=== PATIENT | male | born 1930 | race Caucasian/White ===

== ENCOUNTER → 2017-01-06 | Outpatient (CLI) | payer MEDICARE ==
[2016-01-28 15:00] VITALS: BP 149/65
[~2017-01-06] MED LIST: ACET325T16 PO; ALBU2.5V14 NEB; AMLO10TA2 PO; Amoxicillin/Potassium Clav PO; BUME1TAB PO; CARV3.12 PO; CARV3.122 PO; FLUT1DIS3 IH; FURO-68 PO; FURO20TA3 PO; FURO40TA4 PO; GLIP5TAB10 PO; IPRA3AMP IH; LOSA100T6 PO; LOSA25TA4 PO; LOSA50TA2 PO; METF500T4 PO; METH4TAB6 PO; METO2.5T PO; PANT40TA5 PO; POTA10TA12 PO; PRED-220 PO; PROAIR HFA8.5 GM IH; SIMV10TA3 PO; WARF1TAB7 PO; WARF1TAB74 PO; WARF2.5T71 PO; WARF3TAB7 PO; WARF5TAB7 PO
--- NOTE | 2017-01-06 09:49 | CARD ---
APPROVED REPORT EXAM: Two-dimensional and M-mode echocardiogram with Doppler and color Doppler. Other Information Quality : Fair INDICATION LV Function:Diastolic Diastolic Heart Failure Surgery/Intervention ICD/Pacemaker: 2D DIMENSIONS RVDd3.0 (2.9-3.5cm)Left Atrium(2D)3.6 (1.6-4.0cm) IVSd1.2 (0.7-1.1cm)Aortic Root(2D)2.9 (2.0-3.7cm) LVDd5.3 (3.9-5.9cm)LVOT Diameter2.4 (1.8-2.4cm) PWd1.2 (0.7-1.1cm)LVDs4.1 (2.5-4.0cm) FS (%) 20.0 %SV61.0 ml LVEF(%)40.0 (>50%) Aortic Valve AoV Peak Dedrick.129.3cm/sAoV VTI25.9cm AO Peak GR.6.7mmHgLVOT Peak Dedrick.86.6cm/s AO Mean GR.4mmHgAVA (VMAX)2.98cm2 RAYMUNDO (VTI)3.10cm2 Mitral Valve MV E Sxjqtkuv14.6cm/sMV DECEL [id number] MV A Zihkdimg884.5cm/sE/A Ratio0.5 LEFT VENTRICLE The left ventricle is normal size. There is mild concentric left ventricular hypertrophy. Mild to mod erate left ventricular systolic dysfunction. The Ejection Fraction is 40%. Apical motion consistent w ith pacemaker activation. Transmitral Doppler flow pattern is Grade I-abnormal relaxation pattern. RIGHT VENTRICLE The right ventricle is normal size. The right ventricular systolic function is normal. There is a pac emaker lead in the right ventricle. ATRIA The left atrium size is normal. The right atrium size is normal. A pacemaker is seen in the right atr ium consistent with history. The interatrial septum is intact with no evidence for an atrial septal d efect or patent foramen ovale as noted on 2-D or Doppler imaging. AORTIC VALVE The aortic valve is calcified but opens well. Doppler and Color Flow revealed no significant aortic r egurgitation. There is no significant aortic valvular stenosis. MITRAL VALVE The mitral valve is normal in structure and function. There is no evidence of mitral valve prolapse. There is no mitral valve stenosis. Doppler and Color-flow revealed trace mitral regurgitation. TRICUSPID VALVE The tricuspid valve is normal in structure and function. Doppler and Color Flow revealed no tricuspid valve regurgitation noted. There is no tricuspid valve stenosis. PULMONIC VALVE The pulmonary valve is normal in structure and function. Doppler and Color Flow revealed no pulmonic valvular regurgitation. There is no pulmonic valvular stenosis. GREAT VESSELS The aortic root is normal in size. The ascending aorta is normal in size. The IVC is normal in size a nd collapses >50% with inspiration. PERICARDIAL EFFUSION There is no evidence of significant pericardial effusion. Critical Notification Critical Value: No <Conclusion> Mild to moderate left ventricular systolic dysfunction. Apical motion consistent with pacemaker activation. The Ejection Fraction is 40%. Transmitral Doppler flow pattern is Grade I-abnormal relaxation pattern. There is a pacemaker lead in the right atrium and right ventricle. Doppler and Color-flow revealed trace mitral regurgitation. There is no evidence of significant pericardial effusion.
== END | disposition home or self-care (01) ==
LOC: ECHO 07:49
PROVIDERS: ATTEND Internal Medicine Cardiovascular Disease
DX: I51.7 Cardiomegaly (principal); I50.30 Unspecified diastolic (congestive) heart failure; Z95.0 Presence of cardiac pacemaker
CPT/HCPCS: 93306

== ENCOUNTER → 2017-01-16 | Outpatient (CLI) | payer MEDICARE ==
[2016-01-28 15:00] VITALS: BP 149/65
[~2017-01-16] MED LIST changes: +REGADENOSON 0.4 MG/5 ML DISP.SYRIN. IV ONE
--- NOTE | 2017-01-17 11:15 | RAD ---
APPROVED REPORT Test Type: Pharmacological Stress Nurse/Tech: anuel jaramillo Test Indications: fatigue, dyspnea with exertion Cardiac History: PACEMAKER, HTN, SEE EHR Medications: SEE EHR Medical History: COPD, EMPHYSEMA, DIABETES, REMOTE SMOKING HISTORY, SEE EHR Resting ECG: V PACED IRREGULAR Resting Heart Rate: 69 bpm Resting Blood Pressure: 147/65mmHg Pretest Chest Pain: No chest pain Nurse/Tech Notes DO DISTRESS NOTED, NO CHEST PAIN. PT IS ON 3L NC. Consent: The procedure was explained to the patient in lay terms. Informed consent was witnessed. Jose eout was entered into [facility]. History and Stress Test performed by RT Duane (Shay) (N) Pharm. Details Pharmacologic stress testing was performed using 0.4mg per 5ml of regadenoson given intravenously ove r 7-10 seconds. Stress Symptoms NONE STATED. POST EXERCISE Reason for Termination: Infusion complete Max HR: 89 bpm Max Blood Pressure: 147/65mmHg Chest Pain: No. Arrhythmia: No. ST Change: No. INTERPRETATION Stress EKG Conclusion: Non-diagnostic EKG due to pacing. Imaging Protocol IMAGE PROTOCOL: Rest Tc-99m/stress Tc-99m 1 day Rest: Stress: Viability: Radiopharm.Tc99m NmmlzlzwwZh95j Sestamibi Dose12.1mCi 32mCi Duration 15min. 10min. Img Date 01/16/2017 01/16/2017 Inj-Img Qshe90qez. 60min. Rest Admin Site:IV - Right AntecubitalAdministrator:TINA Guardado Stress Admin Site: IV - Right AntecubitalAdministrator: RT Duane (Shay)(N) STRESS DATA End Diast. Vol.214.0mlAv. Heart Rate90.0bpm End Syst. Vol.124.0mlCO Index BSA0.0L/min Myocardial Wdfo846.0gEject. Dgcgpddl80.0% Stress Rates Pk. Fill Rate2.49EDV/secLVtime Pk. Fill 116.49msec Pk. Empty Rate2.75ESV/secLVtime Pk. Jyuqm620.67msec 03/29 Pk. Fill1.27EDV/sec Stress Scores Regional WT2.00Summed WT30.00 Regional WM0.00Summed WM20.00 LV Perfusion There is a fixed defect of severe intensity and moderate to large in size involving the mid to distal himanshu-septum, apex and mid to distal inferior wall. Wall Motion Moderate global hypokinesis with an EF of 42%. LV Perf. Quant 17 Seg. SSS13.00 17 Seg. SRS13.00 17 Seg. SDS1.00 Stress Defect Extent (% LAD)33.80Rest Defect Extent (% LAD)41.90Rev. Defect Extent (% LAD)0.00 Stress Defect Extent (% LCX) 5.00Rest Defect Extent (% LCX)13.80Rev. Defect Extent (% LCX)0.00 Stress Defect Extent (% RCA)51.10Rest Defect Extent (% RCA)28.90Rev. Defect Extent (% RCA)4.40 Stress Defect Extent (% DUARTE)29.10Rest Defect Extent (% DUARTE)29.60Rev. Defect Extent (% DUARTE)0.90 Other Information Quality:Average Risk Assessment: Moderate Risk Conclusion 1. Non-diagnostic EKG due to pacing. 2. Fixed defect without any evidence of active ischemia or reversibility 3. Moderate LV dysfunction. EF 42% 4. Moderate risk study.
== END | disposition home or self-care (01) ==
LOC: NM 07:43
PROVIDERS: ATTEND Internal Medicine Cardiovascular Disease
DX: E11.9 Type 2 diabetes mellitus without complications (principal); J44.9 Chronic obstructive pulmonary disease, unspecified; I10 Essential (primary) hypertension; I42.9 Cardiomyopathy, unspecified; I49.5 Sick sinus syndrome; R53.83 Other fatigue; R06.00 Dyspnea, unspecified
CPT/HCPCS: 78452; 93017; 96374; 96375; 96376; A9500; J2785

== ENCOUNTER → 2017-04-12 | Outpatient (CLI) | payer MEDICARE | END | disposition home or self-care (01) | LOC: RAD 08:32 | DX: J18.9 Pneumonia, unspecified organism (principal); I51.7 Cardiomegaly; R06.02 Shortness of breath | CPT/HCPCS: 71046 ==

== ENCOUNTER → 2017-05-05 | Outpatient (CLI) | payer MEDICARE | END | disposition home or self-care (01) | LOC: RAD 08:30 | DX: J18.9 Pneumonia, unspecified organism (principal) | CPT/HCPCS: 71046 ==

== ENCOUNTER 2017-05-15 07:51 | Emergency (ER) | payer MEDICARE ==
[2017-05-15 09:14] LABS: POC GLUCOSE 306 mg/dL (70-99)
[2017-05-15] MEDS: DIPHTH,PERTUSS(ACELL),TET TOX 0.5 ML DISP.SYRIN. VAX IM ×2 (09:31)
== END 2017-05-15 10:12 | disposition home or self-care (01) ==
LOC: ER 07:51
DX: S81.812A Laceration without foreign body, left lower leg, initial encounter (principal); E11.9 Type 2 diabetes mellitus without complications; E78.00 Pure hypercholesterolemia, unspecified; I10 Essential (primary) hypertension; I48.91 Unspecified atrial fibrillation; J44.9 Chronic obstructive pulmonary disease, unspecified; Z95.0 Presence of cardiac pacemaker; Z85.46 Personal history of malignant neoplasm of prostate; Z79.01 Long term (current) use of anticoagulants; Z23 Encounter for immunization; W01.0XXA Fall on same level from slipping, tripping and stumbling without subsequent striking against object, initial encounter; Y93.89 Activity, other specified; Y92.89 Other specified places as the place of occurrence of the external cause; Y99.8 Other external cause status
CPT/HCPCS: 73590; 82962; 90471; 90715; 99284-25

== ENCOUNTER → 2017-05-16 | Outpatient (CLI) | payer MEDICARE | END | disposition home or self-care (01) | LOC: PMGWOUND 09:16 | DX: E11.622 Type 2 diabetes mellitus with other skin ulcer (principal); L97.222 Non-pressure chronic ulcer of left calf with fat layer exposed; S80.212A Abrasion, left knee, initial encounter; E11.42 Type 2 diabetes mellitus with diabetic polyneuropathy; E11.65 Type 2 diabetes mellitus with hyperglycemia; E11.51 Type 2 diabetes mellitus with diabetic peripheral angiopathy without gangrene; E11.22 Type 2 diabetes mellitus with diabetic chronic kidney disease; I13.0 Hypertensive heart and chronic kidney disease with heart failure and stage 1 through stage 4 chronic kidney disease, or unspecified chronic kidney disease; N18.3 Chronic kidney disease, stage 3 (moderate); I50.43 Acute on chronic combined systolic (congestive) and diastolic (congestive) heart failure; I25.2 Old myocardial infarction; I25.10 Atherosclerotic heart disease of native coronary artery without angina pectoris; I48.2 Chronic atrial fibrillation; E78.5 Hyperlipidemia, unspecified; M19.90 Unspecified osteoarthritis, unspecified site; G47.33 Obstructive sleep apnea (adult) (pediatric); J44.9 Chronic obstructive pulmonary disease, unspecified; J96.21 Acute and chronic respiratory failure with hypoxia; J44.0 Chronic obstructive pulmonary disease with (acute) lower respiratory infection; J44.1 Chronic obstructive pulmonary disease with (acute) exacerbation; Z85.830 Personal history of malignant neoplasm of bone; Z85.46 Personal history of malignant neoplasm of prostate; Z85.828 Personal history of other malignant neoplasm of skin; Z89.202 Acquired absence of left upper limb, unspecified level; Z87.891 Personal history of nicotine dependence; Z95.810 Presence of automatic (implantable) cardiac defibrillator; V79.60XA Unspecified bus occupant injured in collision with unspecified motor vehicles in traffic accident, initial encounter; Y93.9 Activity, unspecified; Y99.8 Other external cause status; Y92.9 Unspecified place or not applicable | CPT/HCPCS: 99214 ==

== ENCOUNTER → 2017-05-23 | Outpatient (CLI) | payer MEDICARE | END | disposition home or self-care (01) | LOC: PMGWOUND 09:30 | DX: E11.622 Type 2 diabetes mellitus with other skin ulcer (principal); L97.222 Non-pressure chronic ulcer of left calf with fat layer exposed; S80.212D Abrasion, left knee, subsequent encounter; E11.42 Type 2 diabetes mellitus with diabetic polyneuropathy; E11.65 Type 2 diabetes mellitus with hyperglycemia; E11.51 Type 2 diabetes mellitus with diabetic peripheral angiopathy without gangrene; E11.22 Type 2 diabetes mellitus with diabetic chronic kidney disease; I13.0 Hypertensive heart and chronic kidney disease with heart failure and stage 1 through stage 4 chronic kidney disease, or unspecified chronic kidney disease; N18.3 Chronic kidney disease, stage 3 (moderate); I50.43 Acute on chronic combined systolic (congestive) and diastolic (congestive) heart failure; I25.2 Old myocardial infarction; I25.10 Atherosclerotic heart disease of native coronary artery without angina pectoris; I48.2 Chronic atrial fibrillation; E78.5 Hyperlipidemia, unspecified; M19.90 Unspecified osteoarthritis, unspecified site; G47.33 Obstructive sleep apnea (adult) (pediatric); J44.9 Chronic obstructive pulmonary disease, unspecified; J96.21 Acute and chronic respiratory failure with hypoxia; J44.0 Chronic obstructive pulmonary disease with (acute) lower respiratory infection; J44.1 Chronic obstructive pulmonary disease with (acute) exacerbation; Z85.830 Personal history of malignant neoplasm of bone; Z85.46 Personal history of malignant neoplasm of prostate; Z85.828 Personal history of other malignant neoplasm of skin; Z89.202 Acquired absence of left upper limb, unspecified level; Z87.891 Personal history of nicotine dependence; Z95.810 Presence of automatic (implantable) cardiac defibrillator; V79 Bus occupant injured in other and unspecified transport accidents; Z79.01 Long term (current) use of anticoagulants | CPT/HCPCS: 97597; 97598 ==

== ENCOUNTER 2017-05-26 12:18 | Inpatient (IN) | payer MEDICARE ==
[2017-05-26] MEDS: IPRATRPIUM/ALBUTEROL 0.5/2.5MG 3 ML NEBU. NEB (13:29)
[2017-05-26 13:51] LABS: ADD MAN DIFF? NO
[2017-05-26 13:55] LABS: BASO % 1 % (0-3); EOS # 0.1 x10^3/uL (0.0-0.7); EOS % 1 % (0-3); HEMATOCRIT 26.3 % (39.0-53.0); HEMOGLOBIN 8.4 g/dL (13.0-17.5); LYMPH # 0.8 x10^3/uL (1.0-4.8); LYMPH % 11 % (24-48); MEAN CORPUSCULAR HEMOGLOBIN 26 pg (25-35); MEAN CORPUSCULAR HGB CONC 32 g/dL (31-37); MEAN CORPUSCULAR VOLUME 81 fL (79-100); MONO # 0.6 x10^3/uL (0.0-1.1); MONO % 9 % (0-9); NEUT # 5.5 x10^3uL (1.8-7.7); NEUT % 79 % (31-73); PLATELET COUNT 218 x10^3/uL (140-400); RED BLOOD COUNT 3.23 x10^6/uL (4.30-5.70); RED CELL DISTRIBUTION WIDTH 16.4 % (11.5-14.5)
[2017-05-26 14:11] LABS: PARTIAL THROMBOPLASTIN TIME 85 SEC (24-38); PROTHROMBIN TIME PATIENT 43.7 SEC (11.7-14.0)
[2017-05-26 14:17] LABS: ANION GAP 7 (6-14); BLOOD UREA NITROGEN 70 mg/dL (8-26); BUN/CREATININE RATIO 44 (6-20); CALCIUM 7.9 mg/dL (8.5-10.1); CARBON DIOXIDE 34 mmol/L (21-32); CHLORIDE 101 mmol/L (98-107); CREATININE 1.6 mg/dL (0.7-1.3); GFR 41.4; GLUCOSE 345 mg/dL (70-99); POTASSIUM 4.6 mmol/L (3.5-5.1); SODIUM 142 mmol/L (136-145)
[2017-05-26 14:17] LABS: NT-PRO BNP 2969 pg/mL (0-449)
[2017-05-26 14:19] LABS: ALBUMIN 2.5 g/dL (3.4-5.0); ALBUMIN/GLOBULIN RATIO 0.7 (1.0-1.7); ALK PHOS 108 U/L (46-116); ALT (SGPT) 22 U/L (16-63); AST (SGOT) 15 U/L (15-37); LIPASE 194 U/L (73-393); MAGNESIUM 2.2 mg/dL (1.8-2.4); TOTAL BILIRUBIN 0.2 mg/dL (0.2-1.0); TOTAL PROTEIN 6.2 g/dL (6.4-8.2)
[2017-05-26 14:24] LABS: TROPONINI 0.832 ng/mL (0.000-0.055)
[2017-05-26 14:35] LABS: INFLUENZA A PATIENT NEGATIVE (NEGATIVE); INFLUENZA B PATIENT NEGATIVE (NEGATIVE); OBC FLU VALID
[2017-05-26 14:44] LABS: CREATINE KINASE 52 U/L (39-308)
[2017-05-26] MEDS ORDERED: ONDANSETRON PF 4 MG/2 ML VIAL. IV (15:15)
[2017-05-26] MEDS ORDERED: fentaNYL PF VIAL 100 MCG/2 ML VIAL IV (15:15)
[2017-05-26] MEDS: IV NORMAL SALINE 1000ML BAG 1,000 ML IV ×2 (15:40→18:00)
[2017-05-26] MEDS: ASPIRIN ENTERIC COATED 325 MG TABLET.DR. PO (15:40)
[2017-05-26 18:25] LABS: TROPONINI 0.782 ng/mL (0.000-0.055)
[2017-05-26] MEDS ORDERED: diphenhydrAMINE ORAL ELIXIR 12.5 MG/5 ML ML PO (19:15)
[2017-05-26 21:18] LABS: POC GLUCOSE 239 mg/dL (70-99)
[2017-05-26] MEDS ORDERED: ACETAMINOPHEN 325 MG TABLET. PO (21:30)
[2017-05-26] MEDS ORDERED: NON FORMULARY ITEM (Albuterol Sulfate (Proair Hfa Inhaler) 2 PUFF) IH (21:30)
[2017-05-26] MEDS ORDERED: ALBUTEROL SULFATE 2.5 MG/3 ML NEBU. NEB (22:00)
[2017-05-26] MEDS: SIMVASTATIN 10 MG TABLET PO (22:00)
[2017-05-26 22:01] LABS: TROPONINI 0.634 ng/mL (0.000-0.055)
[2017-05-26 23:00] LABS: IMMEDIATE SPIN CROSSMATCH 1 1
[2017-05-26] MEDS: ACETAMINOPHEN 325 MG TABLET. PO (23:09)
[2017-05-26] MEDS: diphenhydrAMINE HCL 25 MG CAPSULE PO (23:09)
[2017-05-26] MEDS: IPRATRPIUM/ALBUTEROL 0.5/2.5MG 3 ML NEBU. IH (23:13)
[2017-05-27] MEDS: FUROSEMIDE 40 MG/4 ML VIAL. IVP (02:34)
[2017-05-27] MEDS: IPRATRPIUM/ALBUTEROL 0.5/2.5MG 3 ML NEBU. IH ×7 (04:07→23:27)
[2017-05-27 04:56] LABS: ADD MAN DIFF? NO
[2017-05-27 05:06] LABS: BASO % 1 % (0-3); EOS # 0.1 x10^3/uL (0.0-0.7); EOS % 1 % (0-3); HEMATOCRIT 28.6 % (39.0-53.0); HEMOGLOBIN 9.3 g/dL (13.0-17.5); LYMPH # 1.2 x10^3/uL (1.0-4.8); LYMPH % 18 % (24-48); MEAN CORPUSCULAR HEMOGLOBIN 27 pg (25-35); MEAN CORPUSCULAR HGB CONC 33 g/dL (31-37); MEAN CORPUSCULAR VOLUME 82 fL (79-100); MONO # 0.6 x10^3/uL (0.0-1.1); MONO % 10 % (0-9); NEUT # 4.5 x10^3uL (1.8-7.7); NEUT % 70 % (31-73); PLATELET COUNT 213 x10^3/uL (140-400); RED BLOOD COUNT 3.49 x10^6/uL (4.30-5.70); RED CELL DISTRIBUTION WIDTH 16.1 % (11.5-14.5); WHITE BLOOD COUNT 6.4 x10^3/uL (4.0-11.0)
[2017-05-27 05:59] LABS: ALBUMIN 2.5 g/dL (3.4-5.0); ALBUMIN/GLOBULIN RATIO 0.6 (1.0-1.7); ALK PHOS 99 U/L (46-116); ALT (SGPT) 23 U/L (16-63); ANION GAP 9 (6-14); AST (SGOT) 15 U/L (15-37); BLOOD UREA NITROGEN 58 mg/dL (8-26); BUN/CREATININE RATIO 45 (6-20); CALCIUM 8.2 mg/dL (8.5-10.1); CARBON DIOXIDE 34 mmol/L (21-32); CHLORIDE 103 mmol/L (98-107); CREATININE 1.3 mg/dL (0.7-1.3); GFR 52.6; GLUCOSE 200 mg/dL (70-99); MAGNESIUM 2.3 mg/dL (1.8-2.4); POTASSIUM 4.3 mmol/L (3.5-5.1); SODIUM 146 mmol/L (136-145); TOTAL BILIRUBIN 0.2 mg/dL (0.2-1.0); TOTAL PROTEIN 6.9 g/dL (6.4-8.2)
[2017-05-27 08:05] LABS: POC GLUCOSE 227 mg/dL (70-99)
[2017-05-27] MEDS ORDERED: NON FORMULARY ITEM (Sitagliptin Phosphate (Januvia) 1 TAB) PO (09:00)
[2017-05-27] MEDS: FLUTICASONE 50MCG/NASAL SPRAY 16GM BOTTLE. NS (09:00)
[2017-05-27] MEDS: LOSARTAN POTASSIUM 50 MG TABLET. PO (09:00)
[2017-05-27] MEDS: FUROSEMIDE 40 MG TABLET. PO (09:00)
[2017-05-27] MEDS: glipiZIDE 5 MG TABLET PO ×2 (10:02→16:42)
[2017-05-27] MEDS: amLODIPine BESYLATE 10 MG TABLET PO (10:02)
[2017-05-27] MEDS: MULTIVITAMIN I-VITE TABLET. PO ×2 (10:02→21:31)
[2017-05-27] MEDS: LINAGLIPTIN 5 MG TABLET PO (10:03)
[2017-05-27] MEDS: CARVEDILOL 3.125 MG TABLET. PO ×2 (10:03→16:45)
[2017-05-27] MEDS: INSULIN ASPART 300 UNITS/3 ML INSULN.PEN SQ ×2 (10:05→13:29)
[2017-05-27 10:13] LABS: PROTHROMBIN TIME PATIENT 43.3 SEC (11.7-14.0)
[2017-05-27 12:15] LABS: POC GLUCOSE 256 mg/dL (70-99)
[2017-05-27] MEDS: PANTOPRAZOLE 40 MG TABLET.DR. PO (16:42)
[2017-05-27 18:01] LABS: POC GLUCOSE 228 mg/dL (70-99)
[2017-05-27 20:28] LABS: POC GLUCOSE 313 mg/dL (70-99)
[2017-05-27] MEDS: SIMVASTATIN 10 MG TABLET PO (21:32)
[2017-05-28] MEDS: IPRATRPIUM/ALBUTEROL 0.5/2.5MG 3 ML NEBU. IH ×6 (04:02→20:23)
[2017-05-28 05:07] LABS: ADD MAN DIFF? NO
[2017-05-28 05:31] LABS: BASO % 1 % (0-3); EOS # 0.1 x10^3/uL (0.0-0.7); EOS % 1 % (0-3); HEMATOCRIT 28.5 % (39.0-53.0); HEMOGLOBIN 9.3 g/dL (13.0-17.5); LYMPH # 0.9 x10^3/uL (1.0-4.8); LYMPH % 14 % (24-48); MEAN CORPUSCULAR HEMOGLOBIN 27 pg (25-35); MEAN CORPUSCULAR HGB CONC 33 g/dL (31-37); MEAN CORPUSCULAR VOLUME 82 fL (79-100); MONO # 0.7 x10^3/uL (0.0-1.1); MONO % 11 % (0-9); NEUT # 4.9 x10^3uL (1.8-7.7); NEUT % 73 % (31-73); PLATELET COUNT 199 x10^3/uL (140-400); RED BLOOD COUNT 3.48 x10^6/uL (4.30-5.70); RED CELL DISTRIBUTION WIDTH 15.9 % (11.5-14.5); WHITE BLOOD COUNT 6.6 x10^3/uL (4.0-11.0)
[2017-05-28 05:37] LABS: INR 4.2 (0.8-1.1); PROTHROMBIN TIME PATIENT 38.1 SEC (11.7-14.0)
[2017-05-28 06:12] LABS: ANION GAP 2 (6-14); BLOOD UREA NITROGEN 42 mg/dL (8-26); CALCIUM 8.2 mg/dL (8.5-10.1); CARBON DIOXIDE 38 mmol/L (21-32); CHLORIDE 103 mmol/L (98-107); CREATININE 1.2 mg/dL (0.7-1.3); GFR 57.7; GLUCOSE 194 mg/dL (70-99); MAGNESIUM 1.9 mg/dL (1.8-2.4); SODIUM 143 mmol/L (136-145)
[2017-05-28] MEDS: FUROSEMIDE 40 MG TABLET. PO (08:37)
[2017-05-28] MEDS: glipiZIDE 5 MG TABLET PO ×2 (08:37→17:04)
[2017-05-28] MEDS: FLUTICASONE 50MCG/NASAL SPRAY 16GM BOTTLE. NS (08:38)
[2017-05-28] MEDS: MULTIVITAMIN I-VITE TABLET. PO ×2 (08:38→22:17)
[2017-05-28] MEDS: amLODIPine BESYLATE 10 MG TABLET PO (08:39)
[2017-05-28] MEDS: LOSARTAN POTASSIUM 50 MG TABLET. PO (08:41)
[2017-05-28] MEDS: CARVEDILOL 3.125 MG TABLET. PO ×2 (08:42→17:05)
[2017-05-28] MEDS: LINAGLIPTIN 5 MG TABLET PO (08:42)
[2017-05-28] MEDS: PANTOPRAZOLE 40 MG TABLET.DR. PO (08:44)
[2017-05-28] MEDS: INSULIN ASPART 300 UNITS/3 ML INSULN.PEN SQ ×3 (08:44→17:08)
[2017-05-28 08:47] LABS: POC GLUCOSE 218 mg/dL (70-99)
[2017-05-28 11:54] LABS: POC GLUCOSE 265 mg/dL (70-99)
[2017-05-28 16:44] LABS: POC GLUCOSE 239 mg/dL (70-99)
[2017-05-28 20:58] LABS: POC GLUCOSE 230 mg/dL (70-99)
[2017-05-28 22:04] LABS: BASE EXCESS ABG 9 mmol/L (-3-3); HCO3 ABG 37 mmol/L (21-28); PH ABG 7.35 (7.35-7.45); PO2 ABG 53 mmHg (65-108); SAT O2 ABG 86 % (92-99)
[2017-05-28 22:06] LABS: PCO2 ABG 68 mmHg (35-46)
[2017-05-28] MEDS: SIMVASTATIN 10 MG TABLET PO (22:17)
[2017-05-28] MEDS: FUROSEMIDE 40 MG/4 ML VIAL. IVP (22:19)
[2017-05-28] MEDS: PHYTONADIONE 10 MG/ML ORAL SOLUTION. PO (22:19)
[2017-05-29] MEDS: IPRATRPIUM/ALBUTEROL 0.5/2.5MG 3 ML NEBU. IH ×6 (04:00→23:27)
[2017-05-29 07:41] LABS: POC GLUCOSE 243 mg/dL (70-99)
[2017-05-29 08:03] LABS: ADD MAN DIFF? NO
[2017-05-29 08:12] LABS: BASO % 1 % (0-3); EOS # 0.1 x10^3/uL (0.0-0.7); EOS % 2 % (0-3); HEMATOCRIT 28.5 % (39.0-53.0); HEMOGLOBIN 9.2 g/dL (13.0-17.5); LYMPH % 15 % (24-48); MEAN CORPUSCULAR HEMOGLOBIN 27 pg (25-35); MEAN CORPUSCULAR HGB CONC 32 g/dL (31-37); MEAN CORPUSCULAR VOLUME 82 fL (79-100); MONO # 0.6 x10^3/uL (0.0-1.1); MONO % 10 % (0-9); NEUT # 4.5 x10^3uL (1.8-7.7); NEUT % 72 % (31-73); PLATELET COUNT 189 x10^3/uL (140-400); RED BLOOD COUNT 3.46 x10^6/uL (4.30-5.70); RED CELL DISTRIBUTION WIDTH 16.2 % (11.5-14.5); WHITE BLOOD COUNT 6.2 x10^3/uL (4.0-11.0)
[2017-05-29 08:26] LABS: INR 2.1 (0.8-1.1); PROTHROMBIN TIME PATIENT 22.4 SEC (11.7-14.0)
[2017-05-29 08:48] LABS: ANION GAP 0 (6-14); BLOOD UREA NITROGEN 46 mg/dL (8-26); CALCIUM 8.4 mg/dL (8.5-10.1); CARBON DIOXIDE 40 mmol/L (21-32); CHLORIDE 102 mmol/L (98-107); CREATININE 1.3 mg/dL (0.7-1.3); GFR 52.6; GLUCOSE 229 mg/dL (70-99); POTASSIUM 4.3 mmol/L (3.5-5.1); SODIUM 142 mmol/L (136-145)
[2017-05-29] MEDS: LINAGLIPTIN 5 MG TABLET PO (10:37)
[2017-05-29] MEDS: amLODIPine BESYLATE 10 MG TABLET PO (10:38)
[2017-05-29] MEDS: FUROSEMIDE 40 MG TABLET. PO (10:38)
[2017-05-29] MEDS: glipiZIDE 5 MG TABLET PO ×2 (10:39→16:05)
[2017-05-29] MEDS: MULTIVITAMIN I-VITE TABLET. PO ×2 (10:40→21:12)
[2017-05-29] MEDS: PANTOPRAZOLE 40 MG TABLET.DR. PO (10:41)
[2017-05-29] MEDS: CARVEDILOL 3.125 MG TABLET. PO ×2 (10:42→17:45)
[2017-05-29] MEDS: INSULIN ASPART 300 UNITS/3 ML INSULN.PEN SQ ×3 (10:44→17:49)
[2017-05-29] MEDS: FLUTICASONE 50MCG/NASAL SPRAY 16GM BOTTLE. NS (10:45)
[2017-05-29] MEDS: LOSARTAN POTASSIUM 50 MG TABLET. PO (11:01)
[2017-05-29 16:41] LABS: POC GLUCOSE 168 mg/dL (70-99)
[2017-05-29 20:55] LABS: POC GLUCOSE 252 mg/dL (70-99)
[2017-05-29 20:55] LABS: POC GLUCOSE 321 mg/dL (70-99)
[2017-05-29] MEDS: SIMVASTATIN 10 MG TABLET PO (21:12)
[2017-05-30] MEDS: IPRATRPIUM/ALBUTEROL 0.5/2.5MG 3 ML NEBU. IH ×6 (04:00→23:15)
[2017-05-30] MEDS: PANTOPRAZOLE 40 MG TABLET.DR. PO ×2 (06:09→10:13)
[2017-05-30] MEDS: INSULIN ASPART 300 UNITS/3 ML INSULN.PEN SQ ×3 (07:30→18:35)
[2017-05-30 07:47] LABS: ADD MAN DIFF? NO
[2017-05-30 07:49] LABS: BASO % 0 % (0-3); EOS # 0.1 x10^3/uL (0.0-0.7); EOS % 1 % (0-3); HEMATOCRIT 27.8 % (39.0-53.0); HEMOGLOBIN 8.9 g/dL (13.0-17.5); LYMPH # 0.7 x10^3/uL (1.0-4.8); LYMPH % 11 % (24-48); MEAN CORPUSCULAR HEMOGLOBIN 27 pg (25-35); MEAN CORPUSCULAR HGB CONC 32 g/dL (31-37); MEAN CORPUSCULAR VOLUME 83 fL (79-100); MONO # 0.6 x10^3/uL (0.0-1.1); MONO % 9 % (0-9); NEUT # 5.5 x10^3uL (1.8-7.7); NEUT % 79 % (31-73); PLATELET COUNT 167 x10^3/uL (140-400); RED BLOOD COUNT 3.37 x10^6/uL (4.30-5.70)
[2017-05-30 08:13] LABS: ANION GAP 4 (6-14); BLOOD UREA NITROGEN 36 mg/dL (8-26); CARBON DIOXIDE 38 mmol/L (21-32); CHLORIDE 102 mmol/L (98-107); CREATININE 1.1 mg/dL (0.7-1.3); GFR 63.8; GLUCOSE 260 mg/dL (70-99); POTASSIUM 4.1 mmol/L (3.5-5.1); SODIUM 144 mmol/L (136-145)
[2017-05-30 08:17] LABS: INR 1.3 (0.8-1.1); PROTHROMBIN TIME PATIENT 15.5 SEC (11.7-14.0)
[2017-05-30 08:48] LABS: POC GLUCOSE 248 mg/dL (70-99)
[2017-05-30] MEDS: LINAGLIPTIN 5 MG TABLET PO (09:00)
[2017-05-30] MEDS: INSULIN DETEMIR 300 UNITS/3 ML INSULN.PEN. SQ (09:00)
[2017-05-30] MEDS: FUROSEMIDE 40 MG TABLET. PO (10:12)
[2017-05-30] MEDS: ASCORBIC ACID 500 MG TABLET PO (10:12)
[2017-05-30] MEDS: MULTIVITAMIN with MINERAL TABLET. PO (10:13)
[2017-05-30] MEDS: MULTIVITAMIN I-VITE TABLET. PO ×2 (10:13→21:01)
[2017-05-30] MEDS: CARVEDILOL 3.125 MG TABLET. PO ×2 (10:13→18:29)
[2017-05-30] MEDS: amLODIPine BESYLATE 10 MG TABLET PO (10:14)
[2017-05-30] MEDS: FLUTICASONE 50MCG/NASAL SPRAY 16GM BOTTLE. NS (10:15)
[2017-05-30] MEDS: LOSARTAN POTASSIUM 50 MG TABLET. PO (10:15)
[2017-05-30 12:27] LABS: POC GLUCOSE 232 mg/dL (70-99)
[2017-05-30] MEDS ORDERED: LIDOCAINE 2% 20 ML VIAL. (13:53)
[2017-05-30] MEDS ORDERED: IODIXANOL 320 MG/ML 100 ML VIAL. (13:53)
[2017-05-30] MEDS ORDERED: fentaNYL PF VIAL 100 MCG/2 ML VIAL (14:00)
[2017-05-30] MEDS ORDERED: MIDAZOLAM HCL/PF 2 MG/2 ML VIAL. (14:01)
[2017-05-30] MEDS: LIDOCAINE 2% 20 ML VIAL. IJ (14:30)
[2017-05-30] MEDS: fentaNYL PF VIAL 100 MCG/2 ML VIAL IV (14:30)
[2017-05-30] MEDS: IODIXANOL 320 MG/ML 100 ML VIAL. IART (14:30)
[2017-05-30] MEDS: MIDAZOLAM HCL/PF 2 MG/2 ML VIAL. IV (14:30)
[2017-05-30 17:11] LABS: POC GLUCOSE 203 mg/dL (70-99)
[2017-05-30] MEDS: glipiZIDE 5 MG TABLET PO (18:29)
[2017-05-30] MEDS ORDERED: INSULIN DETEMIR 300 UNITS/3 ML INSULN.PEN. SQ (21:00)
[2017-05-30] MEDS: SIMVASTATIN 10 MG TABLET PO (21:01)
[2017-05-30 21:09] LABS: POC GLUCOSE 265 mg/dL (70-99)
[2017-05-31] MEDS: IPRATRPIUM/ALBUTEROL 0.5/2.5MG 3 ML NEBU. IH ×5 (02:22→19:31)
[2017-05-31 04:42] LABS: ADD MAN DIFF? NO
[2017-05-31 05:06] LABS: ANION GAP 4 (6-14); BLOOD UREA NITROGEN 40 mg/dL (8-26); CARBON DIOXIDE 40 mmol/L (21-32); CHLORIDE 103 mmol/L (98-107); CREATININE 1.6 mg/dL (0.7-1.3); GFR 41.4; GLUCOSE 216 mg/dL (70-99); POTASSIUM 4.1 mmol/L (3.5-5.1); SODIUM 147 mmol/L (136-145)
[2017-05-31 05:08] LABS: INR 1.3 (0.8-1.1); PROTHROMBIN TIME PATIENT 15.7 SEC (11.7-14.0)
[2017-05-31 05:11] LABS: BASO % 1 % (0-3); EOS # 0.1 x10^3/uL (0.0-0.7); EOS % 2 % (0-3); HEMATOCRIT 25.6 % (39.0-53.0); LYMPH % 17 % (24-48); MEAN CORPUSCULAR HEMOGLOBIN 26 pg (25-35); MEAN CORPUSCULAR HGB CONC 31 g/dL (31-37); MEAN CORPUSCULAR VOLUME 83 fL (79-100); MONO # 0.6 x10^3/uL (0.0-1.1); MONO % 10 % (0-9); NEUT # 4.1 x10^3uL (1.8-7.7); NEUT % 72 % (31-73); PLATELET COUNT 152 x10^3/uL (140-400); RED CELL DISTRIBUTION WIDTH 16.2 % (11.5-14.5); WHITE BLOOD COUNT 5.8 x10^3/uL (4.0-11.0)
[2017-05-31] MEDS: INSULIN ASPART 300 UNITS/3 ML INSULN.PEN SQ ×3 (07:30→17:23)
[2017-05-31 07:49] LABS: POC GLUCOSE 185 mg/dL (70-99)
[2017-05-31] MEDS: glipiZIDE 5 MG TABLET PO ×2 (08:29→17:12)
[2017-05-31] MEDS: CARVEDILOL 3.125 MG TABLET. PO ×2 (08:29→17:11)
[2017-05-31] MEDS: FUROSEMIDE 40 MG TABLET. PO (08:29)
[2017-05-31] MEDS: LINAGLIPTIN 5 MG TABLET PO (08:30)
[2017-05-31] MEDS: ASCORBIC ACID 500 MG TABLET PO (08:30)
[2017-05-31] MEDS: MULTIVITAMIN with MINERAL TABLET. PO (08:30)
[2017-05-31] MEDS: amLODIPine BESYLATE 10 MG TABLET PO (08:30)
[2017-05-31] MEDS: MULTIVITAMIN I-VITE TABLET. PO ×2 (08:30→20:56)
[2017-05-31] MEDS: PANTOPRAZOLE 40 MG TABLET.DR. PO (08:30)
[2017-05-31] MEDS: FLUTICASONE 50MCG/NASAL SPRAY 16GM BOTTLE. NS (08:31)
[2017-05-31] MEDS: LOSARTAN POTASSIUM 50 MG TABLET. PO (08:35)
[2017-05-31] MEDS: INSULIN DETEMIR 300 UNITS/3 ML INSULN.PEN. SQ (08:41)
[2017-05-31] MEDS: IV NORMAL SALINE 1000ML BAG 1,000 ML IV (09:48)
[2017-05-31 11:17] LABS: POC GLUCOSE 295 mg/dL (70-99)
[2017-05-31] MEDS ORDERED: IPRATRPIUM/ALBUTEROL 0.5/2.5MG 3 ML NEBU. (14:35)
[2017-05-31 17:01] LABS: POC GLUCOSE 192 mg/dL (70-99)
[2017-05-31] MEDS: WARFARIN 2 MG TABLET. PO (17:12)
[2017-05-31] MEDS: SIMVASTATIN 10 MG TABLET PO (20:56)
[2017-05-31 20:57] LABS: POC GLUCOSE 269 mg/dL (70-99)
[2017-06-01] MEDS: IPRATRPIUM/ALBUTEROL 0.5/2.5MG 3 ML NEBU. IH ×7 (04:17→23:20)
[2017-06-01 05:55] LABS: ADD MAN DIFF? NO
[2017-06-01 06:06] LABS: BASO % 1 % (0-3); EOS # 0.1 x10^3/uL (0.0-0.7); EOS % 2 % (0-3); HEMOGLOBIN 8.5 g/dL (13.0-17.5); LYMPH % 16 % (24-48); MEAN CORPUSCULAR HEMOGLOBIN 26 pg (25-35); MEAN CORPUSCULAR HGB CONC 32 g/dL (31-37); MEAN CORPUSCULAR VOLUME 83 fL (79-100); MONO # 0.6 x10^3/uL (0.0-1.1); MONO % 10 % (0-9); NEUT # 4.6 x10^3uL (1.8-7.7); NEUT % 72 % (31-73); PLATELET COUNT 156 x10^3/uL (140-400); RED BLOOD COUNT 3.24 x10^6/uL (4.30-5.70); RED CELL DISTRIBUTION WIDTH 16.5 % (11.5-14.5); WHITE BLOOD COUNT 6.4 x10^3/uL (4.0-11.0)
[2017-06-01 06:16] LABS: INR 1.2 (0.8-1.1); PROTHROMBIN TIME PATIENT 14.8 SEC (11.7-14.0)
[2017-06-01 06:25] LABS: ANION GAP 2 (6-14); BLOOD UREA NITROGEN 53 mg/dL (8-26); CALCIUM 8.2 mg/dL (8.5-10.1); CARBON DIOXIDE 39 mmol/L (21-32); CHLORIDE 103 mmol/L (98-107); CREATININE 1.3 mg/dL (0.7-1.3); GFR 52.6; GLUCOSE 206 mg/dL (70-99); POTASSIUM 4.2 mmol/L (3.5-5.1); SODIUM 144 mmol/L (136-145)
[2017-06-01 08:14] LABS: POC GLUCOSE 221 mg/dL (70-99)
[2017-06-01] MEDS: MULTIVITAMIN I-VITE TABLET. PO ×2 (08:47→22:25)
[2017-06-01] MEDS: LINAGLIPTIN 5 MG TABLET PO (08:47)
[2017-06-01] MEDS: glipiZIDE 5 MG TABLET PO ×2 (08:47→17:31)
[2017-06-01] MEDS: ASCORBIC ACID 500 MG TABLET PO (08:47)
[2017-06-01] MEDS: amLODIPine BESYLATE 10 MG TABLET PO (08:49)
[2017-06-01] MEDS: CARVEDILOL 3.125 MG TABLET. PO ×2 (08:49→17:32)
[2017-06-01] MEDS: MULTIVITAMIN with MINERAL TABLET. PO (08:50)
[2017-06-01] MEDS: FUROSEMIDE 40 MG TABLET. PO (09:00)
[2017-06-01] MEDS: LOSARTAN POTASSIUM 50 MG TABLET. PO ×2 (09:00→12:24)
[2017-06-01] MEDS: INSULIN ASPART 300 UNITS/3 ML INSULN.PEN SQ ×3 (09:02→17:37)
[2017-06-01] MEDS: FLUTICASONE 50MCG/NASAL SPRAY 16GM BOTTLE. NS (09:03)
[2017-06-01] MEDS: INSULIN DETEMIR 300 UNITS/3 ML INSULN.PEN. SQ (09:03)
[2017-06-01 11:25] LABS: POC GLUCOSE 311 mg/dL (70-99)
[2017-06-01] MEDS: FUROSEMIDE 40 MG/4 ML VIAL. IVP (15:42)
[2017-06-01] MEDS: WARFARIN 3 MG TABLET. PO (15:43)
[2017-06-01 16:42] LABS: POC GLUCOSE 314 mg/dL (70-99)
[2017-06-01 20:56] LABS: POC GLUCOSE 250 mg/dL (70-99)
[2017-06-01] MEDS: SIMVASTATIN 10 MG TABLET PO (22:25)
[2017-06-02] MEDS: IPRATRPIUM/ALBUTEROL 0.5/2.5MG 3 ML NEBU. IH ×3 (03:41→11:44)
[2017-06-02 04:55] LABS: ADD MAN DIFF? NO
[2017-06-02 05:02] LABS: BASO % 1 % (0-3); EOS # 0.1 x10^3/uL (0.0-0.7); EOS % 2 % (0-3); HEMATOCRIT 26.8 % (39.0-53.0); HEMOGLOBIN 8.3 g/dL (13.0-17.5); LYMPH % 17 % (24-48); MEAN CORPUSCULAR HEMOGLOBIN 26 pg (25-35); MEAN CORPUSCULAR HGB CONC 31 g/dL (31-37); MEAN CORPUSCULAR VOLUME 83 fL (79-100); MONO # 0.5 x10^3/uL (0.0-1.1); MONO % 9 % (0-9); NEUT # 4.2 x10^3uL (1.8-7.7); NEUT % 72 % (31-73); PLATELET COUNT 157 x10^3/uL (140-400); RED BLOOD COUNT 3.22 x10^6/uL (4.30-5.70); RED CELL DISTRIBUTION WIDTH 16.1 % (11.5-14.5); WHITE BLOOD COUNT 5.8 x10^3/uL (4.0-11.0)
[2017-06-02 05:08] LABS: INR 1.3 (0.8-1.1); PROTHROMBIN TIME PATIENT 15.7 SEC (11.7-14.0)
[2017-06-02 05:56] LABS: ANION GAP 2 (6-14); BLOOD UREA NITROGEN 54 mg/dL (8-26); CALCIUM 8.5 mg/dL (8.5-10.1); CARBON DIOXIDE 38 mmol/L (21-32); CHLORIDE 104 mmol/L (98-107); CREATININE 1.2 mg/dL (0.7-1.3); GFR 57.7; GLUCOSE 168 mg/dL (70-99); POTASSIUM 4.1 mmol/L (3.5-5.1); SODIUM 144 mmol/L (136-145)
[2017-06-02 08:44] LABS: POC GLUCOSE 165 mg/dL (70-99)
[2017-06-02] MEDS: MULTIVITAMIN I-VITE TABLET. PO (09:22)
[2017-06-02] MEDS: amLODIPine BESYLATE 10 MG TABLET PO (09:22)
[2017-06-02] MEDS: glipiZIDE 5 MG TABLET PO (09:22)
[2017-06-02] MEDS: ASCORBIC ACID 500 MG TABLET PO (09:22)
[2017-06-02] MEDS: LINAGLIPTIN 5 MG TABLET PO (09:22)
[2017-06-02] MEDS: CARVEDILOL 3.125 MG TABLET. PO (09:23)
[2017-06-02] MEDS: PANTOPRAZOLE 40 MG TABLET.DR. PO (09:23)
[2017-06-02] MEDS: FLUTICASONE 50MCG/NASAL SPRAY 16GM BOTTLE. NS (09:24)
[2017-06-02] MEDS: LOSARTAN POTASSIUM 50 MG TABLET. PO (09:24)
[2017-06-02] MEDS: INSULIN ASPART 300 UNITS/3 ML INSULN.PEN SQ ×2 (09:26→12:38)
[2017-06-02] MEDS: INSULIN DETEMIR 300 UNITS/3 ML INSULN.PEN. SQ (09:29)
[2017-06-02] MEDS: FUROSEMIDE 40 MG TABLET. PO (11:15)
[2017-06-02 11:49] LABS: MAGNESIUM 2.1 mg/dL (1.8-2.4)
[2017-06-02 12:26] LABS: POC GLUCOSE 293 mg/dL (70-99)
[2017-06-02] MEDS: FUROSEMIDE 20 MG/2 ML VIAL. IVP (12:33)
[2017-06-02] MEDS ORDERED: WARFARIN 3 MG TABLET. PO (16:00)
[2017-06-02] MEDS ORDERED: CARVEDILOL 6.25 MG TABLET. PO (17:00)
== END 2017-06-02 13:15 | DRG 286 ==
LOC: ER 12:18 → ED HOLD 14:30 → 2 NORTH 18:35
PROC: 30233N1 Transfusion of Nonautologous Red Blood Cells into Peripheral Vein, Percutaneous Approach (ICD-10-PCS; 2017-05-26)
PROC: 5A09357 Assistance with Respiratory Ventilation, Less than 24 Consecutive Hours, Continuous Positive Airway Pressure (ICD-10-PCS; 2017-05-29)
PROC: 4A023N7 Measurement of Cardiac Sampling and Pressure, Left Heart, Percutaneous Approach (ICD-10-PCS; 2017-05-30)
PROC: 5A09357 Assistance with Respiratory Ventilation, Less than 24 Consecutive Hours, Continuous Positive Airway Pressure (ICD-10-PCS; 2017-05-30)
PROC: B2111ZZ Fluoroscopy of Multiple Coronary Arteries using Low Osmolar Contrast (ICD-10-PCS; 2017-05-30)
PROC: 5A09357 Assistance with Respiratory Ventilation, Less than 24 Consecutive Hours, Continuous Positive Airway Pressure (ICD-10-PCS; 2017-05-31)
PROC: 5A09357 Assistance with Respiratory Ventilation, Less than 24 Consecutive Hours, Continuous Positive Airway Pressure (ICD-10-PCS; 2017-06-01)
PROC: 5A09357 Assistance with Respiratory Ventilation, Less than 24 Consecutive Hours, Continuous Positive Airway Pressure (ICD-10-PCS; principal; 2017-06-02)
DX: I13.0 Hypertensive heart and chronic kidney disease with heart failure and stage 1 through stage 4 chronic kidney disease, or unspecified chronic kidney disease (principal); J96.21 Acute and chronic respiratory failure with hypoxia; N17.9 Acute kidney failure, unspecified; E46 Unspecified protein-calorie malnutrition; D68.9 Coagulation defect, unspecified; E11.22 Type 2 diabetes mellitus with diabetic chronic kidney disease; E11.42 Type 2 diabetes mellitus with diabetic polyneuropathy; E11.51 Type 2 diabetes mellitus with diabetic peripheral angiopathy without gangrene; I48.0 Paroxysmal atrial fibrillation; I50.43 Acute on chronic combined systolic (congestive) and diastolic (congestive) heart failure; J96.22 Acute and chronic respiratory failure with hypercapnia; J44.1 Chronic obstructive pulmonary disease with (acute) exacerbation; L97.929 Non-pressure chronic ulcer of unspecified part of left lower leg with unspecified severity; I42.9 Cardiomyopathy, unspecified; C61 Malignant neoplasm of prostate; D63.8 Anemia in other chronic diseases classified elsewhere; B34.9 Viral infection, unspecified; E11.622 Type 2 diabetes mellitus with other skin ulcer; E66.9 Obesity, unspecified; E78.00 Pure hypercholesterolemia, unspecified; E78.5 Hyperlipidemia, unspecified; E86.0 Dehydration; G47.33 Obstructive sleep apnea (adult) (pediatric); H35.30 Unspecified macular degeneration; I08.1 Rheumatic disorders of both mitral and tricuspid valves; Z68.31 Body mass index [BMI] 31.0-31.9, adult; I48.2 Chronic atrial fibrillation; I87.2 Venous insufficiency (chronic) (peripheral); M19.90 Unspecified osteoarthritis, unspecified site; N18.2 Chronic kidney disease, stage 2 (mild); T45.515A Adverse effect of anticoagulants, initial encounter; Z79.01 Long term (current) use of anticoagulants; Z85.46 Personal history of malignant neoplasm of prostate; Z87.891 Personal history of nicotine dependence; Z91.81 History of falling; Z95.0 Presence of cardiac pacemaker; Z99.81 Dependence on supplemental oxygen; Z79.84 Long term (current) use of oral hypoglycemic drugs
CPT/HCPCS: 36415; 71045; 73502; 80048; 80053; 82550; 82805; 82962; 83690; 83735; 83880; 84484; 85025; 85610; 85730; 86850; 86900; 86901; 86920; 87804; 87804-59; 93005; 93306; 93458; 93971; 94640; 94660; 94760; 94799; 97162-GP; 97165-GO; 97530-GO; 99285; 99285-25; C1769; C1771; C1892; G0269; J1644; J1815; J1940; J7030; J7620; P9016; Q0163

== ENCOUNTER → 2017-07-05 | Outpatient (CLI) | payer MEDICARE | END | disposition home or self-care (01) | LOC: PMGWOUND 08:23 | DX: E11.622 Type 2 diabetes mellitus with other skin ulcer (principal); L97.222 Non-pressure chronic ulcer of left calf with fat layer exposed; S80.821A Blister (nonthermal), right lower leg, initial encounter; E11.42 Type 2 diabetes mellitus with diabetic polyneuropathy; E11.65 Type 2 diabetes mellitus with hyperglycemia; E11.51 Type 2 diabetes mellitus with diabetic peripheral angiopathy without gangrene; E11.22 Type 2 diabetes mellitus with diabetic chronic kidney disease; I13.0 Hypertensive heart and chronic kidney disease with heart failure and stage 1 through stage 4 chronic kidney disease, or unspecified chronic kidney disease; N18.3 Chronic kidney disease, stage 3 (moderate); I50.43 Acute on chronic combined systolic (congestive) and diastolic (congestive) heart failure; I25.2 Old myocardial infarction; I25.10 Atherosclerotic heart disease of native coronary artery without angina pectoris; I48.2 Chronic atrial fibrillation; E78.5 Hyperlipidemia, unspecified; M19.90 Unspecified osteoarthritis, unspecified site; G47.33 Obstructive sleep apnea (adult) (pediatric); J44.9 Chronic obstructive pulmonary disease, unspecified; J96.21 Acute and chronic respiratory failure with hypoxia; J44.0 Chronic obstructive pulmonary disease with (acute) lower respiratory infection; J44.1 Chronic obstructive pulmonary disease with (acute) exacerbation; Z85.830 Personal history of malignant neoplasm of bone; Z85.46 Personal history of malignant neoplasm of prostate; Z85.828 Personal history of other malignant neoplasm of skin; Z89.202 Acquired absence of left upper limb, unspecified level; Z87.891 Personal history of nicotine dependence; Z95.810 Presence of automatic (implantable) cardiac defibrillator; Z79.01 Long term (current) use of anticoagulants; V79.60XA Unspecified bus occupant injured in collision with unspecified motor vehicles in traffic accident, initial encounter; Y93.9 Activity, unspecified; Y99.8 Other external cause status; Y92.9 Unspecified place or not applicable | CPT/HCPCS: 97597; 97598 ==

== ENCOUNTER → 2017-07-12 | Outpatient (CLI) | payer MEDICARE | END | disposition home or self-care (01) | LOC: PMGWOUND 08:33 | DX: E11.622 Type 2 diabetes mellitus with other skin ulcer (principal); L97.222 Non-pressure chronic ulcer of left calf with fat layer exposed; L89.153 Pressure ulcer of sacral region, stage 3; L98.491 Non-pressure chronic ulcer of skin of other sites limited to breakdown of skin; E11.42 Type 2 diabetes mellitus with diabetic polyneuropathy; E11.65 Type 2 diabetes mellitus with hyperglycemia; E11.51 Type 2 diabetes mellitus with diabetic peripheral angiopathy without gangrene; E11.22 Type 2 diabetes mellitus with diabetic chronic kidney disease; I13.0 Hypertensive heart and chronic kidney disease with heart failure and stage 1 through stage 4 chronic kidney disease, or unspecified chronic kidney disease; N18.3 Chronic kidney disease, stage 3 (moderate); I50.43 Acute on chronic combined systolic (congestive) and diastolic (congestive) heart failure; I25.2 Old myocardial infarction; I25.10 Atherosclerotic heart disease of native coronary artery without angina pectoris; I48.2 Chronic atrial fibrillation; E78.5 Hyperlipidemia, unspecified; M19.90 Unspecified osteoarthritis, unspecified site; G47.33 Obstructive sleep apnea (adult) (pediatric); J44.9 Chronic obstructive pulmonary disease, unspecified; J96.21 Acute and chronic respiratory failure with hypoxia; J44.0 Chronic obstructive pulmonary disease with (acute) lower respiratory infection; J44.1 Chronic obstructive pulmonary disease with (acute) exacerbation; Z85.830 Personal history of malignant neoplasm of bone; Z85.46 Personal history of malignant neoplasm of prostate; Z85.828 Personal history of other malignant neoplasm of skin; Z89.202 Acquired absence of left upper limb, unspecified level; Z87.891 Personal history of nicotine dependence; Z95.810 Presence of automatic (implantable) cardiac defibrillator; Z79.01 Long term (current) use of anticoagulants; Z79.4 Long term (current) use of insulin | CPT/HCPCS: 11042; 29581 ==

== ENCOUNTER → 2017-07-14 | Outpatient (CLI) | payer MEDICARE | END | disposition home or self-care (01) | LOC: PMGWOUND 11:56 | DX: E11.622 Type 2 diabetes mellitus with other skin ulcer (principal); L97.222 Non-pressure chronic ulcer of left calf with fat layer exposed; L89.153 Pressure ulcer of sacral region, stage 3; L98.491 Non-pressure chronic ulcer of skin of other sites limited to breakdown of skin; E11.42 Type 2 diabetes mellitus with diabetic polyneuropathy; E11.65 Type 2 diabetes mellitus with hyperglycemia; E11.51 Type 2 diabetes mellitus with diabetic peripheral angiopathy without gangrene; E11.22 Type 2 diabetes mellitus with diabetic chronic kidney disease; I13.0 Hypertensive heart and chronic kidney disease with heart failure and stage 1 through stage 4 chronic kidney disease, or unspecified chronic kidney disease; N18.3 Chronic kidney disease, stage 3 (moderate); I50.43 Acute on chronic combined systolic (congestive) and diastolic (congestive) heart failure; I25.2 Old myocardial infarction; I25.10 Atherosclerotic heart disease of native coronary artery without angina pectoris; I48.2 Chronic atrial fibrillation; E78.5 Hyperlipidemia, unspecified; M19.90 Unspecified osteoarthritis, unspecified site; G47.33 Obstructive sleep apnea (adult) (pediatric); J44.9 Chronic obstructive pulmonary disease, unspecified; J96.21 Acute and chronic respiratory failure with hypoxia; J44.0 Chronic obstructive pulmonary disease with (acute) lower respiratory infection; J44.1 Chronic obstructive pulmonary disease with (acute) exacerbation; Z85.830 Personal history of malignant neoplasm of bone; Z85.46 Personal history of malignant neoplasm of prostate; Z85.828 Personal history of other malignant neoplasm of skin; Z89.202 Acquired absence of left upper limb, unspecified level; Z87.891 Personal history of nicotine dependence; Z95.810 Presence of automatic (implantable) cardiac defibrillator; Z79.01 Long term (current) use of anticoagulants; Z79.4 Long term (current) use of insulin | CPT/HCPCS: 29581 ==

== ENCOUNTER → 2017-07-20 | Outpatient (CLI) | payer MEDICARE | END | disposition home or self-care (01) | LOC: PMGWOUND 08:33 | DX: E11.622 Type 2 diabetes mellitus with other skin ulcer (principal); L89.153 Pressure ulcer of sacral region, stage 3; L98.491 Non-pressure chronic ulcer of skin of other sites limited to breakdown of skin; L89.893 Pressure ulcer of other site, stage 3; L97.222 Non-pressure chronic ulcer of left calf with fat layer exposed; E11.42 Type 2 diabetes mellitus with diabetic polyneuropathy; E11.65 Type 2 diabetes mellitus with hyperglycemia; E11.51 Type 2 diabetes mellitus with diabetic peripheral angiopathy without gangrene; E11.22 Type 2 diabetes mellitus with diabetic chronic kidney disease; I13.0 Hypertensive heart and chronic kidney disease with heart failure and stage 1 through stage 4 chronic kidney disease, or unspecified chronic kidney disease; N18.3 Chronic kidney disease, stage 3 (moderate); I50.43 Acute on chronic combined systolic (congestive) and diastolic (congestive) heart failure; I25.2 Old myocardial infarction; I25.10 Atherosclerotic heart disease of native coronary artery without angina pectoris; I48.2 Chronic atrial fibrillation; E78.5 Hyperlipidemia, unspecified; M19.90 Unspecified osteoarthritis, unspecified site; G47.33 Obstructive sleep apnea (adult) (pediatric); J44.9 Chronic obstructive pulmonary disease, unspecified; J96.21 Acute and chronic respiratory failure with hypoxia; J44.0 Chronic obstructive pulmonary disease with (acute) lower respiratory infection; J44.1 Chronic obstructive pulmonary disease with (acute) exacerbation; Z85.830 Personal history of malignant neoplasm of bone; Z85.46 Personal history of malignant neoplasm of prostate; Z85.828 Personal history of other malignant neoplasm of skin; Z89.202 Acquired absence of left upper limb, unspecified level; Z87.891 Personal history of nicotine dependence; Z95.810 Presence of automatic (implantable) cardiac defibrillator; Z79.01 Long term (current) use of anticoagulants; Z79.4 Long term (current) use of insulin | CPT/HCPCS: 29581; 97597 ==

== ENCOUNTER → 2017-07-27 | Outpatient (CLI) | payer MEDICARE | END | disposition home or self-care (01) | LOC: PMGWOUND 08:19 | DX: I87.312 Chronic venous hypertension (idiopathic) with ulcer of left lower extremity (principal); E11.622 Type 2 diabetes mellitus with other skin ulcer; L97.222 Non-pressure chronic ulcer of left calf with fat layer exposed; L89.153 Pressure ulcer of sacral region, stage 3; I25.10 Atherosclerotic heart disease of native coronary artery without angina pectoris; I48.2 Chronic atrial fibrillation; J44.0 Chronic obstructive pulmonary disease with (acute) lower respiratory infection; J44.1 Chronic obstructive pulmonary disease with (acute) exacerbation; E78.5 Hyperlipidemia, unspecified; G47.33 Obstructive sleep apnea (adult) (pediatric); I25.2 Old myocardial infarction; E11.22 Type 2 diabetes mellitus with diabetic chronic kidney disease; E11.42 Type 2 diabetes mellitus with diabetic polyneuropathy; E11.51 Type 2 diabetes mellitus with diabetic peripheral angiopathy without gangrene; M19.90 Unspecified osteoarthritis, unspecified site; I48.0 Paroxysmal atrial fibrillation; E66.9 Obesity, unspecified; E78.00 Pure hypercholesterolemia, unspecified; I13.0 Hypertensive heart and chronic kidney disease with heart failure and stage 1 through stage 4 chronic kidney disease, or unspecified chronic kidney disease; N18.3 Chronic kidney disease, stage 3 (moderate); I50.43 Acute on chronic combined systolic (congestive) and diastolic (congestive) heart failure; Z87.891 Personal history of nicotine dependence; Z85.46 Personal history of malignant neoplasm of prostate; Z85.830 Personal history of malignant neoplasm of bone; Z95.0 Presence of cardiac pacemaker; Z79.4 Long term (current) use of insulin; Z79.01 Long term (current) use of anticoagulants | CPT/HCPCS: 29581; 97597 ==

== ENCOUNTER → 2017-08-03 | Outpatient (CLI) | payer MEDICARE | END | disposition home or self-care (01) | LOC: PMGWOUND 08:21 | DX: E11.622 Type 2 diabetes mellitus with other skin ulcer (principal); L89.153 Pressure ulcer of sacral region, stage 3; L98.491 Non-pressure chronic ulcer of skin of other sites limited to breakdown of skin; I87.312 Chronic venous hypertension (idiopathic) with ulcer of left lower extremity; L89.893 Pressure ulcer of other site, stage 3; L97.222 Non-pressure chronic ulcer of left calf with fat layer exposed; E11.42 Type 2 diabetes mellitus with diabetic polyneuropathy; E11.65 Type 2 diabetes mellitus with hyperglycemia; E11.51 Type 2 diabetes mellitus with diabetic peripheral angiopathy without gangrene; E11.22 Type 2 diabetes mellitus with diabetic chronic kidney disease; I13.0 Hypertensive heart and chronic kidney disease with heart failure and stage 1 through stage 4 chronic kidney disease, or unspecified chronic kidney disease; N18.3 Chronic kidney disease, stage 3 (moderate); I50.43 Acute on chronic combined systolic (congestive) and diastolic (congestive) heart failure; I25.2 Old myocardial infarction; I25.10 Atherosclerotic heart disease of native coronary artery without angina pectoris; I48.2 Chronic atrial fibrillation; E78.5 Hyperlipidemia, unspecified; M19.90 Unspecified osteoarthritis, unspecified site; G47.33 Obstructive sleep apnea (adult) (pediatric); J44.9 Chronic obstructive pulmonary disease, unspecified; J96.21 Acute and chronic respiratory failure with hypoxia; J44.0 Chronic obstructive pulmonary disease with (acute) lower respiratory infection; J44.1 Chronic obstructive pulmonary disease with (acute) exacerbation; Z85.830 Personal history of malignant neoplasm of bone; Z85.46 Personal history of malignant neoplasm of prostate; Z85.828 Personal history of other malignant neoplasm of skin; Z89.202 Acquired absence of left upper limb, unspecified level; Z87.891 Personal history of nicotine dependence; Z95.810 Presence of automatic (implantable) cardiac defibrillator; Z79.01 Long term (current) use of anticoagulants; Z79.4 Long term (current) use of insulin | CPT/HCPCS: 97597 ==

== ENCOUNTER → 2017-08-10 | Outpatient (CLI) | payer MEDICARE | END | disposition home or self-care (01) | LOC: PMGWOUND 09:20 | DX: E11.622 Type 2 diabetes mellitus with other skin ulcer (principal); I87.312 Chronic venous hypertension (idiopathic) with ulcer of left lower extremity; L97.222 Non-pressure chronic ulcer of left calf with fat layer exposed; E11.42 Type 2 diabetes mellitus with diabetic polyneuropathy; E11.65 Type 2 diabetes mellitus with hyperglycemia; E11.51 Type 2 diabetes mellitus with diabetic peripheral angiopathy without gangrene; E11.22 Type 2 diabetes mellitus with diabetic chronic kidney disease; I13.0 Hypertensive heart and chronic kidney disease with heart failure and stage 1 through stage 4 chronic kidney disease, or unspecified chronic kidney disease; N18.3 Chronic kidney disease, stage 3 (moderate); I50.43 Acute on chronic combined systolic (congestive) and diastolic (congestive) heart failure; I25.2 Old myocardial infarction; I25.10 Atherosclerotic heart disease of native coronary artery without angina pectoris; I48.2 Chronic atrial fibrillation; E78.5 Hyperlipidemia, unspecified; M19.90 Unspecified osteoarthritis, unspecified site; G47.33 Obstructive sleep apnea (adult) (pediatric); J44.9 Chronic obstructive pulmonary disease, unspecified; J96.21 Acute and chronic respiratory failure with hypoxia; J44.0 Chronic obstructive pulmonary disease with (acute) lower respiratory infection; J44.1 Chronic obstructive pulmonary disease with (acute) exacerbation; Z85.830 Personal history of malignant neoplasm of bone; Z85.46 Personal history of malignant neoplasm of prostate; Z85.828 Personal history of other malignant neoplasm of skin; Z89.202 Acquired absence of left upper limb, unspecified level; Z87.891 Personal history of nicotine dependence; Z95.810 Presence of automatic (implantable) cardiac defibrillator; Z79.01 Long term (current) use of anticoagulants; Z79.4 Long term (current) use of insulin | CPT/HCPCS: 29581 ==

== ENCOUNTER → 2017-08-17 | Outpatient (CLI) | payer MEDICARE | END | disposition home or self-care (01) | LOC: PMGWOUND 08:43 | DX: I87.312 Chronic venous hypertension (idiopathic) with ulcer of left lower extremity (principal); E11.622 Type 2 diabetes mellitus with other skin ulcer; L97.222 Non-pressure chronic ulcer of left calf with fat layer exposed; I25.10 Atherosclerotic heart disease of native coronary artery without angina pectoris; J44.0 Chronic obstructive pulmonary disease with (acute) lower respiratory infection; J44.1 Chronic obstructive pulmonary disease with (acute) exacerbation; E78.5 Hyperlipidemia, unspecified; G47.33 Obstructive sleep apnea (adult) (pediatric); I25.2 Old myocardial infarction; E11.42 Type 2 diabetes mellitus with diabetic polyneuropathy; E11.51 Type 2 diabetes mellitus with diabetic peripheral angiopathy without gangrene; M19.90 Unspecified osteoarthritis, unspecified site; E11.22 Type 2 diabetes mellitus with diabetic chronic kidney disease; I12.9 Hypertensive chronic kidney disease with stage 1 through stage 4 chronic kidney disease, or unspecified chronic kidney disease; N18.3 Chronic kidney disease, stage 3 (moderate); E66.9 Obesity, unspecified; I48.2 Chronic atrial fibrillation; I48.0 Paroxysmal atrial fibrillation; E78.00 Pure hypercholesterolemia, unspecified; Z95.0 Presence of cardiac pacemaker; Z85.46 Personal history of malignant neoplasm of prostate; Z85.830 Personal history of malignant neoplasm of bone; Z87.891 Personal history of nicotine dependence; Z79.4 Long term (current) use of insulin; Z79.01 Long term (current) use of anticoagulants | CPT/HCPCS: 97597 ==

== ENCOUNTER → 2017-08-24 | Outpatient (CLI) | payer MEDICARE | END | disposition home or self-care (01) | LOC: PMGWOUND 08:10 | DX: I87.312 Chronic venous hypertension (idiopathic) with ulcer of left lower extremity (principal); E11.622 Type 2 diabetes mellitus with other skin ulcer; L97.222 Non-pressure chronic ulcer of left calf with fat layer exposed; L89.153 Pressure ulcer of sacral region, stage 3; L89.893 Pressure ulcer of other site, stage 3; E11.22 Type 2 diabetes mellitus with diabetic chronic kidney disease; I13.0 Hypertensive heart and chronic kidney disease with heart failure and stage 1 through stage 4 chronic kidney disease, or unspecified chronic kidney disease; N18.3 Chronic kidney disease, stage 3 (moderate); I50.43 Acute on chronic combined systolic (congestive) and diastolic (congestive) heart failure; E11.42 Type 2 diabetes mellitus with diabetic polyneuropathy; E11.51 Type 2 diabetes mellitus with diabetic peripheral angiopathy without gangrene; E11.65 Type 2 diabetes mellitus with hyperglycemia; I25.10 Atherosclerotic heart disease of native coronary artery without angina pectoris; M19.90 Unspecified osteoarthritis, unspecified site; I25.2 Old myocardial infarction; E78.5 Hyperlipidemia, unspecified; I48.91 Unspecified atrial fibrillation; G47.33 Obstructive sleep apnea (adult) (pediatric); E78.00 Pure hypercholesterolemia, unspecified; J44.1 Chronic obstructive pulmonary disease with (acute) exacerbation; E66.9 Obesity, unspecified; I48.0 Paroxysmal atrial fibrillation; Z95.0 Presence of cardiac pacemaker; Z85.828 Personal history of other malignant neoplasm of skin; Z85.830 Personal history of malignant neoplasm of bone; Z87.891 Personal history of nicotine dependence; Z89.202 Acquired absence of left upper limb, unspecified level; Z79.4 Long term (current) use of insulin; Z79.01 Long term (current) use of anticoagulants; Z68.29 Body mass index [BMI] 29.0-29.9, adult | CPT/HCPCS: 29581 ==

== ENCOUNTER → 2017-08-28 | Outpatient (CLI) | payer MEDICARE | END | disposition home or self-care (01) | LOC: PMGWOUND 08:50 | DX: I87.312 Chronic venous hypertension (idiopathic) with ulcer of left lower extremity (principal); E11.622 Type 2 diabetes mellitus with other skin ulcer; L97.222 Non-pressure chronic ulcer of left calf with fat layer exposed; L89.153 Pressure ulcer of sacral region, stage 3; L89.893 Pressure ulcer of other site, stage 3; E11.22 Type 2 diabetes mellitus with diabetic chronic kidney disease; I13.0 Hypertensive heart and chronic kidney disease with heart failure and stage 1 through stage 4 chronic kidney disease, or unspecified chronic kidney disease; N18.3 Chronic kidney disease, stage 3 (moderate); I50.43 Acute on chronic combined systolic (congestive) and diastolic (congestive) heart failure; E11.42 Type 2 diabetes mellitus with diabetic polyneuropathy; E11.51 Type 2 diabetes mellitus with diabetic peripheral angiopathy without gangrene; E11.65 Type 2 diabetes mellitus with hyperglycemia; I25.10 Atherosclerotic heart disease of native coronary artery without angina pectoris; M19.90 Unspecified osteoarthritis, unspecified site; I25.2 Old myocardial infarction; E78.5 Hyperlipidemia, unspecified; I48.91 Unspecified atrial fibrillation; G47.33 Obstructive sleep apnea (adult) (pediatric); E78.00 Pure hypercholesterolemia, unspecified; J44.1 Chronic obstructive pulmonary disease with (acute) exacerbation; E66.9 Obesity, unspecified; I48.0 Paroxysmal atrial fibrillation; Z95.0 Presence of cardiac pacemaker; Z85.828 Personal history of other malignant neoplasm of skin; Z85.830 Personal history of malignant neoplasm of bone; Z87.891 Personal history of nicotine dependence; Z89.202 Acquired absence of left upper limb, unspecified level; Z79.4 Long term (current) use of insulin; Z79.01 Long term (current) use of anticoagulants; Z68.29 Body mass index [BMI] 29.0-29.9, adult | CPT/HCPCS: 29581 ==

== ENCOUNTER → 2017-09-04 | Outpatient (CLI) | payer MEDICARE | END | disposition home or self-care (01) | LOC: PMGWOUND 08:50 | DX: I87.312 Chronic venous hypertension (idiopathic) with ulcer of left lower extremity (principal); E11.622 Type 2 diabetes mellitus with other skin ulcer; L97.222 Non-pressure chronic ulcer of left calf with fat layer exposed; I25.10 Atherosclerotic heart disease of native coronary artery without angina pectoris; J44.1 Chronic obstructive pulmonary disease with (acute) exacerbation; E78.5 Hyperlipidemia, unspecified; E66.9 Obesity, unspecified; G47.33 Obstructive sleep apnea (adult) (pediatric); I25.2 Old myocardial infarction; I48.0 Paroxysmal atrial fibrillation; E78.00 Pure hypercholesterolemia, unspecified; E11.42 Type 2 diabetes mellitus with diabetic polyneuropathy; E11.51 Type 2 diabetes mellitus with diabetic peripheral angiopathy without gangrene; M19.90 Unspecified osteoarthritis, unspecified site; I48.2 Chronic atrial fibrillation; J44.0 Chronic obstructive pulmonary disease with (acute) lower respiratory infection; E11.22 Type 2 diabetes mellitus with diabetic chronic kidney disease; I13.0 Hypertensive heart and chronic kidney disease with heart failure and stage 1 through stage 4 chronic kidney disease, or unspecified chronic kidney disease; N18.3 Chronic kidney disease, stage 3 (moderate); I50.43 Acute on chronic combined systolic (congestive) and diastolic (congestive) heart failure; Z87.891 Personal history of nicotine dependence; Z85.830 Personal history of malignant neoplasm of bone; Z85.828 Personal history of other malignant neoplasm of skin; Z85.46 Personal history of malignant neoplasm of prostate; Z95.0 Presence of cardiac pacemaker; Z79.4 Long term (current) use of insulin; Z79.01 Long term (current) use of anticoagulants | CPT/HCPCS: 29581 ==

== ENCOUNTER → 2017-09-11 | Outpatient (CLI) | payer MEDICARE | END | disposition home or self-care (01) | LOC: PMGWOUND 09:03 | DX: I87.312 Chronic venous hypertension (idiopathic) with ulcer of left lower extremity (principal); E11.622 Type 2 diabetes mellitus with other skin ulcer; L97.222 Non-pressure chronic ulcer of left calf with fat layer exposed; I25.10 Atherosclerotic heart disease of native coronary artery without angina pectoris; J44.1 Chronic obstructive pulmonary disease with (acute) exacerbation; E78.5 Hyperlipidemia, unspecified; E66.9 Obesity, unspecified; G47.33 Obstructive sleep apnea (adult) (pediatric); I25.2 Old myocardial infarction; I48.0 Paroxysmal atrial fibrillation; E78.00 Pure hypercholesterolemia, unspecified; E11.51 Type 2 diabetes mellitus with diabetic peripheral angiopathy without gangrene; M19.90 Unspecified osteoarthritis, unspecified site; I48.2 Chronic atrial fibrillation; J44.0 Chronic obstructive pulmonary disease with (acute) lower respiratory infection; E11.22 Type 2 diabetes mellitus with diabetic chronic kidney disease; I13.0 Hypertensive heart and chronic kidney disease with heart failure and stage 1 through stage 4 chronic kidney disease, or unspecified chronic kidney disease; N18.3 Chronic kidney disease, stage 3 (moderate); I50.43 Acute on chronic combined systolic (congestive) and diastolic (congestive) heart failure; Z87.891 Personal history of nicotine dependence; Z85.830 Personal history of malignant neoplasm of bone; Z85.828 Personal history of other malignant neoplasm of skin; Z85.46 Personal history of malignant neoplasm of prostate; Z95.0 Presence of cardiac pacemaker; Z79.4 Long term (current) use of insulin; Z79.01 Long term (current) use of anticoagulants; Z68.29 Body mass index [BMI] 29.0-29.9, adult | CPT/HCPCS: 29581 ==

== ENCOUNTER → 2017-09-18 | Outpatient (CLI) | payer MEDICARE | END | disposition home or self-care (01) | LOC: PMGWOUND 08:52 | DX: I87.312 Chronic venous hypertension (idiopathic) with ulcer of left lower extremity (principal); E11.622 Type 2 diabetes mellitus with other skin ulcer; L97.222 Non-pressure chronic ulcer of left calf with fat layer exposed; L89.153 Pressure ulcer of sacral region, stage 3; L98.491 Non-pressure chronic ulcer of skin of other sites limited to breakdown of skin; I25.10 Atherosclerotic heart disease of native coronary artery without angina pectoris; J44.1 Chronic obstructive pulmonary disease with (acute) exacerbation; E78.5 Hyperlipidemia, unspecified; E66.9 Obesity, unspecified; G47.33 Obstructive sleep apnea (adult) (pediatric); I25.2 Old myocardial infarction; I48.0 Paroxysmal atrial fibrillation; E78.00 Pure hypercholesterolemia, unspecified; E11.51 Type 2 diabetes mellitus with diabetic peripheral angiopathy without gangrene; M19.90 Unspecified osteoarthritis, unspecified site; I48.2 Chronic atrial fibrillation; J44.0 Chronic obstructive pulmonary disease with (acute) lower respiratory infection; E11.22 Type 2 diabetes mellitus with diabetic chronic kidney disease; I13.0 Hypertensive heart and chronic kidney disease with heart failure and stage 1 through stage 4 chronic kidney disease, or unspecified chronic kidney disease; N18.3 Chronic kidney disease, stage 3 (moderate); I50.43 Acute on chronic combined systolic (congestive) and diastolic (congestive) heart failure; Z87.891 Personal history of nicotine dependence; Z85.830 Personal history of malignant neoplasm of bone; Z85.828 Personal history of other malignant neoplasm of skin; Z85.46 Personal history of malignant neoplasm of prostate; Z95.0 Presence of cardiac pacemaker; Z79.4 Long term (current) use of insulin; Z79.01 Long term (current) use of anticoagulants; Z68.29 Body mass index [BMI] 29.0-29.9, adult | CPT/HCPCS: 99214 ==

== ENCOUNTER → 2017-09-25 | Outpatient (CLI) | payer MEDICARE | END | disposition home or self-care (01) | LOC: PMGWOUND 08:52 | DX: I87.312 Chronic venous hypertension (idiopathic) with ulcer of left lower extremity (principal); E11.622 Type 2 diabetes mellitus with other skin ulcer; L97.222 Non-pressure chronic ulcer of left calf with fat layer exposed; L89.153 Pressure ulcer of sacral region, stage 3; L98.491 Non-pressure chronic ulcer of skin of other sites limited to breakdown of skin; I25.10 Atherosclerotic heart disease of native coronary artery without angina pectoris; J44.1 Chronic obstructive pulmonary disease with (acute) exacerbation; E78.5 Hyperlipidemia, unspecified; E66.9 Obesity, unspecified; G47.33 Obstructive sleep apnea (adult) (pediatric); I25.2 Old myocardial infarction; I48.0 Paroxysmal atrial fibrillation; E78.00 Pure hypercholesterolemia, unspecified; E11.51 Type 2 diabetes mellitus with diabetic peripheral angiopathy without gangrene; M19.90 Unspecified osteoarthritis, unspecified site; I48.2 Chronic atrial fibrillation; J44.0 Chronic obstructive pulmonary disease with (acute) lower respiratory infection; E11.22 Type 2 diabetes mellitus with diabetic chronic kidney disease; I13.0 Hypertensive heart and chronic kidney disease with heart failure and stage 1 through stage 4 chronic kidney disease, or unspecified chronic kidney disease; N18.3 Chronic kidney disease, stage 3 (moderate); I50.43 Acute on chronic combined systolic (congestive) and diastolic (congestive) heart failure; Z87.891 Personal history of nicotine dependence; Z85.830 Personal history of malignant neoplasm of bone; Z85.828 Personal history of other malignant neoplasm of skin; Z85.46 Personal history of malignant neoplasm of prostate; Z95.0 Presence of cardiac pacemaker; Z79.4 Long term (current) use of insulin; Z79.01 Long term (current) use of anticoagulants; Z68.29 Body mass index [BMI] 29.0-29.9, adult | CPT/HCPCS: 99214 ==

== ENCOUNTER → 2017-10-02 | Outpatient (CLI) | payer MEDICARE | END | disposition home or self-care (01) | LOC: PMGWOUND 08:51 | DX: I87.312 Chronic venous hypertension (idiopathic) with ulcer of left lower extremity (principal); E11.622 Type 2 diabetes mellitus with other skin ulcer; L97.222 Non-pressure chronic ulcer of left calf with fat layer exposed; I25.10 Atherosclerotic heart disease of native coronary artery without angina pectoris; J44.1 Chronic obstructive pulmonary disease with (acute) exacerbation; E78.5 Hyperlipidemia, unspecified; E66.9 Obesity, unspecified; I25.2 Old myocardial infarction; I48.0 Paroxysmal atrial fibrillation; E78.00 Pure hypercholesterolemia, unspecified; E11.51 Type 2 diabetes mellitus with diabetic peripheral angiopathy without gangrene; M19.90 Unspecified osteoarthritis, unspecified site; I48.2 Chronic atrial fibrillation; J44.0 Chronic obstructive pulmonary disease with (acute) lower respiratory infection; E11.22 Type 2 diabetes mellitus with diabetic chronic kidney disease; I13.0 Hypertensive heart and chronic kidney disease with heart failure and stage 1 through stage 4 chronic kidney disease, or unspecified chronic kidney disease; N18.3 Chronic kidney disease, stage 3 (moderate); I50.43 Acute on chronic combined systolic (congestive) and diastolic (congestive) heart failure; Z87.891 Personal history of nicotine dependence; Z85.830 Personal history of malignant neoplasm of bone; Z85.828 Personal history of other malignant neoplasm of skin; Z85.46 Personal history of malignant neoplasm of prostate; Z95.0 Presence of cardiac pacemaker; Z79.4 Long term (current) use of insulin; Z79.01 Long term (current) use of anticoagulants; Z68.29 Body mass index [BMI] 29.0-29.9, adult | CPT/HCPCS: 99214 ==

== ENCOUNTER → 2017-10-09 | Outpatient (CLI) | payer MEDICARE | END | disposition home or self-care (01) | LOC: PMGWOUND 08:49 | DX: I87.312 Chronic venous hypertension (idiopathic) with ulcer of left lower extremity (principal); E11.622 Type 2 diabetes mellitus with other skin ulcer; L97.222 Non-pressure chronic ulcer of left calf with fat layer exposed; I25.10 Atherosclerotic heart disease of native coronary artery without angina pectoris; I48.2 Chronic atrial fibrillation; J44.0 Chronic obstructive pulmonary disease with (acute) lower respiratory infection; J44.1 Chronic obstructive pulmonary disease with (acute) exacerbation; E78.5 Hyperlipidemia, unspecified; E66.9 Obesity, unspecified; I25.2 Old myocardial infarction; I48.0 Paroxysmal atrial fibrillation; E11.51 Type 2 diabetes mellitus with diabetic peripheral angiopathy without gangrene; M19.90 Unspecified osteoarthritis, unspecified site; G47.33 Obstructive sleep apnea (adult) (pediatric); E11.42 Type 2 diabetes mellitus with diabetic polyneuropathy; E78.00 Pure hypercholesterolemia, unspecified; E11.22 Type 2 diabetes mellitus with diabetic chronic kidney disease; I13.0 Hypertensive heart and chronic kidney disease with heart failure and stage 1 through stage 4 chronic kidney disease, or unspecified chronic kidney disease; N18.3 Chronic kidney disease, stage 3 (moderate); I50.43 Acute on chronic combined systolic (congestive) and diastolic (congestive) heart failure; Z85.830 Personal history of malignant neoplasm of bone; Z85.46 Personal history of malignant neoplasm of prostate; Z85.828 Personal history of other malignant neoplasm of skin; Z79.4 Long term (current) use of insulin; Z79.01 Long term (current) use of anticoagulants; Z95.0 Presence of cardiac pacemaker | CPT/HCPCS: 99213 ==

== ENCOUNTER → 2019-11-07 | Outpatient (CLI) | payer MEDICARE ==
[2019-06-10 15:00] VITALS: BP 108/57
[~2019-11-07] MED LIST changes: +ACET-2061 PO; -ACET325T16 PO; +ALBU2.5V8 IH; -AMLO10TA2 PO; +AMLO10TA8 PO; +ASCO500T4 PO; +BUDE0.5A NEB; -BUME1TAB PO; +BUME1TAB3 PO; +CARV3.1210 PO; -CARV3.122 PO; +CEPH-264 PO; +DAPA5TAB PO; +FERR325T14 PO; +FLUT9.9S NS; +FURO10VI IVP; +GUAI12003 PO; +INSU100I17 SQ; +INSU100I27 SQ; -IPRA3AMP IH; +IPRA3AMP29 IH; +LEVO500T59 PO; +LOSA-73 PO; +LOSA100T14 PO; -LOSA100T6 PO; -LOSA25TA4 PO; +LOSA25TA54 PO; -LOSA50TA2 PO; +METF500T16 PO; -METF500T4 PO; +METO5TAB4 PO; +MINO100T2 PO; +MONT10TA49 PO; +MULT1CAP15 PO; -PANT40TA5 PO; +PANT40TA77 PO; -POTA10TA12 PO; +POTASSIUM CHLO10 ME1 PO; -PROAIR HFA8.5 GM IH; +Pantoprazole PO; -REGADENOSON 0.4 MG/5 ML DISP.SYRIN. IV ONE; +SIMV10TA15 PO; -SIMV10TA3 PO; +SITA100T PO; +SITA50TA PO; +VIT1CAPS12 PO; +WARF-31 PO; +WARF1TAB2 PO; +WARF1TAB69 PO; -WARF1TAB7 PO; -WARF1TAB74 PO; +WARF3TAB50 PO; -WARF3TAB7 PO; -WARF5TAB7 PO
[2019-11-07 14:45] LABS: CREATININE 1.7 mg/dL (0.7-1.3); GFR 38.3; POTASSIUM 4.7 mmol/L (3.5-5.1)
== END | disposition home or self-care (01) ==
LOC: LAB 14:15
PROVIDERS: ATTEND Internal Medicine Cardiovascular Disease
DX: I50.9 Heart failure, unspecified (principal)
CPT/HCPCS: 36415; 80048; 83880

== ENCOUNTER 2019-11-22 23:32 | Inpatient (IN) | payer MEDICARE ==
[~2019-11-22] VITALS: Ht 167.6 cm; Wt 87.2 kg
[2019-11-23 00:14] LABS: BASO % 1 % (0-3); EOS # 0.1 x10^3/uL (0.0-0.7); EOS % 1 % (0-3); HEMATOCRIT 27.7 % (39.0-53.0); HEMOGLOBIN 8.7 g/dL (13.0-17.5); LYMPH # 1.5 x10^3/uL (1.0-4.8); LYMPH % 17 % (24-48); MEAN CORPUSCULAR HEMOGLOBIN 27 pg (25-35); MEAN CORPUSCULAR HGB CONC 32 g/dL (31-37); MEAN CORPUSCULAR VOLUME 85 fL (79-100); MONO # 0.6 x10^3/uL (0.0-1.1); MONO % 6 % (0-9); NEUT # 6.7 x10^3/uL (1.8-7.7); NEUT % 75 % (31-73); PLATELET COUNT 143 x10^3/uL (140-400); RED BLOOD COUNT 3.27 x10^6/uL (4.30-5.70); WHITE BLOOD COUNT 8.8 x10^3/uL (4.0-11.0)
[2019-11-23 00:28] LABS: CREATININE 1.6 mg/dL (0.7-1.3); GFR 41.1; POTASSIUM 4.8 mmol/L (3.5-5.1)
--- NOTE | 2019-11-23 00:46 | PHYS DOC ---
Past Medical History Past Medical History: A-Fib, COPD, Diabetes-Type II, High Cholesterol, Hypertension Additional Past Medical Histor: PROSTATE CA, MACULAR DEGENERATION, EMPHYSEMA Past Surgical History: Pacemaker, Other Additional Past Surgical Histo: L AMP ARM/SHOULDER/CLAVICLE, PROSTATE CA Smoking Status: Former Smoker Alcohol Use: Sober Drug Use: None General Adult EDM: Chief Complaint: SHORTNESS OF BREATH HPI: HPI: The history was obtained from the patient. Patient is a 89-year male with PMH multiple coronaries including oxygen dependent COPD who presents with a chief complaint of progressive shortness of breath over the past week. He states the shortness of breath seems to be worse with exertion. He states this is worse than normal. He does use approximately 2 to 4 L of nasal cannula at baseline. He states he does take a daily steroid. Denies any recent antibiotics for his lungs. He states he has been on some antibiotics for his lower extremity wounds. He notes that he has wounds on his lower extremity due to a fall. He states he is a poor healer due to diabetes. Denies any chest pain. States tonight his BiPAP breathing machine at home malfunction and stopped working. He called a nursing hotline who encouraged him to call the ambulance. He states he is unsure why his BiPAP device malfunction. Denies any fevers. Denies any known exposure to coronavirus. States he does follow Dr. Taylor for his pulmonary care. No other complaints. Review of Systems: Review of Systems: Constitutional: Denies fever or chills. [] Eyes: Denies change in visual acuity. [] HENT: Denies nasal congestion or sore throat. [] Respiratory: Positive for shortness of breath Cardiovascular: Denies chest pain or edema. [] GI: Denies abdominal pain, nausea, vomiting, bloody stools or diarrhea. [] : Denies dysuria. [] Musculoskeletal: Denies back pain or joint pain. [] Integument: Denies rash. [] Neurologic: Denies headache, focal weakness or sensory changes. [] Endocrine: Denies polyuria or polydipsia. [] Lymphatic: Denies swollen glands. [] Psychiatric: Denies depression or anxiety. [] Heart Score: Risk Factors: Risk Factors: DM, Current or recent (<one month) smoker, HTN, HLP, family history of CAD, obesity. Risk Scores: Score 0 - 3: 2.5% MACE over next 6 weeks - Discharge Home Score 4 - 6: 20.3% MACE over next 6 weeks - Admit for Clinical Observation Score 7 - 10: 72.7% MACE over next 6 weeks - Early Invasive Strategies Allergies: Allergies: Allergies Coded Allergies Type Severity Reaction Last Updated Verified No Known Drug Allergies 02/16/15 No Physical Exam: PE: Constitutional: Well developed, well nourished, no acute distress, non-toxic appearance. [] HENT: Normocephalic, atraumatic, bilateral external ears normal, oropharynx moist, no oral exudates, nose normal. [] Eyes: PERRLA, EOMI, conjunctiva normal, no discharge. [] Neck: Normal range of motion, no tenderness, supple, no stridor. [] Cardiovascular:Heart rate regular rhythm, no murmur [] Lungs & Thorax: Poor aeration overall. Not tachypneic. Speaking in full sentences. 99% on 2 L nasal cannula. Abdomen: soft, no tenderness, no masses, no pulsatile masses. [] Skin: Warm, dry, no erythema, no rash. [] Back: No tenderness, no CVA tenderness. [] Extremities: 3 x 3 cm chronic well-healing wound noted to the left anterior cabrera. No surrounding erythema or induration.. Chronic 2 x 2 centimeter well- healed wound to the right anterior cabrera. Chronic 3 x 3 cm well-healed wound inferior to the right kneecap. No surrounding erythema or induration noted. Neurologic: Alert and oriented X 3, normal motor function, normal sensory function, no focal deficits noted. [] Psychologic: Affect normal, judgement normal, mood normal. [] Current Patient Data: Labs: Laboratory Tests Test 11/22/19 23:45 White Blood Count 8.8 x10^3/uL (4.0-11.0) Red Blood Count 3.27 x10^6/uL (4.30-5.70) L Hemoglobin 8.7 g/dL (13.0-17.5) L Hematocrit 27.7 % (39.0-53.0) L Mean Corpuscular Volume 85 fL (79-100) Mean Corpuscular Hemoglobin 27 pg (25-35) Mean Corpuscular Hemoglobin Concent 32 g/dL (31-37) Red Cell Distribution Width 16.0 % (11.5-14.5) H Platelet Count 143 x10^3/uL (140-400) Neutrophils (%) (Auto) 75 % (31-73) H Lymphocytes (%) (Auto) 17 % (24-48) L Monocytes (%) (Auto) 6 % (0-9) Eosinophils (%) (Auto) 1 % (0-3) Basophils (%) (Auto) 1 % (0-3) Neutrophils # (Auto) 6.7 x10^3/uL (1.8-7.7) Lymphocytes # (Auto) 1.5 x10^3/uL (1.0-4.8) Monocytes # (Auto) 0.6 x10^3/uL (0.0-1.1) Eosinophils # (Auto) 0.1 x10^3/uL (0.0-0.7) Basophils # (Auto) 0.0 x10^3/uL (0.0-0.2) Sodium Level 143 mmol/L (136-145) Potassium Level 4.8 mmol/L (3.5-5.1) Chloride Level 105 mmol/L (98-107) Carbon Dioxide Level 38 mmol/L (21-32) H Anion Gap 0 (6-14) L Blood Urea Nitrogen 85 mg/dL (8-26) H Creatinine 1.6 mg/dL (0.7-1.3) H Estimated GFR (Cockcroft-Gault) 41.1 Glucose Level 196 mg/dL (70-99) H Calcium Level 8.0 mg/dL (8.5-10.1) L Laboratory Tests 11/22/19 23:45 Laboratory Tests 11/22/19 23:45 EKG: EKG: EKG consistent with normal sinus rhythm. Ventricular rate of 76 bpm. Left axis noted. Slightly widened QRS complex. Nonspecific interventricular conduction delay appreciated. ST depression in lead V6. No ST segment elevation noted. Overall similar to EKG from June 06, 2019. Radiology/Procedures: Radiology/Procedures: [] Course & Med Decision Making: Course & Med Decision Making Pertinent Labs and Imaging studies reviewed. (See chart for details) Patient is an 89-year-old male who presents with chief complaint of shortness of breath. He states that his nightly BiPAP machine broke tonight. Vital signs noted above. Physical exam noted above. Patient's shortness of breath is likely not acute in nature secondary to his home machine malfunction. Although he does report some increase in exertional dyspnea over the past week. Patient is 98% on 2 L nasal cannula. He does have a slight elevation of his proBNP. Diuresis will be deferred as he shows no signs of hypoxia. Patient will be hospitalized. Signout has been given to Dr. Lyon. COVID-19 CRITERIA: The patient was evaluated during the global COVID-19 miller demic, and that diagnosis was suspected/considered upon their initial presentation. Their evaluation, treatment and testing was consistent with current guidelines for patients who present with complaints or symptoms that may be related to COVID-19. Dragon Disclaimer: Dragon Disclaimer: This electronic medical record was generated, in whole or in part, using a voice recognition dictation system. Departure Departure Impression: Primary Impression: Chronic respiratory failure with hypoxia Additional Impression: COPD (chronic obstructive pulmonary disease) Qualified Codes: J44.9 - Chronic obstructive pulmonary disease, unspecified Disposition: ADMITTED INPATIENT Condition: STABLE Referrals: REYNA LYON MD (PCP) Justicifation of Admission Dx: Justifications for Admission: Justification of Admission Dx: Yes Comments: chronic hypoxic respiratory failure GABRIEL PRO DO Nov 23, 2019 00:46
[2019-11-23] MEDS ORDERED: ACETAMINOPHEN 325 MG TABLET. PO PRN (01:45)
[2019-11-23] MEDS ORDERED: ONDANSETRON PF 4 MG/2 ML VIAL. IV PRN (01:45)
[2019-11-23 03:00] VITALS: BP 157/68
[2019-11-23 03:05] LABS: ISTAT BE VENOUS 11 mmol/L (0-3); ISTAT HCO3 VEN 39 mmol/L (24-28); ISTAT PCO2 VEN 90 mmHg (41-51); ISTAT PH VEN 7.24 (7.32-7.42); ISTAT PO2 VEN 125 mmHg (20-40); ISTAT SAT O2 VEN 98 %; ISTAT TCO2 VEN 41 mmol/L (21-32)
--- NOTE | 2019-11-23 04:30 | NUR ---
Spoke to Dr. Lyon and Dr. Florence regarding pt's VBG levels and informed of pt with desaturations in 80's when pt is sleeping. Received ok orders for bipap and RT has been informed. Will continue to monitor at this time.
--- NOTE | 2019-11-23 04:50 | NUR ---
Received orders for bipap. Called [employer] to assess room to make sure room was set up for negative pressure. After Charge Nurse set up box for airflow in room. Room was tested by marine electronics technician. No complications noted at this time. Room ok for bipap.
--- NOTE | 2019-11-23 05:25 | RAD ---
Study: CR CHEST AP ONLY Indication: Shortness of breath. Comparison: 06/06/2019 Findings: Right chest wall dual-lead pacer. The cardiomediastinal silhouette is again seen to be enlarged. The left lower lung is obscured by the heart and the left costophrenic angle is not included in the [id number]. What is seen of the left lower lung is similar to the prior and there is presumed persistence of a small pleural effusion. Probable small pleural effusion on the right with overlying volume loss. Haziness the right lower lung is more conspicuous from the prior. No lobar infiltrate seen throughout the aerated right or left lungs. Background increased lung markings. The left upper extremity to include the shoulder girdle is absent. Impression: 1. Increased hazy attenuation at the right lower lung from 06/06/2019. Considerations include progressive volume loss versus an infectious infiltrate. 2. Probable small bilateral pleural effusions but a component of pleural scarring is likely present as well. 3. Unchanged cardiomediastinal silhouette enlargement. Electronically signed by: PEGGY ORTIZ MD (11/23/2019 5:22 AM) [id number]
[2019-11-23] MEDS ORDERED: DEXTROSE 50% 25 GM / 50ML DISP.SYRIN. IV PRN (06:00)
[2019-11-23] MEDS ORDERED: ALBUTEROL SULFATE 2.5 MG/3 ML NEBU. NEB PRN (06:15)
[2019-11-23] MEDS ORDERED: BUME1TAB3 PO (06:16)
[2019-11-23] MEDS ORDERED: WARF2TAB96 PO (06:16)
[2019-11-23] MEDS ORDERED: SITA100T PO (06:16)
[2019-11-23] MEDS: IPRATRPIUM/ALBUTEROL 0.5/2.5MG 3 ML NEBU. IH SCH ×5 (07:00→22:00)
[2019-11-23 07:28] VITALS: BP 144/58
[2019-11-23] MEDS: glipiZIDE 5 MG TABLET PO SCH ×2 (08:51→16:20)
[2019-11-23] MEDS: FERROUS SULFATE 325 MG TABLET. PO SCH (08:52)
[2019-11-23] MEDS: BUMETANIDE 1 MG TABLET. PO SCH (08:52)
[2019-11-23] MEDS: LINAGLIPTIN 5 MG TABLET PO SCH (08:52)
[2019-11-23] MEDS: MULTIVITAMIN with MINERAL TABLET. PO SCH (08:52)
[2019-11-23] MEDS: MULTIVITAMIN I-VITE TABLET. PO SCH (08:53)
[2019-11-23] MEDS: metOLazone 2.5 MG TABLET PO SCH (08:53)
[2019-11-23] MEDS: amLODIPine BESYLATE 5 MG TABLET PO SCH (08:53)
[2019-11-23] MEDS: CARVEDILOL 3.125 MG TABLET. PO SCH ×2 (08:54→16:22)
[2019-11-23] MEDS ORDERED: WARFARIN 2 MG TABLET. PO SCH (09:00)
[2019-11-23 09:49] LABS: BASO % 1 % (0-3); EOS % 0 % (0-3); HEMOGLOBIN 8.6 g/dL (13.0-17.5); LYMPH # 1.1 x10^3/uL (1.0-4.8); LYMPH % 14 % (24-48); MEAN CORPUSCULAR HEMOGLOBIN 26 pg (25-35); MEAN CORPUSCULAR HGB CONC 31 g/dL (31-37); MEAN CORPUSCULAR VOLUME 85 fL (79-100); MONO # 0.4 x10^3/uL (0.0-1.1); MONO % 6 % (0-9); NEUT # 6.1 x10^3/uL (1.8-7.7); NEUT % 79 % (31-73); PLATELET COUNT 134 x10^3/uL (140-400); RED BLOOD COUNT 3.28 x10^6/uL (4.30-5.70); RED CELL DISTRIBUTION WIDTH 16.3 % (11.5-14.5); WHITE BLOOD COUNT 7.7 x10^3/uL (4.0-11.0)
[2019-11-23 09:51] LABS: ALBUMIN 3.2 g/dL (3.4-5.0); ALBUMIN/GLOBULIN RATIO 0.8 (1.0-1.7); CALCIUM 7.8 mg/dL (8.5-10.1); CREATININE 1.5 mg/dL (0.7-1.3); GFR 44.3; POTASSIUM 4.7 mmol/L (3.5-5.1); TOTAL BILIRUBIN 0.3 mg/dL (0.2-1.0); TOTAL PROTEIN 7.2 g/dL (6.4-8.2)
[2019-11-23 10:32] LABS: PROTHROMBIN TIME PATIENT 18.2 SEC (11.7-14.0)
[2019-11-23 11:55] VITALS: BP 137/64
--- NOTE | 2019-11-23 12:51 | PDOC ---
Provider Note Provider Note H&P dictated #[id number] Justifications for Admission Other Justification REYNA SHAW MD Nov 23, 2019 12:51
--- NOTE | 2019-11-23 13:11 | RAD ---
PORTABLE CHEST 1V INDICATION: RF respiratory failure. COMPARISON STUDY: 11/23/2019. FINDINGS: Life Support Devices: Right pectoral pacemaker. Lungs: Normal lung volume. Stable right basilar opacities. Normal pulmonary vasculature. Pleura: Stable small bilateral pleural effusions. Heart and Mediastinum: Cardiomegaly. Atherosclerosis of the thoracic aorta. IMPRESSION: 1. Stable right basilar opacities. 2. Stable small bilateral pleural effusions. Electronically signed by: Phuc Rodriguez MD (11/23/2019 1:08 PM) [id number]
--- NOTE | 2019-11-23 13:24 | HP ---
ADMIT DATE: 11/23/2019 HISTORY OF PRESENT ILLNESS: This is an 89-year-old male who has been seen several times recently in my office and who is known to have multiple medical problems, who has chronic respiratory failure, on oxygen by nasal cannula and also using Trilogy at home, became more short of breath in the last 3 weeks. His dyspnea continued to get worse. He was noted to be in acute on chronic both systolic and diastolic congestive heart failure and has a history of ejection fraction of 30%. I increased his Bumex to 1 mg twice daily and then subsequently also changed to metolazone from 5 mg every other day to daily. The patient also saw the diesel service technician. His swelling did improve some, but his dyspnea did not get much better. His oxygen requirements significantly up. He did not want to be hospitalized, but yesterday, he became much more short of breath and came to the Emergency Room and because of the worsening dyspnea, congestive heart failure, hypoxia and weakness, he was brought to the Emergency Room and has been admitted for further evaluation and management. He also stated that his BiPAP machine started malfunctioning also and as noted earlier he has Trilogy at home. Systems review at present time, the patient does admit to some cough, congestion, dyspnea. He denies any abdominal pain, nausea, vomiting, or diarrhea. His appetite is good. He feels tired. He has body aches. Denies any chills or fever. Last night, his ABG showed pH of 7.24, pCO2 of 90 and a pO2 of 125 on room air and the patient was placed on BiPAP and today also he has continued to require BiPAP. His WBC count was 8.8, hemoglobin 8.7. Sodium 143, potassium 4.8, BUN 85, creatinine 1.6. Today, his sodium is 146. Magnesium is 3. Albumin is 3.2. His BNP was 4306. Troponin was less than 0.017. Chest x-ray showed increased hazy attenuation in the right lower lung from 05/08/2019. Also, has small bilateral pleural effusions. Because of his multiple medical problems, the patient was admitted for further evaluation and management. PAST MEDICAL HISTORY: The patient was last admitted here in 05/2019 for acute renal failure with chronic kidney disease stage 3, acute on chronic diastolic and systolic congestive heart failure. He also recently developed multiple blisters and wounds of both lower extremities. That are slowly improving. He has seen the healthcare science specialist and as the swelling is improving, his wounds are also slowly improving. He has diabetes mellitus type 2 with neuropathy, hypertension, acute on chronic systolic and diastolic congestive heart failure with ejection fraction of 30%, hypertension, diabetes mellitus type 2 not controlled, atrial fibrillation, history of cancer of the prostate, treated with radiation therapy, hyperlipidemia, severe COPD, sleep apnea with Trilogy machine at home, peripheral neuropathy, osteoarthritis, chronic pain, permanent pacemaker. PAST SURGICAL HISTORY: Includes dual chamber pacemaker. 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 His pacemaker was placed in 11/2015. He also has had prostate cancer and radiation treatment. FAMILY HISTORY: Reviewed. Mother , reason not known. SOCIAL HISTORY: Past history of smoking. No history of alcoholism or drug abuse. ALLERGIES: None known any. MEDICATIONS: Reviewed and reconciled. PHYSICAL EXAMINATION: VITAL SIGNS: Temperature 98.1, pulse 79 per minute, respirations 20 per minute, blood pressure 144/58 mmHg on oxygen by nasal cannula 3 liters on admission, but then changed to BiPAP/CPAP. GENERAL: The patient is alert, oriented, weak, in moderate respiratory distress, on BiPAP. SKIN: Warm and dry. There is no cyanosis. The patient has wounds on the lower extremities with blisters. They are also improving. EYES: Pupils reacting to light. Conjunctivae pale. Sclerae muddy. HENT: Unremarkable. NECK: Supple. JVP normal. No thyromegaly. Trachea midline. LUNGS: Decreased breath sounds bilaterally with occasional coarse breath sounds and rales. CARDIOVASCULAR: S1, S2 irregular. ABDOMEN: Soft, obese, nontender, no guarding, no rigidity. Bowel sounds present. EXTREMITIES: The patient has 1-2+ edema of the lower extremities. Has some venous insufficiency, has some wounds as noted earlier. Has a permanent pacemaker. 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 CENTRAL NERVOUS SYSTEM: Alert and oriented. Chronically ill and short of breath. LABORATORY FINDINGS: As noted earlier. IMPRESSION: 1. 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 2. Acute on chronic systolic and diastolic congestive heart failure. 3. Diabetes mellitus type 2 with neuropathy. 4. Chronic kidney disease stage 3. 5. Hypertension. 6. Obstructive sleep apnea, on Trilogy at home. 7. Severe chronic obstructive pulmonary disease. 8. Electrolyte imbalance. 9. Atrial fibrillation. 10. Physical deconditioning. 11. Osteoarthritis. 12. Obesity. 13. Peripheral neuropathy. 14. History of permanent pacemaker. 15. History of cancer of the prostate, treated with radiation therapy. 16. Hyperlipidemia. 17. Noncompliance with diet. 18. 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 PLAN: 1. Start BiPAP. Continue oxygen by nasal cannula as needed. Resume home medications. Consult Dr. Florence for pulmonary evaluation and management. COVID-19 test has also been performed and is pending. Clinically, the patient appears to have more congestive heart failure rather than pneumonia. 2. Acute on chronic systolic and diastolic congestive heart failure with ejection fraction of 30% on previous echocardiogram. Consult Dr. Leiva for Cardiology evaluation and management. The patient had recently seen Dr. Cain who is his regular diesel service technician. He had recommended hospitalization, but the patient did not want to be admitted. The patient may need IV dobutamine as diuretics including Bumex and Zaroxolyn, may not be mobilizing fluid enough. He does have chronic venous insufficiency, so some of the swelling may be because of that. 3. Diabetes mellitus type 2 with neuropathy. 4. Obstructive sleep apnea. 5. Severe chronic obstructive pulmonary disease. 6. Physical deconditioning. 7. Atrial fibrillation. 8. Continue to monitor the protime. Continue Coumadin. 9. Diabetes mellitus type 2 with hyperglycemia. Continue to monitor blood sugar. For details, please refer to the orders. Prognosis of this patient is very poor. REYNA SHAW MD DR: BRITNI/shad JOB#: [id number] / [id number]
[2019-11-23 13:40] LABS: BASE EXCESS ABG 11 mmol/L (-3-3); HCO3 ABG 43 mmol/L (21-28); PO2 ABG 59 mmHg (65-108); SAT O2 ABG 87 % (92-99)
[2019-11-23 13:43] LABS: FIO2 ABG 40; PCO2 ABG 129 mmHg (35-46)
--- NOTE | 2019-11-23 14:34 | PDOC2 ---
CONSULT Date of Consult Date of Consult DATE: 11/23/19 TIME: 14:28 Reason for Consult Reason for Consult: Heart failure Referring Physician Referring Physician: Dr. Lyon Identification/Chief Complaint Chief Complaint Shortness of breath Source Source: Chart review, Patient History of Present Illness Reason for Visit: The patient is an 89-year-old male with a history of systolic heart failure as well as severe COPD for which he is on home oxygen. He was brought to the emergency room last night for progressive increasing shortness of breath over a week. Additionally his CPAP machine apparently malfunctioned. Initial EKG showed no acute ischemic changes. Patient was treated with diuretics and has been feeling mildly improved overnight. He is followed by the pulmonary service as well as Dr. Cain. He is he is being tested for COVID-19. Past Medical History Cardiovascular: AFIB, CAD, CHF, Hyperlipidemia, Valve insufficiency Pulmonary: COPD, Other CENTRAL NERVOUS SYSTEM: Periperal neuropathy Heme/Onc: Cancer Musculoskeletal: Osteoarthritis Renal/: Chronic renal insuff, Prostate Ca. Endocrine: Diabetes Past Surgical History Past Surgical History: Pacemaker, Other (Left upper extremity amputation, procedure for prostate cancer) Family History Family History: Heart Disease Social History No ALCOHOL: none Drugs: None Lives: with Family Current Problem List Problem List Problems Medical Problems: (1) Chronic respiratory failure with hypoxia Status: Acute (2) COPD (chronic obstructive pulmonary disease) Status: Acute Current Medications Current Medications Current Medications Ondansetron HCl (Zofran) 4 mg PRN Q8HRS PRN IV NAUSEA/VOMITING 1ST CHOICE; Start 11/23/19 at 01:45; Stop 11/24/19 at 01:44 Acetaminophen (Tylenol) 650 mg PRN Q4HRS PRN PO FEVER > 100.3'F; Start 11/23/19 at 01:45; Stop 11/24/19 at 01:44 Lorazepam (Ativan Inj) 0.5 mg 1X PRN PRN IV ANXIETY / AGITATION Last administered on 11/23/19at 05:21; Start 11/23/19 at 05:00 Lorazepam (Ativan Inj) 0.5 mg PRN BID PRN IV ANXIETY / AGITATION; Start 11/23/19 at 05:45 Dextrose (Dextrose 50%-Water Syringe) 12.5 gm PRN Q15MIN PRN IV SEE COMMENTS; Start 11/23/19 at 06:00 Albuterol Sulfate (Ventolin Neb Soln) 2.5 mg PRN Q4HRS PRN NEB wheezing; Start 11/23/19 at 06:15 Amlodipine Besylate (Norvasc) 5 mg DAILY PO Last administered on 11/23/19 08:53; Start 11/23/19 at 09:00 Bumetanide (Bumex) 1 mg DAILY PO Last administered on 11/23/19 08:52; Start 11/23/19 at 09:00 Carvedilol (Coreg) 3.125 mg BIDWMEALS PO Last administered on 11/23/19 08:54; Start 11/23/19 at 08:00 Ferrous Sulfate (Feosol) 325 mg DAILY PO Last administered on 11/23/19 08:52; Start 11/23/19 at 09:00 Glipizide (Glucotrol) 5 mg BIDAC PO Last administered on 11/23/19at 08:51; Start 11/23/19 at 07:30 Albuterol/ Ipratropium (Duoneb) 3 ml Q4HRS W/A IH ; Start 11/23/19 at 07:00 Montelukast Sodium (Singulair) 10 mg HS PO ; Start 11/23/19 at 21:00 Simvastatin (Zocor) 10 mg QHS PO ; Start 11/23/19 at 21:00 Warfarin Sodium (Coumadin) 2 mg DAILY PO ; Start 11/23/19 at 09:00; Stop 11/23/19 at 11:48; Status DC Metolazone (Zaroxolyn) 5 mg DAILY PO Last administered on 11/23/19at 08:53; Start 11/23/19 at 09:00 Multivitamins (Thera M Plus) 1 tab DAILY PO Last administered on 11/23/19 08:52; Start 11/23/19 at 09:00 Linagliptin (Tradjenta) 5 mg DAILY PO Last administered on 11/23/19 08:52; Start 11/23/19 at 09:00 Multivitamins/ Minerals (I-Maxim) 1 tab DAILY PO Last administered on 11/23/19 08:53; Start 11/23/19 at 09:00 Warfarin Sodium (Coumadin Per Physician) 1 each PRN DAILY PRN MC SEE COMMENTS; Start 11/23/19 at 07:15 Warfarin Sodium (Coumadin) 2 mg DAILY16 PO ; Start 11/23/19 at 16:00 Insulin Human Lispro (HumaLOG) 0-8 UNITS BIDBFRMEAL SQ ; Start 11/23/19 at 16:30; Status UNV Insulin Human Lispro (HumaLOG) 0-8 UNITS BIDBFRMEAL SQ ; Start 11/23/19 at 16:30 Active Scripts Active Reported Januvia (Sitagliptin Phosphate) 100 Mg Tablet 1 Tab PO DAILY Bumetanide 1 Mg Tablet 1 Tab PO DAILY Warfarin Sodium 2 Mg Tablet 2 Mg PO DAILY Proair Hfa Inhaler (Albuterol Sulfate) 8.5 Gm Hfa.aer.ad 2 Puff IH PRN Q4-6HRS PRN 21 Days Multivitamins (Multivitamin) 1 Each Capsule 1 Cap PO DAILY 30 Days Ferrous Sulfate 325 Mg Tablet 1 Tab PO DAILY Singulair Tablet (Montelukast Sodium) 10 Mg Tablet 10 Mg PO HS Metolazone 5 Mg Tablet 5 Mg PO DAILY Glipizide 5 Mg Tablet 1 Tab PO BIDAC Preservision Areds Softgel (Vit A/Vit C/Vit E/Zinc/Copper) 1 Each Capsule 1 Each PO BID Coreg (Carvedilol) 3.125 Mg Tablet 1 Tab PO BID Duoneb 0.5-3(2.5) Mg/3 Ml (Albuterol/Ipratropium) 3 Ml Ampul.neb 3 Ml IH Q4HRS Amlodipine Besylate 10 Mg Tablet 5 Mg PO DAILY Simvastatin 10 Mg Tablet 1 Tab PO QHS Allergies Allergies: Coded Allergies: No Known Drug Allergies (Unverified , 02/16/15) ROS General: YES: Fatigue Respiratory: YES: Shortness of breath, SOB with excertion Physical Exam Physical Exam Deferred. Vitals VITALS Vital Signs Date Time Temp Pulse Resp B/P (MAP) Pulse Ox O2 Delivery O2 Flow Rate FiO2 11/23/19 11:55 97.2 79 20 137/64 (88) 97 97.2 11/23/19 11:13 BiPAP/CPAP 11/23/19 08:00 3.0 Labs Labs Laboratory Tests Test 11/22/19 23:45 11/23/19 02:47 11/23/19 08:05 11/23/19 09:05 White Blood Count 8.8 x10^3/uL (4.0-11.0) 7.7 x10^3/uL (4.0-11.0) Red Blood Count 3.27 x10^6/uL (4.30-5.70) 3.28 x10^6/uL (4.30-5.70) Hemoglobin 8.7 g/dL (13.0-17.5) 8.6 g/dL (13.0-17.5) Hematocrit 27.7 % (39.0-53.0) 28.0 % (39.0-53.0) Mean Corpuscular Volume 85 fL (79-100) 85 fL (79-100) Mean Corpuscular Hemoglobin 27 pg (25-35) 26 pg (25-35) Mean Corpuscular Hemoglobin Concent 32 g/dL (31-37) 31 g/dL (31-37) Red Cell Distribution Width 16.0 % (11.5-14.5) 16.3 % (11.5-14.5) Platelet Count 143 x10^3/uL (140-400) 134 x10^3/uL (140-400) Neutrophils (%) (Auto) 75 % (31-73) 79 % (31-73) Lymphocytes (%) (Auto) 17 % (24-48) 14 % (24-48) Monocytes (%) (Auto) 6 % (0-9) 6 % (0-9) Eosinophils (%) (Auto) 1 % (0-3) 0 % (0-3) Basophils (%) (Auto) 1 % (0-3) 1 % (0-3) Neutrophils # (Auto) 6.7 x10^3/uL (1.8-7.7) 6.1 x10^3/uL (1.8-7.7) Lymphocytes # (Auto) 1.5 x10^3/uL (1.0-4.8) 1.1 x10^3/uL (1.0-4.8) Monocytes # (Auto) 0.6 x10^3/uL (0.0-1.1) 0.4 x10^3/uL (0.0-1.1) Eosinophils # (Auto) 0.1 x10^3/uL (0.0-0.7) 0.0 x10^3/uL (0.0-0.7) Basophils # (Auto) 0.0 x10^3/uL (0.0-0.2) 0.0 x10^3/uL (0.0-0.2) Sodium Level 143 mmol/L (136-145) 146 mmol/L (136-145) Potassium Level 4.8 mmol/L (3.5-5.1) 4.7 mmol/L (3.5-5.1) Chloride Level 105 mmol/L (98-107) 105 mmol/L (98-107) Carbon Dioxide Level 38 mmol/L (21-32) 41 mmol/L (21-32) Anion Gap 0 (6-14) 0 (6-14) Blood Urea Nitrogen 85 mg/dL (8-26) 86 mg/dL (8-26) Creatinine 1.6 mg/dL (0.7-1.3) 1.5 mg/dL (0.7-1.3) Estimated GFR (Cockcroft-Gault) 41.1 44.3 Glucose Level 196 mg/dL (70-99) 196 mg/dL (70-99) Calcium Level 8.0 mg/dL (8.5-10.1) 7.8 mg/dL (8.5-10.1) Troponin I Quantitative < 0.017 ng/mL (0.000-0.055) NJ-Ixk-F-Type Natriuretic Peptide 4306 pg/mL (0-449) Bedside Venous pH 7.24 (7.32-7.42) Bedside Venous pCO2 90 mmHg (41-51) Bedside Venous pO2 125 mmHg (20-40) Venous Blood HCO3 39 mmol/L (24-28) POC Venous O2 Saturation (Alina) 98 % Bedside FiO2 21.0 Glucose (Fingerstick) 193 mg/dL (70-99) Prothrombin Time 18.2 SEC (11.7-14.0) Prothromb Time International Ratio 1.5 (0.8-1.1) BUN/Creatinine Ratio 57 (6-20) Magnesium Level 3.0 mg/dL (1.8-2.4) Total Bilirubin 0.3 mg/dL (0.2-1.0) Aspartate Amino Transf (AST/SGOT) 24 U/L (15-37) Alanine Aminotransferase (ALT/SGPT) 49 U/L (16-63) Alkaline Phosphatase 104 U/L (46-116) Total Protein 7.2 g/dL (6.4-8.2) Albumin 3.2 g/dL (3.4-5.0) Albumin/Globulin Ratio 0.8 (1.0-1.7) Test 11/23/19 10:16 11/23/19 13:24 Glucose (Fingerstick) 180 mg/dL (70-99) O2 Saturation 87 % (92-99) Arterial Blood pH 7.14 (7.35-7.45) Arterial Blood pCO2 at Patient Temp 129 mmHg (35-46) Arterial Blood pO2 at Patient Temp 59 mmHg (65-108) Arterial Blood HCO3 43 mmol/L (21-28) Arterial Blood Base Excess 11 mmol/L (-3-3) FiO2 40 Laboratory Tests Test 11/22/19 23:45 11/23/19 02:47 11/23/19 08:05 11/23/19 09:05 White Blood Count 8.8 x10^3/uL (4.0-11.0) 7.7 x10^3/uL (4.0-11.0) Red Blood Count 3.27 x10^6/uL (4.30-5.70) 3.28 x10^6/uL (4.30-5.70) Hemoglobin 8.7 g/dL (13.0-17.5) 8.6 g/dL (13.0-17.5) Hematocrit 27.7 % (39.0-53.0) 28.0 % (39.0-53.0) Mean Corpuscular Volume 85 fL (79-100) 85 fL (79-100) Mean Corpuscular Hemoglobin 27 pg (25-35) 26 pg (25-35) Mean Corpuscular Hemoglobin Concent 32 g/dL (31-37) 31 g/dL (31-37) Red Cell Distribution Width 16.0 % (11.5-14.5) 16.3 % (11.5-14.5) Platelet Count 143 x10^3/uL (140-400) 134 x10^3/uL (140-400) Neutrophils (%) (Auto) 75 % (31-73) 79 % (31-73) Lymphocytes (%) (Auto) 17 % (24-48) 14 % (24-48) Monocytes (%) (Auto) 6 % (0-9) 6 % (0-9) Eosinophils (%) (Auto) 1 % (0-3) 0 % (0-3) Basophils (%) (Auto) 1 % (0-3) 1 % (0-3) Neutrophils # (Auto) 6.7 x10^3/uL (1.8-7.7) 6.1 x10^3/uL (1.8-7.7) Lymphocytes # (Auto) 1.5 x10^3/uL (1.0-4.8) 1.1 x10^3/uL (1.0-4.8) Monocytes # (Auto) 0.6 x10^3/uL (0.0-1.1) 0.4 x10^3/uL (0.0-1.1) Eosinophils # (Auto) 0.1 x10^3/uL (0.0-0.7) 0.0 x10^3/uL (0.0-0.7) Basophils # (Auto) 0.0 x10^3/uL (0.0-0.2) 0.0 x10^3/uL (0.0-0.2) Sodium Level 143 mmol/L (136-145) 146 mmol/L (136-145) Potassium Level 4.8 mmol/L (3.5-5.1) 4.7 mmol/L (3.5-5.1) Chloride Level 105 mmol/L (98-107) 105 mmol/L (98-107) Carbon Dioxide Level 38 mmol/L (21-32) 41 mmol/L (21-32) Anion Gap 0 (6-14) 0 (6-14) Blood Urea Nitrogen 85 mg/dL (8-26) 86 mg/dL (8-26) Creatinine 1.6 mg/dL (0.7-1.3) 1.5 mg/dL (0.7-1.3) Estimated GFR (Cockcroft-Gault) 41.1 44.3 Glucose Level 196 mg/dL (70-99) 196 mg/dL (70-99) Calcium Level 8.0 mg/dL (8.5-10.1) 7.8 mg/dL (8.5-10.1) Troponin I Quantitative < 0.017 ng/mL (0.000-0.055) PD-Ycu-G-Type Natriuretic Peptide 4306 pg/mL (0-449) Bedside Venous pH 7.24 (7.32-7.42) Bedside Venous pCO2 90 mmHg (41-51) Bedside Venous pO2 125 mmHg (20-40) Venous Blood HCO3 39 mmol/L (24-28) POC Venous O2 Saturation (Alina) 98 % Bedside FiO2 21.0 Glucose (Fingerstick) 193 mg/dL (70-99) Prothrombin Time 18.2 SEC (11.7-14.0) Prothromb Time International Ratio 1.5 (0.8-1.1) BUN/Creatinine Ratio 57 (6-20) Magnesium Level 3.0 mg/dL (1.8-2.4) Total Bilirubin 0.3 mg/dL (0.2-1.0) Aspartate Amino Transf (AST/SGOT) 24 U/L (15-37) Alanine Aminotransferase (ALT/SGPT) 49 U/L (16-63) Alkaline Phosphatase 104 U/L (46-116) Total Protein 7.2 g/dL (6.4-8.2) Albumin 3.2 g/dL (3.4-5.0) Albumin/Globulin Ratio 0.8 (1.0-1.7) Test 11/23/19 10:16 11/23/19 13:24 Glucose (Fingerstick) 180 mg/dL (70-99) O2 Saturation 87 % (92-99) Arterial Blood pH 7.14 (7.35-7.45) Arterial Blood pCO2 at Patient Temp 129 mmHg (35-46) Arterial Blood pO2 at Patient Temp 59 mmHg (65-108) Arterial Blood HCO3 43 mmol/L (21-28) Arterial Blood Base Excess 11 mmol/L (-3-3) FiO2 40 Assessment/Plan Assessment/Plan 1. Systolic heart failure. Ejection fraction of 30%. We will continue diuresis with monitoring of the patient's creatinine. We will check old records. 2. Acute exacerbation of COPD. Continue oxygen and pulmonary medications. 3. Chronic kidney disease. Continuing to monitor lab. 4. Atrial fibrillation. History. Rate controlled. 5. Hypertension. Continue to monitor. 6. Hyperlipidemia. Check lab. Continue to monitor. 7. Diabetes mellitus. As per the primary service. Thank you for allowing us to participate in the care of your patient. CAROLYNE SIEGEL MD Nov 23, 2019 14:34
[2019-11-23 15:23] VITALS: BP 139/89
--- NOTE | 2019-11-23 15:46 | PDOC ---
PULMONARY PROGRESS NOTES DATE: 11/23/19 TIME: 15:45 Vitals Vital Signs Date Time Temp Pulse Resp B/P (MAP) Pulse Ox O2 Delivery O2 Flow Rate FiO2 11/23/19 15:29 93 BiPAP/CPAP 11/23/19 15:23 97.1 68 18 139/89 (106) 97.1 11/23/19 08:00 3.0 General: Alert, Oriented X4 HEENT: Other Lungs: Crackles Cardiovascular: S1, S2 Abdomen: Soft Extremities: Other Labs Laboratory Tests Test 11/22/19 23:45 11/23/19 02:47 11/23/19 08:05 11/23/19 09:05 White Blood Count 8.8 x10^3/uL (4.0-11.0) 7.7 x10^3/uL (4.0-11.0) Red Blood Count 3.27 x10^6/uL (4.30-5.70) 3.28 x10^6/uL (4.30-5.70) Hemoglobin 8.7 g/dL (13.0-17.5) 8.6 g/dL (13.0-17.5) Hematocrit 27.7 % (39.0-53.0) 28.0 % (39.0-53.0) Mean Corpuscular Volume 85 fL (79-100) 85 fL (79-100) Mean Corpuscular Hemoglobin 27 pg (25-35) 26 pg (25-35) Mean Corpuscular Hemoglobin Concent 32 g/dL (31-37) 31 g/dL (31-37) Red Cell Distribution Width 16.0 % (11.5-14.5) 16.3 % (11.5-14.5) Platelet Count 143 x10^3/uL (140-400) 134 x10^3/uL (140-400) Neutrophils (%) (Auto) 75 % (31-73) 79 % (31-73) Lymphocytes (%) (Auto) 17 % (24-48) 14 % (24-48) Monocytes (%) (Auto) 6 % (0-9) 6 % (0-9) Eosinophils (%) (Auto) 1 % (0-3) 0 % (0-3) Basophils (%) (Auto) 1 % (0-3) 1 % (0-3) Neutrophils # (Auto) 6.7 x10^3/uL (1.8-7.7) 6.1 x10^3/uL (1.8-7.7) Lymphocytes # (Auto) 1.5 x10^3/uL (1.0-4.8) 1.1 x10^3/uL (1.0-4.8) Monocytes # (Auto) 0.6 x10^3/uL (0.0-1.1) 0.4 x10^3/uL (0.0-1.1) Eosinophils # (Auto) 0.1 x10^3/uL (0.0-0.7) 0.0 x10^3/uL (0.0-0.7) Basophils # (Auto) 0.0 x10^3/uL (0.0-0.2) 0.0 x10^3/uL (0.0-0.2) Sodium Level 143 mmol/L (136-145) 146 mmol/L (136-145) Potassium Level 4.8 mmol/L (3.5-5.1) 4.7 mmol/L (3.5-5.1) Chloride Level 105 mmol/L (98-107) 105 mmol/L (98-107) Carbon Dioxide Level 38 mmol/L (21-32) 41 mmol/L (21-32) Anion Gap 0 (6-14) 0 (6-14) Blood Urea Nitrogen 85 mg/dL (8-26) 86 mg/dL (8-26) Creatinine 1.6 mg/dL (0.7-1.3) 1.5 mg/dL (0.7-1.3) Estimated GFR (Cockcroft-Gault) 41.1 44.3 Glucose Level 196 mg/dL (70-99) 196 mg/dL (70-99) Calcium Level 8.0 mg/dL (8.5-10.1) 7.8 mg/dL (8.5-10.1) Troponin I Quantitative < 0.017 ng/mL (0.000-0.055) VA-Dzc-J-Type Natriuretic Peptide 4306 pg/mL (0-449) Bedside Venous pH 7.24 (7.32-7.42) Bedside Venous pCO2 90 mmHg (41-51) Bedside Venous pO2 125 mmHg (20-40) Venous Blood HCO3 39 mmol/L (24-28) POC Venous O2 Saturation (Alina) 98 % Bedside FiO2 21.0 Glucose (Fingerstick) 193 mg/dL (70-99) Prothrombin Time 18.2 SEC (11.7-14.0) Prothromb Time International Ratio 1.5 (0.8-1.1) BUN/Creatinine Ratio 57 (6-20) Magnesium Level 3.0 mg/dL (1.8-2.4) Total Bilirubin 0.3 mg/dL (0.2-1.0) Aspartate Amino Transf (AST/SGOT) 24 U/L (15-37) Alanine Aminotransferase (ALT/SGPT) 49 U/L (16-63) Alkaline Phosphatase 104 U/L (46-116) Total Protein 7.2 g/dL (6.4-8.2) Albumin 3.2 g/dL (3.4-5.0) Albumin/Globulin Ratio 0.8 (1.0-1.7) Test 11/23/19 10:16 11/23/19 13:24 Glucose (Fingerstick) 180 mg/dL (70-99) O2 Saturation 87 % (92-99) Arterial Blood pH 7.14 (7.35-7.45) Arterial Blood pCO2 at Patient Temp 129 mmHg (35-46) Arterial Blood pO2 at Patient Temp 59 mmHg (65-108) Arterial Blood HCO3 43 mmol/L (21-28) Arterial Blood Base Excess 11 mmol/L (-3-3) FiO2 40 Laboratory Tests Test 11/22/19 23:45 11/23/19 02:47 11/23/19 08:05 11/23/19 09:05 White Blood Count 8.8 x10^3/uL (4.0-11.0) 7.7 x10^3/uL (4.0-11.0) Red Blood Count 3.27 x10^6/uL (4.30-5.70) 3.28 x10^6/uL (4.30-5.70) Hemoglobin 8.7 g/dL (13.0-17.5) 8.6 g/dL (13.0-17.5) Hematocrit 27.7 % (39.0-53.0) 28.0 % (39.0-53.0) Mean Corpuscular Volume 85 fL (79-100) 85 fL (79-100) Mean Corpuscular Hemoglobin 27 pg (25-35) 26 pg (25-35) Mean Corpuscular Hemoglobin Concent 32 g/dL (31-37) 31 g/dL (31-37) Red Cell Distribution Width 16.0 % (11.5-14.5) 16.3 % (11.5-14.5) Platelet Count 143 x10^3/uL (140-400) 134 x10^3/uL (140-400) Neutrophils (%) (Auto) 75 % (31-73) 79 % (31-73) Lymphocytes (%) (Auto) 17 % (24-48) 14 % (24-48) Monocytes (%) (Auto) 6 % (0-9) 6 % (0-9) Eosinophils (%) (Auto) 1 % (0-3) 0 % (0-3) Basophils (%) (Auto) 1 % (0-3) 1 % (0-3) Neutrophils # (Auto) 6.7 x10^3/uL (1.8-7.7) 6.1 x10^3/uL (1.8-7.7) Lymphocytes # (Auto) 1.5 x10^3/uL (1.0-4.8) 1.1 x10^3/uL (1.0-4.8) Monocytes # (Auto) 0.6 x10^3/uL (0.0-1.1) 0.4 x10^3/uL (0.0-1.1) Eosinophils # (Auto) 0.1 x10^3/uL (0.0-0.7) 0.0 x10^3/uL (0.0-0.7) Basophils # (Auto) 0.0 x10^3/uL (0.0-0.2) 0.0 x10^3/uL (0.0-0.2) Sodium Level 143 mmol/L (136-145) 146 mmol/L (136-145) Potassium Level 4.8 mmol/L (3.5-5.1) 4.7 mmol/L (3.5-5.1) Chloride Level 105 mmol/L (98-107) 105 mmol/L (98-107) Carbon Dioxide Level 38 mmol/L (21-32) 41 mmol/L (21-32) Anion Gap 0 (6-14) 0 (6-14) Blood Urea Nitrogen 85 mg/dL (8-26) 86 mg/dL (8-26) Creatinine 1.6 mg/dL (0.7-1.3) 1.5 mg/dL (0.7-1.3) Estimated GFR (Cockcroft-Gault) 41.1 44.3 Glucose Level 196 mg/dL (70-99) 196 mg/dL (70-99) Calcium Level 8.0 mg/dL (8.5-10.1) 7.8 mg/dL (8.5-10.1) Troponin I Quantitative < 0.017 ng/mL (0.000-0.055) RZ-Wpv-P-Type Natriuretic Peptide 4306 pg/mL (0-449) Bedside Venous pH 7.24 (7.32-7.42) Bedside Venous pCO2 90 mmHg (41-51) Bedside Venous pO2 125 mmHg (20-40) Venous Blood HCO3 39 mmol/L (24-28) POC Venous O2 Saturation (Alina) 98 % Bedside FiO2 21.0 Glucose (Fingerstick) 193 mg/dL (70-99) Prothrombin Time 18.2 SEC (11.7-14.0) Prothromb Time International Ratio 1.5 (0.8-1.1) BUN/Creatinine Ratio 57 (6-20) Magnesium Level 3.0 mg/dL (1.8-2.4) Total Bilirubin 0.3 mg/dL (0.2-1.0) Aspartate Amino Transf (AST/SGOT) 24 U/L (15-37) Alanine Aminotransferase (ALT/SGPT) 49 U/L (16-63) Alkaline Phosphatase 104 U/L (46-116) Total Protein 7.2 g/dL (6.4-8.2) Albumin 3.2 g/dL (3.4-5.0) Albumin/Globulin Ratio 0.8 (1.0-1.7) Test 11/23/19 10:16 11/23/19 13:24 Glucose (Fingerstick) 180 mg/dL (70-99) O2 Saturation 87 % (92-99) Arterial Blood pH 7.14 (7.35-7.45) Arterial Blood pCO2 at Patient Temp 129 mmHg (35-46) Arterial Blood pO2 at Patient Temp 59 mmHg (65-108) Arterial Blood HCO3 43 mmol/L (21-28) Arterial Blood Base Excess 11 mmol/L (-3-3) FiO2 40 Medications Active Scripts Medications Dose Route/Sig Max Daily Dose Days Date Category Januvia (Sitagliptin Phosphate) 100 Mg Tablet 1 Tab PO DAILY 11/23/19 Reported Bumetanide 1 Mg Tablet 1 Tab PO DAILY 11/23/19 Reported Warfarin Sodium 2 Mg Tablet 2 Mg PO DAILY 11/23/19 Reported Proair Hfa Inhaler (Albuterol Sulfate) 8.5 Gm Hfa.aer.ad 2 Puff IH PRN Q4-6HRS PRN 21 06/06/19 Reported Multivitamins (Multivitamin) 1 Each Capsule 1 Cap PO DAILY 30 06/06/19 Reported Ferrous Sulfate 325 Mg Tablet 1 Tab PO DAILY 06/06/19 Reported Singulair Tablet (Montelukast Sodium) 10 Mg Tablet 10 Mg PO HS 06/06/19 Reported Metolazone 5 Mg Tablet 5 Mg PO DAILY 06/06/19 Reported Glipizide 5 Mg Tablet 1 Tab PO BIDAC 06/06/19 Reported Preservision Areds Softgel (Vit A/Vit C/Vit E/Zinc/Copper) 1 Each Capsule 1 Each PO BID 05/26/17 Reported Coreg (Carvedilol) 3.125 Mg Tablet 1 Tab PO BID 12/08/15 Reported Duoneb 0.5-3(2.5) Mg/3 Ml (Albuterol/Ipratropium) 3 Ml Ampul.neb 3 Ml IH Q4HRS 02/13/15 Reported Amlodipine Besylate 10 Mg Tablet 5 Mg PO DAILY 01/21/15 Reported Simvastatin 10 Mg Tablet 1 Tab PO QHS 01/21/15 Reported Impression . Full note dictated, patient seen earlier this morning, I spoke with RT on several occasions. We will repeat arterial blood gas, may need to transfer to the ICU JORGE BILLS MD Nov 23, 2019 15:46
[2019-11-23] MEDS: WARFARIN 2 MG TABLET. PO SCH (16:21)
[2019-11-23] MEDS: INSULIN LISPRO 300 UNITS/3 ML VIAL. SQ SCH (16:21)
[2019-11-23] MEDS ORDERED: INSULIN LISPRO 300 UNITS/3 ML VIAL. SQ SCH (16:30)
[2019-11-23 17:36] LABS: BASE EXCESS ABG 12 mmol/L (-3-3); HCO3 ABG 43 mmol/L (21-28); PO2 ABG 68 mmHg (65-108); SAT O2 ABG 92 % (92-99)
[2019-11-23 17:39] LABS: FIO2 ABG 40; PCO2 ABG 123 mmHg (35-46)
[2019-11-23 19:00] VITALS: BP 115/56
[2019-11-23] MEDS ORDERED: SIMVASTATIN 10 MG TABLET PO SCH (21:00)
--- NOTE | 2019-11-23 21:09 | CONS ---
DATE OF CONSULTATION: 11/23/2019 ATTENDING PHYSICIAN: Linda Lyon MD CONSULTING PHYSICIAN: Jorge Bills MD REASON FOR CONSULTATION: The patient is seen in pulmonary consultation at the request of Dr. Lyon for [id number] hypoxemic hypercapnic respiratory failure. Arterial blood gas upon presentation revealed a pH of 7.24, PaCO2 of 90, pO2 of 125. HISTORY OF PRESENT ILLNESS: The patient is an 89-year-old with a history of chronic respiratory failure, normally on 3.5-4 liters of oxygen supplementation; obstructive sleep apnea, using Trilogy at home. According to the patient, his Trilogy was malfunctioning. Presented with increasing shortness of breath approximately 1 week. No fever. No COVID-19 exposures. He lives at home by himself. He denies hemoptysis. He normally utilizes albuterol and nebulized treatments. No chest pain or pressure. He presented with the above. His arterial blood gas revealed the above numbers. He was placed on BiPAP. I saw him, I took him off the BiPAP. He was awake, alert, following commands. He did not complain of any chest pain or pressure. I reviewed his chest x-ray, which does not reveal any significant changes. He has a stable right basilar opacity, stable bilateral effusions and some cardiomegaly. PAST MEDICAL HISTORY: Chronic respiratory failure, normally on 3.5-4 liters of oxygen; obstructive sleep apnea, using CPAP. He is now on Trilogy at home. He had a previous history of chronic heart failure, previous hospital-acquired pneumonia, chronic AFib, hyperlipidemia, type 2 diabetes, peripheral neuropathy, prostate cancer, chronic kidney disease, peripheral vascular disease. 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 There is also history of pacemaker implantation, dual chamber pacemaker. FAMILY HISTORY: Noncontributory in this age group. SOCIAL HISTORY: He quit tobacco 20 years ago. ALLERGIES: No known drug allergies. REVIEW OF SYSTEMS: As indicated above, otherwise other systems could not be adequately reviewed. PHYSICAL EXAMINATION: GENERAL: The patient was awake, alert, following commands, in no significant respiratory distress. HEENT: Eyes, the sclerae were nonicteric. NECK: Showed jugular venous distention was not elevated. No lymphadenopathy. CHEST: Full expansion. LUNGS: Poor flow with no wheezes. CARDIOVASCULAR: Regular rate and rhythm with S1, S2, no S3. ABDOMEN: Soft, nontender, nondistended. EXTREMITIES: No clubbing, cyanosis or edema. LABORATORY DATA: Electrolytes were noted. BUN and creatinine were elevated. White count was normal. Hemoglobin and hematocrit chronically low. INR was 1.5. Chest x-ray as indicated above. IMPRESSION: 1. 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 2. Acute on chronic diastolic heart failure. 3. Type 2 diabetes with neuropathy. 4. Chronic kidney disease. 5. Hypertension. 6. Obstructive sleep apnea. 7. Severe chronic obstructive pulmonary disease. 8. Electrolyte abnormalities. 9. Peripheral neuropathy. 10. History of prostate cancer, treated with radiation. PLAN: 1. As indicated above, the patient was started on BiPAP. His repeat arterial blood gas actually has worsened. I spoke with RT. We will decrease his FiO2, increase his BiPAP to provide a tidal volume of approximately 500 and repeat arterial blood gas. 2. Recommend IV diuresis. 3. SARS-CoV-2 testing pending. 4. Steroids. 5. If no improvement, we will transfer to the Intensive Care Unit, noted the patient is a full code including intubation. 6. Diabetes management per PCP. I do appreciate the privilege in sharing in the patient's care. JORGE BILLS MD DR: SONIA/shad JOB#: [id number] / [id number]
[2019-11-23] MEDS: MONTELUKAST SODIUM 10 MG TABLET. PO SCH (21:45)
[2019-11-23 23:00] VITALS: BP 137/98
[2019-11-24 03:00] VITALS: BP 149/65
[2019-11-24 04:38] LABS: BASO % 0 % (0-3); EOS % 1 % (0-3); HEMATOCRIT 28.6 % (39.0-53.0); HEMOGLOBIN 8.7 g/dL (13.0-17.5); LYMPH # 0.9 x10^3/uL (1.0-4.8); LYMPH % 12 % (24-48); MEAN CORPUSCULAR HEMOGLOBIN 26 pg (25-35); MEAN CORPUSCULAR HGB CONC 31 g/dL (31-37); MEAN CORPUSCULAR VOLUME 86 fL (79-100); MONO # 0.6 x10^3/uL (0.0-1.1); MONO % 8 % (0-9); NEUT # 5.6 x10^3/uL (1.8-7.7); NEUT % 79 % (31-73); PLATELET COUNT 130 x10^3/uL (140-400); RED BLOOD COUNT 3.34 x10^6/uL (4.30-5.70); RED CELL DISTRIBUTION WIDTH 16.2 % (11.5-14.5); WHITE BLOOD COUNT 7.1 x10^3/uL (4.0-11.0)
[2019-11-24 04:57] LABS: CALCIUM 8.5 mg/dL (8.5-10.1); CREATININE 1.5 mg/dL (0.7-1.3); GFR 44.3
[2019-11-24] MEDS: IPRATRPIUM/ALBUTEROL 0.5/2.5MG 3 ML NEBU. IH SCH ×2 (06:00→07:30)
[2019-11-24 07:18] VITALS: BP 203/87
[2019-11-24] MEDS: MULTIVITAMIN I-VITE TABLET. PO SCH (07:42)
[2019-11-24] MEDS: BUMETANIDE 1 MG TABLET. PO SCH (07:42)
[2019-11-24] MEDS: FERROUS SULFATE 325 MG TABLET. PO SCH (07:42)
[2019-11-24] MEDS: LINAGLIPTIN 5 MG TABLET PO SCH (07:42)
[2019-11-24] MEDS: MULTIVITAMIN with MINERAL TABLET. PO SCH (07:42)
[2019-11-24] MEDS: metOLazone 2.5 MG TABLET PO SCH (07:43)
[2019-11-24] MEDS: CARVEDILOL 3.125 MG TABLET. PO SCH ×2 (07:43→17:21)
[2019-11-24] MEDS: glipiZIDE 5 MG TABLET PO SCH ×2 (07:43→17:21)
[2019-11-24] MEDS: amLODIPine BESYLATE 5 MG TABLET PO SCH (07:43)
[2019-11-24] MEDS: INSULIN LISPRO 300 UNITS/3 ML VIAL. SQ SCH ×2 (09:16→17:22)
[2019-11-24 09:24] LABS: BASE EXCESS COOX 7 mmol/L (-3-3); HCO3 COOX 39 mmol/L (21-28); METHEMOGLOBIN 0.3 % (0.0-1.9); OXYHEMOGLOBIN 93.7 %; PO2 COOX 83 mmHg (65-108); SAT O2 COOX 95 % (92-99)
--- NOTE | 2019-11-24 09:52 | PDOC ---
PROGRESS NOTES- Subjective Subjective Patient's condition worsened yesterday evening and his pH decreased to 7.16 on the blood gas. He became more lethargic and poorly responsive with IV Ativan. BiPAP was adjusted. Family decided to not do chest compressions and intubation but continue other treatment. Today he is much more responsive and appropriate. He denies any chest pains or palpitations. Objective Vitals/I&O Vital Signs Date Time Temp Pulse Resp B/P (MAP) Pulse Ox O2 Delivery O2 Flow Rate FiO2 11/24/19 07:45 Bi-pap 3.0 11/24/19 07:43 67 206/88 11/24/19 07:18 98.5 22 94 98.5 I & O 11/23/19 11/23/19 11/24/19 15:00 23:00 07:00 Intake Total 200 ml 300 ml 0 ml Output Total 500 ml 500 ml Balance 200 ml -200 ml -500 ml Physical Exam Physical Exam GENERAL: The patient is more responsive, weak, in moderate respiratory distress, on BiPAP. SKIN: Warm and dry. There is no cyanosis. The patient has wounds on the lower extremities with blisters. They are also improving. HENT: Unremarkable. NECK: Supple. LUNGS: Decreased breath sounds bilaterally with occasional coarse breath sounds and rales. CARDIOVASCULAR: S1, S2 irregular. ABDOMEN: Soft, obese, nontender, EXTREMITIES: The patient has 1-2+ edema of the lower extremities. Has some venous insufficiency, has some wounds as noted earlier. Has a permanent pacemaker. 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 CENTRAL NERVOUS SYSTEM: More responsive. Labs Laboratory Tests Test 11/23/19 10:16 11/23/19 13:24 11/23/19 16:09 11/23/19 17:26 Glucose (Fingerstick) 180 mg/dL (70-99) H 193 mg/dL (70-99) H O2 Saturation 87 % (92-99) L 92 % (92-99) Arterial Blood pH 7.14 (7.35-7.45) *L 7.16 (7.35-7.45) *L Arterial Blood pCO2 at Patient Temp 129 mmHg (35-46) *H 123 mmHg (35-46) *H Arterial Blood pO2 at Patient Temp 59 mmHg (65-108) L 68 mmHg (65-108) Arterial Blood HCO3 43 mmol/L (21-28) H 43 mmol/L (21-28) H Arterial Blood Base Excess 11 mmol/L (-3-3) H 12 mmol/L (-3-3) H FiO2 40 40 Test 11/24/19 04:00 11/24/19 06:59 White Blood Count 7.1 x10^3/uL (4.0-11.0) Red Blood Count 3.34 x10^6/uL (4.30-5.70) L Hemoglobin 8.7 g/dL (13.0-17.5) L Hematocrit 28.6 % (39.0-53.0) L Mean Corpuscular Volume 86 fL (79-100) Mean Corpuscular Hemoglobin 26 pg (25-35) Mean Corpuscular Hemoglobin Concent 31 g/dL (31-37) Red Cell Distribution Width 16.2 % (11.5-14.5) H Platelet Count 130 x10^3/uL (140-400) L Neutrophils (%) (Auto) 79 % (31-73) H Lymphocytes (%) (Auto) 12 % (24-48) L Monocytes (%) (Auto) 8 % (0-9) Eosinophils (%) (Auto) 1 % (0-3) Basophils (%) (Auto) 0 % (0-3) Neutrophils # (Auto) 5.6 x10^3/uL (1.8-7.7) Lymphocytes # (Auto) 0.9 x10^3/uL (1.0-4.8) L Monocytes # (Auto) 0.6 x10^3/uL (0.0-1.1) Eosinophils # (Auto) 0.0 x10^3/uL (0.0-0.7) Basophils # (Auto) 0.0 x10^3/uL (0.0-0.2) Sodium Level 145 mmol/L (136-145) Potassium Level 5.0 mmol/L (3.5-5.1) Chloride Level 105 mmol/L (98-107) Carbon Dioxide Level 40 mmol/L (21-32) H Anion Gap 0 (6-14) L Blood Urea Nitrogen 88 mg/dL (8-26) H Creatinine 1.5 mg/dL (0.7-1.3) H Estimated GFR (Cockcroft-Gault) 44.3 Glucose Level 124 mg/dL (70-99) H Calcium Level 8.5 mg/dL (8.5-10.1) Glucose (Fingerstick) 156 mg/dL (70-99) H Laboratory Tests 11/24/19 04:00 Laboratory Tests 11/24/19 04:00 Meds Current Medications Medications (Trade) Dose Ordered Sig/Isaiah Route PRN Reason Start Time Stop Time Status Last Admin Dose Admin Montelukast Sodium (Singulair) 10 mg HS PO 11/23/19 21:00 11/23/19 21:45 Simvastatin (Zocor) 10 mg QHS PO 11/23/19 21:00 11/23/19 21:45 Warfarin Sodium (Coumadin) 2 mg DAILY16 PO 11/23/19 16:00 11/23/19 16:21 Insulin Human Lispro (HumaLOG) 0-8 UNITS BIDBFRMEAL SQ 11/23/19 16:30 11/24/19 09:16 Assessment Assessment 1. 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 2. Acute on chronic systolic and diastolic congestive heart failure. 3. Diabetes mellitus type 2 with neuropathy. 4. Chronic kidney disease stage 3. 5. Hypertension. 6. Obstructive sleep apnea, on Trilogy at home. 7. Severe chronic obstructive pulmonary disease. 8. Electrolyte imbalance. 9. Atrial fibrillation. 10. Physical deconditioning. 11. Osteoarthritis. 12. Obesity. 13. Peripheral neuropathy. 14. History of permanent pacemaker. 15. History of cancer of the prostate, treated with radiation therapy. 16. Hyperlipidemia. 17. Noncompliance with diet. 18. 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 PLAN: 1. Acute on chronic , hypoxic and hypercapnic respiratory failure- start B iPAP. Continue oxygen by nasal cannula as needed. Resume home medications. Consult Dr. Florence for pulmonary evaluation and management. He is much more responsive today but patient told me to continue to take all the steps that are necessary as per my discretion. I will start him on IV steroids, albuterol inhaler and IV antibiotics. Will not use nebulizer until COVID test is reported. COVID-19 test has also been performed and is pending. 2. Acute on chronic systolic and diastolic congestive heart failure with ejection fraction of 30% on previous echocardiogram. Consult Dr. Leiva for Cardiology evaluation and management. The patient had recently seen Dr. Cain who is his regular sports equipment repairer. He had recommended hospitalization, but the patient did not want to be admitted. The patient may need IV dobutamine as diuretics including Bumex and Zaroxolyn, may not be mobilizing fluid enough. He does have chronic venous insufficiency, so some of the swelling may be because of that. 3. Diabetes mellitus type 2 with neuropathy. 4. Obstructive sleep apnea. 5. Severe chronic obstructive pulmonary disease. 6. Physical deconditioning. 7. Atrial fibrillation. 8. Continue to monitor the protime. Continue Coumadin. 9. Diabetes mellitus type 2 with hyperglycemia. Continue to monitor blood sugar. For details, please refer to the orders. Prognosis of this patient is very poor. Plan Plan For more details regarding further plans, please refer to the orders. Justifications for Admission Other Justification REYNA SHAW MD Nov 24, 2019 09:52
[2019-11-24 09:55] LABS: PCO2 COOX 116 mmHg (35-46)
[2019-11-24] MEDS ORDERED: hydrALAZINE 20 MG/ML VIAL. IVP PRN (10:00)
[2019-11-24] MEDS ORDERED: AZITHRMYCN 500MG IVPB FOR OMNI 250 ML IV SCH (11:00)
[2019-11-24] MEDS ORDERED: ALBUTEROL SULFATE 8GM INHALER. INH PRN (11:00)
[2019-11-24 11:22] VITALS: BP 168/70
[2019-11-24] MEDS: AZITHROMYCIN 500 MG in IV NORMAL SALINE 250ML 250 ML IV SCH (11:46)
[2019-11-24] MEDS: methylPREDNISolone SOD SUCC PF 40 MG/ML VIAL. IV SCH (11:48)
[2019-11-24] MEDS: cefTRIAXone IV Push 1 GM VIAL. IVP SCH (11:54)
--- NOTE | 2019-11-24 12:34 | PDOC ---
PULMONARY PROGRESS NOTES DATE: 11/24/19 TIME: 12:30 Subjective More awake today ABG not improved, placed back on BIPAP Vitals Vital Signs Date Time Temp Pulse Resp B/P (MAP) Pulse Ox O2 Delivery O2 Flow Rate FiO2 11/24/19 12:24 93 BiPAP/CPAP 11/24/19 11:22 97.4 66 24 168/70 (102) 97.4 11/24/19 07:45 3.0 ROS: No Nausea, No Chest Pain, No Abdominal Pain, No Increase Cough General: Alert, Oriented X4 HEENT: Other Lungs: Crackles Cardiovascular: S1, S2 Abdomen: Soft Extremities: Other Skin: Warm, Dry Labs Laboratory Tests Test 11/22/19 23:45 11/23/19 02:47 11/23/19 08:05 11/23/19 09:05 White Blood Count 8.8 x10^3/uL (4.0-11.0) 7.7 x10^3/uL (4.0-11.0) Red Blood Count 3.27 x10^6/uL (4.30-5.70) 3.28 x10^6/uL (4.30-5.70) Hemoglobin 8.7 g/dL (13.0-17.5) 8.6 g/dL (13.0-17.5) Hematocrit 27.7 % (39.0-53.0) 28.0 % (39.0-53.0) Mean Corpuscular Volume 85 fL (79-100) 85 fL (79-100) Mean Corpuscular Hemoglobin 27 pg (25-35) 26 pg (25-35) Mean Corpuscular Hemoglobin Concent 32 g/dL (31-37) 31 g/dL (31-37) Red Cell Distribution Width 16.0 % (11.5-14.5) 16.3 % (11.5-14.5) Platelet Count 143 x10^3/uL (140-400) 134 x10^3/uL (140-400) Neutrophils (%) (Auto) 75 % (31-73) 79 % (31-73) Lymphocytes (%) (Auto) 17 % (24-48) 14 % (24-48) Monocytes (%) (Auto) 6 % (0-9) 6 % (0-9) Eosinophils (%) (Auto) 1 % (0-3) 0 % (0-3) Basophils (%) (Auto) 1 % (0-3) 1 % (0-3) Neutrophils # (Auto) 6.7 x10^3/uL (1.8-7.7) 6.1 x10^3/uL (1.8-7.7) Lymphocytes # (Auto) 1.5 x10^3/uL (1.0-4.8) 1.1 x10^3/uL (1.0-4.8) Monocytes # (Auto) 0.6 x10^3/uL (0.0-1.1) 0.4 x10^3/uL (0.0-1.1) Eosinophils # (Auto) 0.1 x10^3/uL (0.0-0.7) 0.0 x10^3/uL (0.0-0.7) Basophils # (Auto) 0.0 x10^3/uL (0.0-0.2) 0.0 x10^3/uL (0.0-0.2) Sodium Level 143 mmol/L (136-145) 146 mmol/L (136-145) Potassium Level 4.8 mmol/L (3.5-5.1) 4.7 mmol/L (3.5-5.1) Chloride Level 105 mmol/L (98-107) 105 mmol/L (98-107) Carbon Dioxide Level 38 mmol/L (21-32) 41 mmol/L (21-32) Anion Gap 0 (6-14) 0 (6-14) Blood Urea Nitrogen 85 mg/dL (8-26) 86 mg/dL (8-26) Creatinine 1.6 mg/dL (0.7-1.3) 1.5 mg/dL (0.7-1.3) Estimated GFR (Cockcroft-Gault) 41.1 44.3 Glucose Level 196 mg/dL (70-99) 196 mg/dL (70-99) Calcium Level 8.0 mg/dL (8.5-10.1) 7.8 mg/dL (8.5-10.1) Troponin I Quantitative < 0.017 ng/mL (0.000-0.055) [id number]-Type Natriuretic Peptide 4306 pg/mL (0-449) Bedside Venous pH 7.24 (7.32-7.42) Bedside Venous pCO2 90 mmHg (41-51) Bedside Venous pO2 125 mmHg (20-40) Venous Blood HCO3 39 mmol/L (24-28) POC Venous O2 Saturation (Alina) 98 % Bedside FiO2 21.0 Glucose (Fingerstick) 193 mg/dL (70-99) Prothrombin Time 18.2 SEC (11.7-14.0) Prothromb Time International Ratio 1.5 (0.8-1.1) BUN/Creatinine Ratio 57 (6-20) Magnesium Level 3.0 mg/dL (1.8-2.4) Total Bilirubin 0.3 mg/dL (0.2-1.0) Aspartate Amino Transf (AST/SGOT) 24 U/L (15-37) Alanine Aminotransferase (ALT/SGPT) 49 U/L (16-63) Alkaline Phosphatase 104 U/L (46-116) Total Protein 7.2 g/dL (6.4-8.2) Albumin 3.2 g/dL (3.4-5.0) Albumin/Globulin Ratio 0.8 (1.0-1.7) Test 11/23/19 10:16 11/23/19 13:24 11/23/19 16:09 11/23/19 17:26 Glucose (Fingerstick) 180 mg/dL (70-99) 193 mg/dL (70-99) O2 Saturation 87 % (92-99) 92 % (92-99) Arterial Blood pH 7.14 (7.35-7.45) 7.16 (7.35-7.45) Arterial Blood pCO2 at Patient Temp 129 mmHg (35-46) 123 mmHg (35-46) Arterial Blood pO2 at Patient Temp 59 mmHg (65-108) 68 mmHg (65-108) Arterial Blood HCO3 43 mmol/L (21-28) 43 mmol/L (21-28) Arterial Blood Base Excess 11 mmol/L (-3-3) 12 mmol/L (-3-3) FiO2 40 40 Test 11/24/19 04:00 11/24/19 06:59 11/24/19 09:10 11/24/19 10:07 White Blood Count 7.1 x10^3/uL (4.0-11.0) Red Blood Count 3.34 x10^6/uL (4.30-5.70) Hemoglobin 8.7 g/dL (13.0-17.5) Hematocrit 28.6 % (39.0-53.0) Mean Corpuscular Volume 86 fL (79-100) Mean Corpuscular Hemoglobin 26 pg (25-35) Mean Corpuscular Hemoglobin Concent 31 g/dL (31-37) Red Cell Distribution Width 16.2 % (11.5-14.5) Platelet Count 130 x10^3/uL (140-400) Neutrophils (%) (Auto) 79 % (31-73) Lymphocytes (%) (Auto) 12 % (24-48) Monocytes (%) (Auto) 8 % (0-9) Eosinophils (%) (Auto) 1 % (0-3) Basophils (%) (Auto) 0 % (0-3) Neutrophils # (Auto) 5.6 x10^3/uL (1.8-7.7) Lymphocytes # (Auto) 0.9 x10^3/uL (1.0-4.8) Monocytes # (Auto) 0.6 x10^3/uL (0.0-1.1) Eosinophils # (Auto) 0.0 x10^3/uL (0.0-0.7) Basophils # (Auto) 0.0 x10^3/uL (0.0-0.2) Sodium Level 145 mmol/L (136-145) Potassium Level 5.0 mmol/L (3.5-5.1) Chloride Level 105 mmol/L (98-107) Carbon Dioxide Level 40 mmol/L (21-32) Anion Gap 0 (6-14) Blood Urea Nitrogen 88 mg/dL (8-26) Creatinine 1.5 mg/dL (0.7-1.3) Estimated GFR (Cockcroft-Gault) 44.3 Glucose Level 124 mg/dL (70-99) Calcium Level 8.5 mg/dL (8.5-10.1) Glucose (Fingerstick) 156 mg/dL (70-99) 195 mg/dL (70-99) O2 Saturation 95 % (92-99) Arterial Blood pH 7.14 (7.35-7.45) Arterial Blood pCO2 at Patient Temp 116 mmHg (35-46) Arterial Blood pO2 at Patient Temp 83 mmHg (65-108) Arterial Blood HCO3 39 mmol/L (21-28) Arterial Blood Base Excess 7 mmol/L (-3-3) Oxyhemoglobin 93.7 % Methemoglobin 0.3 % (0.0-1.9) Carbon Monoxide, Quantitative 0.5 % (0.0-1.9) FiO2 5 lpm il Laboratory Tests Test 11/23/19 13:24 11/23/19 16:09 11/23/19 17:26 11/24/19 04:00 O2 Saturation 87 % (92-99) 92 % (92-99) Arterial Blood pH 7.14 (7.35-7.45) 7.16 (7.35-7.45) Arterial Blood pCO2 at Patient Temp 129 mmHg (35-46) 123 mmHg (35-46) Arterial Blood pO2 at Patient Temp 59 mmHg (65-108) 68 mmHg (65-108) Arterial Blood HCO3 43 mmol/L (21-28) 43 mmol/L (21-28) Arterial Blood Base Excess 11 mmol/L (-3-3) 12 mmol/L (-3-3) FiO2 40 40 Glucose (Fingerstick) 193 mg/dL (70-99) White Blood Count 7.1 x10^3/uL (4.0-11.0) Red Blood Count 3.34 x10^6/uL (4.30-5.70) Hemoglobin 8.7 g/dL (13.0-17.5) Hematocrit 28.6 % (39.0-53.0) Mean Corpuscular Volume 86 fL (79-100) Mean Corpuscular Hemoglobin 26 pg (25-35) Mean Corpuscular Hemoglobin Concent 31 g/dL (31-37) Red Cell Distribution Width 16.2 % (11.5-14.5) Platelet Count 130 x10^3/uL (140-400) Neutrophils (%) (Auto) 79 % (31-73) Lymphocytes (%) (Auto) 12 % (24-48) Monocytes (%) (Auto) 8 % (0-9) Eosinophils (%) (Auto) 1 % (0-3) Basophils (%) (Auto) 0 % (0-3) Neutrophils # (Auto) 5.6 x10^3/uL (1.8-7.7) Lymphocytes # (Auto) 0.9 x10^3/uL (1.0-4.8) Monocytes # (Auto) 0.6 x10^3/uL (0.0-1.1) Eosinophils # (Auto) 0.0 x10^3/uL (0.0-0.7) Basophils # (Auto) 0.0 x10^3/uL (0.0-0.2) Sodium Level 145 mmol/L (136-145) Potassium Level 5.0 mmol/L (3.5-5.1) Chloride Level 105 mmol/L (98-107) Carbon Dioxide Level 40 mmol/L (21-32) Anion Gap 0 (6-14) Blood Urea Nitrogen 88 mg/dL (8-26) Creatinine 1.5 mg/dL (0.7-1.3) Estimated GFR (Cockcroft-Gault) 44.3 Glucose Level 124 mg/dL (70-99) Calcium Level 8.5 mg/dL (8.5-10.1) Test 11/24/19 06:59 11/24/19 09:10 11/24/19 10:07 Glucose (Fingerstick) 156 mg/dL (70-99) 195 mg/dL (70-99) O2 Saturation 95 % (92-99) Arterial Blood pH 7.14 (7.35-7.45) Arterial Blood pCO2 at Patient Temp 116 mmHg (35-46) Arterial Blood pO2 at Patient Temp 83 mmHg (65-108) Arterial Blood HCO3 39 mmol/L (21-28) Arterial Blood Base Excess 7 mmol/L (-3-3) Oxyhemoglobin 93.7 % Methemoglobin 0.3 % (0.0-1.9) Carbon Monoxide, Quantitative 0.5 % (0.0-1.9) FiO2 5 lpm nc Medications Active Scripts Medications Dose Route/Sig Max Daily Dose Days Date Category Januvia (Sitagliptin Phosphate) 100 Mg Tablet 1 Tab PO DAILY 11/23/19 Reported Bumetanide 1 Mg Tablet 1 Tab PO DAILY 11/23/19 Reported Warfarin Sodium 2 Mg Tablet 2 Mg PO DAILY 11/23/19 Reported Proair Hfa Inhaler (Albuterol Sulfate) 8.5 Gm Hfa.aer.ad 2 Puff IH PRN Q4-6HRS PRN 21 06/06/19 Reported Multivitamins (Multivitamin) 1 Each Capsule 1 Cap PO DAILY 30 06/06/19 Reported Ferrous Sulfate 325 Mg Tablet 1 Tab PO DAILY 06/06/19 Reported Singulair Tablet (Montelukast Sodium) 10 Mg Tablet 10 Mg PO HS 06/06/19 Reported Metolazone 5 Mg Tablet 5 Mg PO DAILY 06/06/19 Reported Glipizide 5 Mg Tablet 1 Tab PO BIDAC 06/06/19 Reported Preservision Areds Softgel (Vit A/Vit C/Vit E/Zinc/Copper) 1 Each Capsule 1 Each PO BID 05/26/17 Reported Coreg (Carvedilol) 3.125 Mg Tablet 1 Tab PO BID 12/08/15 Reported Duoneb 0.5-3(2.5) Mg/3 Ml (Albuterol/Ipratropium) 3 Ml Ampul.neb 3 Ml IH Q4HRS 02/13/15 Reported Amlodipine Besylate 10 Mg Tablet 5 Mg PO DAILY 01/21/15 Reported Simvastatin 10 Mg Tablet 1 Tab PO QHS 01/21/15 Reported Comments CXR IMPRESSION: 1. Stable right basilar opacities. 2. Stable small bilateral pleural effusions. Impression . IMPRESSION: 1. Acute on chronic hypoxemic hypercapnic respiratory failure, multifactorial.-- ongoing 2. Acute on chronic diastolic heart failure. 3. Type 2 diabetes with neuropathy. 4. Chronic kidney disease. 5. Hypertension. 6. Obstructive sleep apnea. 7. Severe chronic obstructive pulmonary disease. 8. Electrolyte abnormalities. 9. Peripheral neuropathy. 10. History of prostate cancer, treated with radiation. 11 SARS-CoV-2 negative Plan . PLAN: During my evaluation, I took the patient off of BiPAP placed him on nasal cannula he looks much better than yesterday, will continue nasal cannula oxygen and BiPAP PRN and nightly Continue BIPAP, pt. is now DNR-- continue current BIPAP 26/8 rate 26 and 40% Continue diuresis per cardiology Await covid-19 testing, negative, initiate nebulized treatment Continue steroids DVT/GI PPX D/W RN Pt. is DNR JORGE BILLS MD Nov 24, 2019 12:34
[2019-11-24] MEDS ORDERED: ALBUTEROL SULFATE 8GM INHALER. INH SCH (14:00)
--- NOTE | 2019-11-24 14:30 | PDOC ---
PROGRESS NOTES Date of Service DATE: 11/24/19 TIME: 14:28 Subjective Subjective Patient seen and evaluated Objective Objective Vital Signs Date Time Temp Pulse Resp B/P (MAP) Pulse Ox O2 Delivery O2 Flow Rate FiO2 11/24/19 12:24 93 BiPAP/CPAP 11/24/19 11:22 97.4 66 24 168/70 (102) 97.4 11/24/19 07:45 3.0 Intake and Output 11/24/19 07:00 Intake Total 500 ml Output Total 1000 ml Balance -500 ml Intake Oral 500 ml Output Urine Total 1000 ml Physical Exam Abdomen: Normal bowel sounds Heart: Regular rate General: mild distress Lungs: Other (Decreased breath sounds) Assessment Assessment Problems Medical Problems: (1) Chronic respiratory failure with hypoxia Status: Acute (2) COPD (chronic obstructive pulmonary disease) Status: Acute 1. Systolic heart failure. Ejection fraction of 30%. We will continue diuresis with monitoring of the patient's creatinine. Patient has been made a DNR status. 2. Acute exacerbation of COPD. Continue oxygen and pulmonary medications. COVID testing negative 3. Chronic kidney disease. 4. Atrial fibrillation. History. Rate controlled. 5. Hypertension. Continue to monitor. 6. Hyperlipidemia. Check lab. Continue to monitor. 7. Diabetes mellitus. As per the primary service. Comment Review of Relevant I have reviewed the following items danika (where applicable) has been applied. Labs Laboratory Tests Test 11/22/19 23:45 11/23/19 02:19 11/23/19 02:47 11/23/19 08:05 White Blood Count 8.8 x10^3/uL (4.0-11.0) Red Blood Count 3.27 x10^6/uL (4.30-5.70) Hemoglobin 8.7 g/dL (13.0-17.5) Hematocrit 27.7 % (39.0-53.0) Mean Corpuscular Volume 85 fL (79-100) Mean Corpuscular Hemoglobin 27 pg (25-35) Mean Corpuscular Hemoglobin Concent 32 g/dL (31-37) Red Cell Distribution Width 16.0 % (11.5-14.5) Platelet Count 143 x10^3/uL (140-400) Neutrophils (%) (Auto) 75 % (31-73) Lymphocytes (%) (Auto) 17 % (24-48) Monocytes (%) (Auto) 6 % (0-9) Eosinophils (%) (Auto) 1 % (0-3) Basophils (%) (Auto) 1 % (0-3) Neutrophils # (Auto) 6.7 x10^3/uL (1.8-7.7) Lymphocytes # (Auto) 1.5 x10^3/uL (1.0-4.8) Monocytes # (Auto) 0.6 x10^3/uL (0.0-1.1) Eosinophils # (Auto) 0.1 x10^3/uL (0.0-0.7) Basophils # (Auto) 0.0 x10^3/uL (0.0-0.2) Sodium Level 143 mmol/L (136-145) Potassium Level 4.8 mmol/L (3.5-5.1) Chloride Level 105 mmol/L (98-107) Carbon Dioxide Level 38 mmol/L (21-32) Anion Gap 0 (6-14) Blood Urea Nitrogen 85 mg/dL (8-26) Creatinine 1.6 mg/dL (0.7-1.3) Estimated GFR (Cockcroft-Gault) 41.1 Glucose Level 196 mg/dL (70-99) Calcium Level 8.0 mg/dL (8.5-10.1) Troponin I Quantitative < 0.017 ng/mL (0.000-0.055) KA-Keh-S-Type Natriuretic Peptide 4306 pg/mL (0-449) Coronavirus (PCR) Not detected (Not Detected) Bedside Venous pH 7.24 (7.32-7.42) Bedside Venous pCO2 90 mmHg (41-51) Bedside Venous pO2 125 mmHg (20-40) Venous Blood HCO3 39 mmol/L (24-28) POC Venous O2 Saturation (Alina) 98 % Bedside FiO2 21.0 Glucose (Fingerstick) 193 mg/dL (70-99) Test 11/23/19 09:05 11/23/19 10:16 11/23/19 13:24 11/23/19 16:09 White Blood Count 7.7 x10^3/uL (4.0-11.0) Red Blood Count 3.28 x10^6/uL (4.30-5.70) Hemoglobin 8.6 g/dL (13.0-17.5) Hematocrit 28.0 % (39.0-53.0) Mean Corpuscular Volume 85 fL (79-100) Mean Corpuscular Hemoglobin 26 pg (25-35) Mean Corpuscular Hemoglobin Concent 31 g/dL (31-37) Red Cell Distribution Width 16.3 % (11.5-14.5) Platelet Count 134 x10^3/uL (140-400) Neutrophils (%) (Auto) 79 % (31-73) Lymphocytes (%) (Auto) 14 % (24-48) Monocytes (%) (Auto) 6 % (0-9) Eosinophils (%) (Auto) 0 % (0-3) Basophils (%) (Auto) 1 % (0-3) Neutrophils # (Auto) 6.1 x10^3/uL (1.8-7.7) Lymphocytes # (Auto) 1.1 x10^3/uL (1.0-4.8) Monocytes # (Auto) 0.4 x10^3/uL (0.0-1.1) Eosinophils # (Auto) 0.0 x10^3/uL (0.0-0.7) Basophils # (Auto) 0.0 x10^3/uL (0.0-0.2) Prothrombin Time 18.2 SEC (11.7-14.0) Prothromb Time International Ratio 1.5 (0.8-1.1) Sodium Level 146 mmol/L (136-145) Potassium Level 4.7 mmol/L (3.5-5.1) Chloride Level 105 mmol/L (98-107) Carbon Dioxide Level 41 mmol/L (21-32) Anion Gap 0 (6-14) Blood Urea Nitrogen 86 mg/dL (8-26) Creatinine 1.5 mg/dL (0.7-1.3) Estimated GFR (Cockcroft-Gault) 44.3 BUN/Creatinine Ratio 57 (6-20) Glucose Level 196 mg/dL (70-99) Calcium Level 7.8 mg/dL (8.5-10.1) Magnesium Level 3.0 mg/dL (1.8-2.4) Total Bilirubin 0.3 mg/dL (0.2-1.0) Aspartate Amino Transf (AST/SGOT) 24 U/L (15-37) Alanine Aminotransferase (ALT/SGPT) 49 U/L (16-63) Alkaline Phosphatase 104 U/L (46-116) Total Protein 7.2 g/dL (6.4-8.2) Albumin 3.2 g/dL (3.4-5.0) Albumin/Globulin Ratio 0.8 (1.0-1.7) Glucose (Fingerstick) 180 mg/dL (70-99) 193 mg/dL (70-99) O2 Saturation 87 % (92-99) Arterial Blood pH 7.14 (7.35-7.45) Arterial Blood pCO2 at Patient Temp 129 mmHg (35-46) Arterial Blood pO2 at Patient Temp 59 mmHg (65-108) Arterial Blood HCO3 43 mmol/L (21-28) Arterial Blood Base Excess 11 mmol/L (-3-3) FiO2 40 Test 11/23/19 17:26 11/24/19 04:00 11/24/19 06:59 11/24/19 09:10 O2 Saturation 92 % (92-99) 95 % (92-99) Arterial Blood pH 7.16 (7.35-7.45) 7.14 (7.35-7.45) Arterial Blood pCO2 at Patient Temp 123 mmHg (35-46) 116 mmHg (35-46) Arterial Blood pO2 at Patient Temp 68 mmHg (65-108) 83 mmHg (65-108) Arterial Blood HCO3 43 mmol/L (21-28) 39 mmol/L (21-28) Arterial Blood Base Excess 12 mmol/L (-3-3) 7 mmol/L (-3-3) FiO2 40 5 lpm nc White Blood Count 7.1 x10^3/uL (4.0-11.0) Red Blood Count 3.34 x10^6/uL (4.30-5.70) Hemoglobin 8.7 g/dL (13.0-17.5) Hematocrit 28.6 % (39.0-53.0) Mean Corpuscular Volume 86 fL (79-100) Mean Corpuscular Hemoglobin 26 pg (25-35) Mean Corpuscular Hemoglobin Concent 31 g/dL (31-37) Red Cell Distribution Width 16.2 % (11.5-14.5) Platelet Count 130 x10^3/uL (140-400) Neutrophils (%) (Auto) 79 % (31-73) Lymphocytes (%) (Auto) 12 % (24-48) Monocytes (%) (Auto) 8 % (0-9) Eosinophils (%) (Auto) 1 % (0-3) Basophils (%) (Auto) 0 % (0-3) Neutrophils # (Auto) 5.6 x10^3/uL (1.8-7.7) Lymphocytes # (Auto) 0.9 x10^3/uL (1.0-4.8) Monocytes # (Auto) 0.6 x10^3/uL (0.0-1.1) Eosinophils # (Auto) 0.0 x10^3/uL (0.0-0.7) Basophils # (Auto) 0.0 x10^3/uL (0.0-0.2) Sodium Level 145 mmol/L (136-145) Potassium Level 5.0 mmol/L (3.5-5.1) Chloride Level 105 mmol/L (98-107) Carbon Dioxide Level 40 mmol/L (21-32) Anion Gap 0 (6-14) Blood Urea Nitrogen 88 mg/dL (8-26) Creatinine 1.5 mg/dL (0.7-1.3) Estimated GFR (Cockcroft-Gault) 44.3 Glucose Level 124 mg/dL (70-99) Calcium Level 8.5 mg/dL (8.5-10.1) Glucose (Fingerstick) 156 mg/dL (70-99) Oxyhemoglobin 93.7 % Methemoglobin 0.3 % (0.0-1.9) Carbon Monoxide, Quantitative 0.5 % (0.0-1.9) Test 11/24/19 10:07 Glucose (Fingerstick) 195 mg/dL (70-99) Laboratory Tests Test 11/23/19 16:09 11/23/19 17:26 11/24/19 04:00 11/24/19 06:59 Glucose (Fingerstick) 193 mg/dL (70-99) 156 mg/dL (70-99) O2 Saturation 92 % (92-99) Arterial Blood pH 7.16 (7.35-7.45) Arterial Blood pCO2 at Patient Temp 123 mmHg (35-46) Arterial Blood pO2 at Patient Temp 68 mmHg (65-108) Arterial Blood HCO3 43 mmol/L (21-28) Arterial Blood Base Excess 12 mmol/L (-3-3) FiO2 40 White Blood Count 7.1 x10^3/uL (4.0-11.0) Red Blood Count 3.34 x10^6/uL (4.30-5.70) Hemoglobin 8.7 g/dL (13.0-17.5) Hematocrit 28.6 % (39.0-53.0) Mean Corpuscular Volume 86 fL (79-100) Mean Corpuscular Hemoglobin 26 pg (25-35) Mean Corpuscular Hemoglobin Concent 31 g/dL (31-37) Red Cell Distribution Width 16.2 % (11.5-14.5) Platelet Count 130 x10^3/uL (140-400) Neutrophils (%) (Auto) 79 % (31-73) Lymphocytes (%) (Auto) 12 % (24-48) Monocytes (%) (Auto) 8 % (0-9) Eosinophils (%) (Auto) 1 % (0-3) Basophils (%) (Auto) 0 % (0-3) Neutrophils # (Auto) 5.6 x10^3/uL (1.8-7.7) Lymphocytes # (Auto) 0.9 x10^3/uL (1.0-4.8) Monocytes # (Auto) 0.6 x10^3/uL (0.0-1.1) Eosinophils # (Auto) 0.0 x10^3/uL (0.0-0.7) Basophils # (Auto) 0.0 x10^3/uL (0.0-0.2) Sodium Level 145 mmol/L (136-145) Potassium Level 5.0 mmol/L (3.5-5.1) Chloride Level 105 mmol/L (98-107) Carbon Dioxide Level 40 mmol/L (21-32) Anion Gap 0 (6-14) Blood Urea Nitrogen 88 mg/dL (8-26) Creatinine 1.5 mg/dL (0.7-1.3) Estimated GFR (Cockcroft-Gault) 44.3 Glucose Level 124 mg/dL (70-99) Calcium Level 8.5 mg/dL (8.5-10.1) Test 11/24/19 09:10 11/24/19 10:07 O2 Saturation 95 % (92-99) Arterial Blood pH 7.14 (7.35-7.45) Arterial Blood pCO2 at Patient Temp 116 mmHg (35-46) Arterial Blood pO2 at Patient Temp 83 mmHg (65-108) Arterial Blood HCO3 39 mmol/L (21-28) Arterial Blood Base Excess 7 mmol/L (-3-3) Oxyhemoglobin 93.7 % Methemoglobin 0.3 % (0.0-1.9) Carbon Monoxide, Quantitative 0.5 % (0.0-1.9) FiO2 5 lpm nc Glucose (Fingerstick) 195 mg/dL (70-99) Medications Current Medications Ondansetron HCl (Zofran) 4 mg PRN Q8HRS PRN IV NAUSEA/VOMITING 1ST CHOICE; Start 11/23/19 at 01:45; Stop 11/24/19 at 01:44; Status DC Acetaminophen (Tylenol) 650 mg PRN Q4HRS PRN PO FEVER > 100.3'F; Start 11/23/19 at 01:45; Stop 11/24/19 at 01:44; Status DC Lorazepam (Ativan Inj) 0.5 mg 1X PRN PRN IV ANXIETY / AGITATION Last administered on 11/23/19at 17:11; Start 11/23/19 at 05:00; Stop 11/24/19 at 11:23; Status DC Lorazepam (Ativan Inj) 0.5 mg PRN BID PRN IV ANXIETY / AGITATION; Start 11/23/19 at 05:45 Dextrose (Dextrose 50%-Water Syringe) 12.5 gm PRN Q15MIN PRN IV SEE COMMENTS; Start 11/23/19 at 06:00 Albuterol Sulfate (Ventolin Neb Soln) 2.5 mg PRN Q4HRS PRN NEB wheezing; Start 11/23/19 at 06:15; Stop 11/24/19 at 10:52; Status DC Amlodipine Besylate (Norvasc) 5 mg DAILY PO Last administered on 11/24/19at 0 7:43; Start 11/23/19 at 09:00 Bumetanide (Bumex) 1 mg DAILY PO Last administered on 11/24/19at 07:42; Start 11/23/19 at 09:00 Carvedilol (Coreg) 3.125 mg BIDWMEALS PO Last administered on 11/24/19 07:43; Start 11/23/19 at 08:00 Ferrous Sulfate (Feosol) 325 mg DAILY PO Last administered on 11/24/19 07:42; Start 11/23/19 at 09:00 Glipizide (Glucotrol) 5 mg BIDAC PO Last administered on 11/24/19 07:43; Start 11/23/19 at 07:30 Albuterol/ Ipratropium (Duoneb) 3 ml Q4HRS W/A IH ; Start 11/23/19 at 07:00; Stop 11/24/19 at 10:52; Status DC Montelukast Sodium (Singulair) 10 mg HS PO Last administered on 11/23/19at 21:45; Start 11/23/19 at 21:00 Simvastatin (Zocor) 10 mg QHS PO Last administered on 11/23/19at 21:45; Start 11/23/19 at 21:00; Stop 11/24/19 at 11:03; Status DC Warfarin Sodium (Coumadin) 2 mg DAILY PO ; Start 11/23/19 at 09:00; Stop 11/23/19 at 11:48; Status DC Metolazone (Zaroxolyn) 5 mg DAILY PO Last administered on 11/24/19 07:43; Start 11/23/19 at 09:00 Multivitamins (Thera M Plus) 1 tab DAILY PO Last administered on 11/24/19 07:42; Start 11/23/19 at 09:00 Linagliptin (Tradjenta) 5 mg DAILY PO Last administered on 11/24/19 07:42; Start 11/23/19 at 09:00 Multivitamins/ Minerals (I-Maxim) 1 tab DAILY PO Last administered on 11/24/19 07:42; Start 11/23/19 at 09:00 Warfarin Sodium (Coumadin Per Physician) 1 each PRN DAILY PRN MC SEE COMMENTS Last administered on 11/23/19at 15:41; Start 11/23/19 at 07:15 Warfarin Sodium (Coumadin) 2 mg DAILY16 PO Last administered on 11/23/19at 16:21; Start 11/23/19 at 16:00 Insulin Human Lispro (HumaLOG) 0-8 UNITS BIDBFRMEAL SQ ; Start 11/23/19 at 16:30; Status UNV Insulin Human Lispro (HumaLOG) 0-8 UNITS BIDBFRMEAL SQ Last administered on 11/24/19at 09:16; Start 11/23/19 at 16:30 Hydralazine HCl (Apresoline Inj) 10 mg PRN Q4HRS PRN IVP FOR SBP > 160 Last administered on 11/24/19at 10:04; Start 11/24/19 at 10:00 Albuterol Sulfate (Ventolin Hfa) 1 puff Q4HRS W/A INH ; Start 11/24/19 at 14:00 Albuterol Sulfate (Ventolin Hfa) 1 puff PRN QID PRN INH SOA Last administered on 11/24/19at 11:46; Start 11/24/19 at 11:00 Methylprednisolone Sodium Succinate (SOLU-Medrol 40MG VIAL) 60 mg DAILY IV Last administered on 11/24/19at 11:48; Start 11/24/19 at 11:00 Ceftriaxone Sodium (Rocephin) 1 gm Q24H IVP Last administered on 11/24/19at 11:54; Start 11/24/19 at 13:00 Azithromycin 250 ml @ 250 mls/hr DAILY IV ; Start 11/24/19 at 11:00; Stop 11/24/19 at 11:14; Status DC Azithromycin 500 mg/Sodium Chloride 250 ml @ 250 mls/hr Q24H IV Last administered on 11/24/19at 11:46; Start 11/24/19 at 13:00 Active Scripts Active Reported Januvia (Sitagliptin Phosphate) 100 Mg Tablet 1 Tab PO DAILY Bumetanide 1 Mg Tablet 1 Tab PO DAILY Warfarin Sodium 2 Mg Tablet 2 Mg PO DAILY Proair Hfa Inhaler (Albuterol Sulfate) 8.5 Gm Hfa.aer.ad 2 Puff IH PRN Q4-6HRS PRN 21 Days Multivitamins (Multivitamin) 1 Each Capsule 1 Cap PO DAILY 30 Days Ferrous Sulfate 325 Mg Tablet 1 Tab PO DAILY Singulair Tablet (Montelukast Sodium) 10 Mg Tablet 10 Mg PO HS Metolazone 5 Mg Tablet 5 Mg PO DAILY Glipizide 5 Mg Tablet 1 Tab PO BIDAC Preservision Areds Softgel (Vit A/Vit C/Vit E/Zinc/Copper) 1 Each Capsule 1 Each PO BID Coreg (Carvedilol) 3.125 Mg Tablet 1 Tab PO BID Duoneb 0.5-3(2.5) Mg/3 Ml (Albuterol/Ipratropium) 3 Ml Ampul.neb 3 Ml IH Q4HRS Amlodipine Besylate 10 Mg Tablet 5 Mg PO DAILY Simvastatin 10 Mg Tablet 1 Tab PO QHS Vitals/I & O Vital Sign - Last 24 Hours 11/23/19 11/23/19 11/23/19 11/23/19 15:23 15:29 16:22 17:22 Temp 97.1 97.1 Pulse 68 68 Resp 18 B/P (MAP) 139/89 (106) 139/89 Pulse Ox 98 93 94 O2 Delivery BiPAP/CPAP BiPAP/CPAP 11/23/19 11/23/19 11/23/19 11/23/19 19:00 20:00 20:45 23:00 Temp 96.9 96.7 96.9 96.7 Pulse 76 67 Resp 23 18 B/P (MAP) 115/56 (75) 137/98 (111) Pulse Ox 93 94 98 O2 Delivery BiPAP/CPAP Bi-pap BiPAP/CPAP BiPAP/CPAP O2 Flow Rate 3.0 3.0 11/24/19 11/24/19 11/24/19 11/24/19 00:45 03:00 05:30 07:18 Temp 96.5 98.5 96.5 98.5 Pulse 67 75 Resp 22 22 B/P (MAP) 149/65 (93) 203/87 (125) Pulse Ox 95 97 94 94 O2 Delivery BiPAP/CPAP BiPAP/CPAP BiPAP/CPAP BiPAP/CPAP O2 Flow Rate 3.0 3.0 11/24/19 11/24/19 11/24/19 11/24/19 07:43 07:43 07:45 09:50 Pulse 67 67 B/P (MAP) 206/88 206/88 Pulse Ox 98 O2 Delivery Bi-pap BiPAP/CPAP O2 Flow Rate 3.0 11/24/19 11/24/19 11/24/19 10:04 11:22 12:24 Temp 97.4 97.4 Pulse 67 66 Resp 24 B/P (MAP) 206/88 168/70 (102) Pulse Ox 94 93 O2 Delivery BiPAP/CPAP BiPAP/CPAP Intake and Output 11/23/19 11/23/19 11/24/19 15:00 23:00 07:00 Intake Total 200 ml 300 ml 0 ml Output Total 500 ml 500 ml Balance 200 ml -200 ml -500 ml Justifications for Admission Other Justification CAROLYNE SIEGEL MD Nov 24, 2019 14:30
[2019-11-24 15:21] VITALS: BP 165/72
[2019-11-24] MEDS: IPRATRPIUM/ALBUTEROL 0.5/2.5MG 3 ML NEBU. NEB SCH ×2 (16:06→19:27)
[2019-11-24] MEDS: WARFARIN 2 MG TABLET. PO SCH (17:21)
[2019-11-24] MEDS: MONTELUKAST SODIUM 10 MG TABLET. PO SCH (20:01)
[2019-11-24 23:00] VITALS: BP 166/52
[2019-11-25 03:09] VITALS: BP 139/59
[2019-11-25 05:10] LABS: BASO % 0 % (0-3); EOS % 0 % (0-3); HEMATOCRIT 28.5 % (39.0-53.0); LYMPH # 0.6 x10^3/uL (1.0-4.8); LYMPH % 8 % (24-48); MEAN CORPUSCULAR HEMOGLOBIN 27 pg (25-35); MEAN CORPUSCULAR HGB CONC 32 g/dL (31-37); MEAN CORPUSCULAR VOLUME 84 fL (79-100); MONO # 0.6 x10^3/uL (0.0-1.1); MONO % 8 % (0-9); NEUT # 6.9 x10^3/uL (1.8-7.7); NEUT % 84 % (31-73); PLATELET COUNT 146 x10^3/uL (140-400); RED BLOOD COUNT 3.38 x10^6/uL (4.30-5.70); WHITE BLOOD COUNT 8.1 x10^3/uL (4.0-11.0)
[2019-11-25 05:19] LABS: PROTHROMBIN TIME PATIENT 24.4 SEC (11.7-14.0)
[2019-11-25 05:39] LABS: ALBUMIN 3.1 g/dL (3.4-5.0); ALBUMIN/GLOBULIN RATIO 0.8 (1.0-1.7); CALCIUM 8.4 mg/dL (8.5-10.1); CREATININE 1.5 mg/dL (0.7-1.3); GFR 44.3; POTASSIUM 4.9 mmol/L (3.5-5.1); TOTAL BILIRUBIN 0.2 mg/dL (0.2-1.0)
[2019-11-25 07:00] VITALS: BP 148/67
[2019-11-25] MEDS: IPRATRPIUM/ALBUTEROL 0.5/2.5MG 3 ML NEBU. NEB SCH ×4 (07:10→20:19)
[2019-11-25] MEDS: INSULIN LISPRO 300 UNITS/3 ML VIAL. SQ SCH ×2 (07:30→17:48)
--- NOTE | 2019-11-25 08:55 | PDOC ---
PULMONARY PROGRESS NOTES DATE: 11/25/19 TIME: 08:55 Subjective Patient awake alert off of BiPAP currently on 4 L of oxygen saturation 100% no increasing shortness of breath Vitals Vital Signs Date Time Temp Pulse Resp B/P (MAP) Pulse Ox O2 Delivery O2 Flow Rate FiO2 11/25/19 07:11 94 4.5 11/25/19 07:00 97.8 95 18 148/67 (94) Nasal Cannula 97.8 ROS: No Nausea, No Chest Pain, No Abdominal Pain, No Increase Cough General: Alert Lungs: Clear Cardiovascular: S1, S2 Abdomen: Soft Neuro Exam: Alert Extremities: Other (Previous amputation left shoulder) Skin: Warm, Dry Labs Laboratory Tests Test 11/23/19 09:05 11/23/19 10:16 11/23/19 13:24 11/23/19 16:09 White Blood Count 7.7 x10^3/uL (4.0-11.0) Red Blood Count 3.28 x10^6/uL (4.30-5.70) Hemoglobin 8.6 g/dL (13.0-17.5) Hematocrit 28.0 % (39.0-53.0) Mean Corpuscular Volume 85 fL (79-100) Mean Corpuscular Hemoglobin 26 pg (25-35) Mean Corpuscular Hemoglobin Concent 31 g/dL (31-37) Red Cell Distribution Width 16.3 % (11.5-14.5) Platelet Count 134 x10^3/uL (140-400) Neutrophils (%) (Auto) 79 % (31-73) Lymphocytes (%) (Auto) 14 % (24-48) Monocytes (%) (Auto) 6 % (0-9) Eosinophils (%) (Auto) 0 % (0-3) Basophils (%) (Auto) 1 % (0-3) Neutrophils # (Auto) 6.1 x10^3/uL (1.8-7.7) Lymphocytes # (Auto) 1.1 x10^3/uL (1.0-4.8) Monocytes # (Auto) 0.4 x10^3/uL (0.0-1.1) Eosinophils # (Auto) 0.0 x10^3/uL (0.0-0.7) Basophils # (Auto) 0.0 x10^3/uL (0.0-0.2) Prothrombin Time 18.2 SEC (11.7-14.0) Prothromb Time International Ratio 1.5 (0.8-1.1) Sodium Level 146 mmol/L (136-145) Potassium Level 4.7 mmol/L (3.5-5.1) Chloride Level 105 mmol/L (98-107) Carbon Dioxide Level 41 mmol/L (21-32) Anion Gap 0 (6-14) Blood Urea Nitrogen 86 mg/dL (8-26) Creatinine 1.5 mg/dL (0.7-1.3) Estimated GFR (Cockcroft-Gault) 44.3 BUN/Creatinine Ratio 57 (6-20) Glucose Level 196 mg/dL (70-99) Calcium Level 7.8 mg/dL (8.5-10.1) Magnesium Level 3.0 mg/dL (1.8-2.4) Total Bilirubin 0.3 mg/dL (0.2-1.0) Aspartate Amino Transf (AST/SGOT) 24 U/L (15-37) Alanine Aminotransferase (ALT/SGPT) 49 U/L (16-63) Alkaline Phosphatase 104 U/L (46-116) Total Protein 7.2 g/dL (6.4-8.2) Albumin 3.2 g/dL (3.4-5.0) Albumin/Globulin Ratio 0.8 (1.0-1.7) Glucose (Fingerstick) 180 mg/dL (70-99) 193 mg/dL (70-99) O2 Saturation 87 % (92-99) Arterial Blood pH 7.14 (7.35-7.45) Arterial Blood pCO2 at Patient Temp 129 mmHg (35-46) Arterial Blood pO2 at Patient Temp 59 mmHg (65-108) Arterial Blood HCO3 43 mmol/L (21-28) Arterial Blood Base Excess 11 mmol/L (-3-3) FiO2 40 Test 11/23/19 17:26 11/24/19 04:00 11/24/19 06:59 11/24/19 09:10 O2 Saturation 92 % (92-99) 95 % (92-99) Arterial Blood pH 7.16 (7.35-7.45) 7.14 (7.35-7.45) Arterial Blood pCO2 at Patient Temp 123 mmHg (35-46) 116 mmHg (35-46) Arterial Blood pO2 at Patient Temp 68 mmHg (65-108) 83 mmHg (65-108) Arterial Blood HCO3 43 mmol/L (21-28) 39 mmol/L (21-28) Arterial Blood Base Excess 12 mmol/L (-3-3) 7 mmol/L (-3-3) FiO2 40 5 lpm nc White Blood Count 7.1 x10^3/uL (4.0-11.0) Red Blood Count 3.34 x10^6/uL (4.30-5.70) Hemoglobin 8.7 g/dL (13.0-17.5) Hematocrit 28.6 % (39.0-53.0) Mean Corpuscular Volume 86 fL (79-100) Mean Corpuscular Hemoglobin 26 pg (25-35) Mean Corpuscular Hemoglobin Concent 31 g/dL (31-37) Red Cell Distribution Width 16.2 % (11.5-14.5) Platelet Count 130 x10^3/uL (140-400) Neutrophils (%) (Auto) 79 % (31-73) Lymphocytes (%) (Auto) 12 % (24-48) Monocytes (%) (Auto) 8 % (0-9) Eosinophils (%) (Auto) 1 % (0-3) Basophils (%) (Auto) 0 % (0-3) Neutrophils # (Auto) 5.6 x10^3/uL (1.8-7.7) Lymphocytes # (Auto) 0.9 x10^3/uL (1.0-4.8) Monocytes # (Auto) 0.6 x10^3/uL (0.0-1.1) Eosinophils # (Auto) 0.0 x10^3/uL (0.0-0.7) Basophils # (Auto) 0.0 x10^3/uL (0.0-0.2) Sodium Level 145 mmol/L (136-145) Potassium Level 5.0 mmol/L (3.5-5.1) Chloride Level 105 mmol/L (98-107) Carbon Dioxide Level 40 mmol/L (21-32) Anion Gap 0 (6-14) Blood Urea Nitrogen 88 mg/dL (8-26) Creatinine 1.5 mg/dL (0.7-1.3) Estimated GFR (Cockcroft-Gault) 44.3 Glucose Level 124 mg/dL (70-99) Calcium Level 8.5 mg/dL (8.5-10.1) Glucose (Fingerstick) 156 mg/dL (70-99) Oxyhemoglobin 93.7 % Methemoglobin 0.3 % (0.0-1.9) Carbon Monoxide, Quantitative 0.5 % (0.0-1.9) Test 11/24/19 10:07 11/24/19 16:14 11/24/19 20:53 11/25/19 04:50 Glucose (Fingerstick) 195 mg/dL (70-99) 276 mg/dL (70-99) 255 mg/dL (70-99) White Blood Count 8.1 x10^3/uL (4.0-11.0) Red Blood Count 3.38 x10^6/uL (4.30-5.70) Hemoglobin 9.0 g/dL (13.0-17.5) Hematocrit 28.5 % (39.0-53.0) Mean Corpuscular Volume 84 fL (79-100) Mean Corpuscular Hemoglobin 27 pg (25-35) Mean Corpuscular Hemoglobin Concent 32 g/dL (31-37) Red Cell Distribution Width 16.0 % (11.5-14.5) Platelet Count 146 x10^3/uL (140-400) Neutrophils (%) (Auto) 84 % (31-73) Lymphocytes (%) (Auto) 8 % (24-48) Monocytes (%) (Auto) 8 % (0-9) Eosinophils (%) (Auto) 0 % (0-3) Basophils (%) (Auto) 0 % (0-3) Neutrophils # (Auto) 6.9 x10^3/uL (1.8-7.7) Lymphocytes # (Auto) 0.6 x10^3/uL (1.0-4.8) Monocytes # (Auto) 0.6 x10^3/uL (0.0-1.1) Eosinophils # (Auto) 0.0 x10^3/uL (0.0-0.7) Basophils # (Auto) 0.0 x10^3/uL (0.0-0.2) Prothrombin Time 24.4 SEC (11.7-14.0) Prothromb Time International Ratio 2.2 (0.8-1.1) Sodium Level 143 mmol/L (136-145) Potassium Level 4.9 mmol/L (3.5-5.1) Chloride Level 103 mmol/L (98-107) Carbon Dioxide Level 39 mmol/L (21-32) Anion Gap 1 (6-14) Blood Urea Nitrogen 91 mg/dL (8-26) Creatinine 1.5 mg/dL (0.7-1.3) Estimated GFR (Cockcroft-Gault) 44.3 BUN/Creatinine Ratio 61 (6-20) Glucose Level 140 mg/dL (70-99) Calcium Level 8.4 mg/dL (8.5-10.1) Total Bilirubin 0.2 mg/dL (0.2-1.0) Aspartate Amino Transf (AST/SGOT) 15 U/L (15-37) Alanine Aminotransferase (ALT/SGPT) 40 U/L (16-63) Alkaline Phosphatase 96 U/L (46-116) Total Protein 7.0 g/dL (6.4-8.2) Albumin 3.1 g/dL (3.4-5.0) Albumin/Globulin Ratio 0.8 (1.0-1.7) Test 11/25/19 08:32 Glucose (Fingerstick) 124 mg/dL (70-99) Laboratory Tests Test 11/24/19 09:10 11/24/19 10:07 11/24/19 16:14 11/24/19 20:53 O2 Saturation 95 % (92-99) Arterial Blood pH 7.14 (7.35-7.45) Arterial Blood pCO2 at Patient Temp 116 mmHg (35-46) Arterial Blood pO2 at Patient Temp 83 mmHg (65-108) Arterial Blood HCO3 39 mmol/L (21-28) Arterial Blood Base Excess 7 mmol/L (-3-3) Oxyhemoglobin 93.7 % Methemoglobin 0.3 % (0.0-1.9) Carbon Monoxide, Quantitative 0.5 % (0.0-1.9) FiO2 5 lpm nc Glucose (Fingerstick) 195 mg/dL (70-99) 276 mg/dL (70-99) 255 mg/dL (70-99) Test 11/25/19 04:50 11/25/19 08:32 White Blood Count 8.1 x10^3/uL (4.0-11.0) Red Blood Count 3.38 x10^6/uL (4.30-5.70) Hemoglobin 9.0 g/dL (13.0-17.5) Hematocrit 28.5 % (39.0-53.0) Mean Corpuscular Volume 84 fL (79-100) Mean Corpuscular Hemoglobin 27 pg (25-35) Mean Corpuscular Hemoglobin Concent 32 g/dL (31-37) Red Cell Distribution Width 16.0 % (11.5-14.5) Platelet Count 146 x10^3/uL (140-400) Neutrophils (%) (Auto) 84 % (31-73) Lymphocytes (%) (Auto) 8 % (24-48) Monocytes (%) (Auto) 8 % (0-9) Eosinophils (%) (Auto) 0 % (0-3) Basophils (%) (Auto) 0 % (0-3) Neutrophils # (Auto) 6.9 x10^3/uL (1.8-7.7) Lymphocytes # (Auto) 0.6 x10^3/uL (1.0-4.8) Monocytes # (Auto) 0.6 x10^3/uL (0.0-1.1) Eosinophils # (Auto) 0.0 x10^3/uL (0.0-0.7) Basophils # (Auto) 0.0 x10^3/uL (0.0-0.2) Prothrombin Time 24.4 SEC (11.7-14.0) Prothromb Time International Ratio 2.2 (0.8-1.1) Sodium Level 143 mmol/L (136-145) Potassium Level 4.9 mmol/L (3.5-5.1) Chloride Level 103 mmol/L (98-107) Carbon Dioxide Level 39 mmol/L (21-32) Anion Gap 1 (6-14) Blood Urea Nitrogen 91 mg/dL (8-26) Creatinine 1.5 mg/dL (0.7-1.3) Estimated GFR (Cockcroft-Gault) 44.3 BUN/Creatinine Ratio 61 (6-20) Glucose Level 140 mg/dL (70-99) Calcium Level 8.4 mg/dL (8.5-10.1) Total Bilirubin 0.2 mg/dL (0.2-1.0) Aspartate Amino Transf (AST/SGOT) 15 U/L (15-37) Alanine Aminotransferase (ALT/SGPT) 40 U/L (16-63) Alkaline Phosphatase 96 U/L (46-116) Total Protein 7.0 g/dL (6.4-8.2) Albumin 3.1 g/dL (3.4-5.0) Albumin/Globulin Ratio 0.8 (1.0-1.7) Glucose (Fingerstick) 124 mg/dL (70-99) Medications Active Scripts Medications Dose Route/Sig Max Daily Dose Days Date Category Januvia (Sitagliptin Phosphate) 100 Mg Tablet 1 Tab PO DAILY 11/23/19 Reported Bumetanide 1 Mg Tablet 1 Tab PO DAILY 11/23/19 Reported Warfarin Sodium 2 Mg Tablet 2 Mg PO DAILY 11/23/19 Reported Proair Hfa Inhaler (Albuterol Sulfate) 8.5 Gm Hfa.aer.ad 2 Puff IH PRN Q4-6HRS PRN 21 06/06/19 Reported Multivitamins (Multivitamin) 1 Each Capsule 1 Cap PO DAILY 30 06/06/19 Reported Ferrous Sulfate 325 Mg Tablet 1 Tab PO DAILY 06/06/19 Reported Singulair Tablet (Montelukast Sodium) 10 Mg Tablet 10 Mg PO HS 06/06/19 Reported Metolazone 5 Mg Tablet 5 Mg PO DAILY 06/06/19 Reported Glipizide 5 Mg Tablet 1 Tab PO BIDAC 06/06/19 Reported Preservision Areds Softgel (Vit A/Vit C/Vit E/Zinc/Copper) 1 Each Capsule 1 Each PO BID 05/26/17 Reported Coreg (Carvedilol) 3.125 Mg Tablet 1 Tab PO BID 12/08/15 Reported Duoneb 0.5-3(2.5) Mg/3 Ml (Albuterol/Ipratropium) 3 Ml Ampul.neb 3 Ml IH Q4HRS 02/13/15 Reported Amlodipine Besylate 10 Mg Tablet 5 Mg PO DAILY 01/21/15 Reported Simvastatin 10 Mg Tablet 1 Tab PO QHS 01/21/15 Reported Comments CXR IMPRESSION: 1. Stable right basilar opacities. 2. Stable small bilateral pleural effusions. Impression . IMPRESSION: 1. 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 2. Acute on chronic diastolic heart failure. 3. Type 2 diabetes with neuropathy. 4. Chronic kidney disease. 5. Hypertension. 6. Obstructive sleep apnea. 7. Severe chronic obstructive pulmonary disease. 8. Electrolyte abnormalities. 9. Peripheral neuropathy. 10. History of prostate cancer, treated with radiation. 11 SARS-CoV-2 negative Plan . I checked my office notes he is not been in my office since 2017, apparently his trilogy machine is nonfunctional I will have hospital social worker here get in touch with his homecare company I do not think he requires 4 L of oxygen titrate O2 down to saturations close to 90%, I spoke with the nurse Continue BiPAP to see Continue diuresis per cardiology Await covid-19 testing, negative, initiate nebulized treatment Continue steroids DVT/GI PPX D/W RN Pt. is DNR, JORGE BILLS MD Nov 25, 2019 08:55
--- NOTE | 2019-11-25 09:52 | PDOC ---
IM PROGRESS NOTES- Subjective Subjective Patient does not have any chest pains or dizziness. Remains weak and continues to have some dyspnea Objective Vitals/I&O Vital Signs Date Time Temp Pulse Resp B/P (MAP) Pulse Ox O2 Delivery O2 Flow Rate FiO2 11/25/19 07:11 94 4.5 11/25/19 07:00 97.8 95 18 148/67 (94) Nasal Cannula 97.8 I & O 11/24/19 11/24/19 11/25/19 15:00 23:00 07:00 Intake Total 420 ml 300 ml Output Total 350 ml 300 ml 100 ml Balance 70 ml 0 ml -100 ml Physical Exam Physical Exam GENERAL: The patient is more responsive, weak, in moderate respiratory distress, on BiPAP. SKIN: Warm and dry. There is no cyanosis. The patient has wounds on the lower extremities with blisters. They are also improving. HENT: Unremarkable. NECK: Supple. LUNGS: Decreased breath sounds bilaterally with occasional coarse breath sounds and rales. CARDIOVASCULAR: S1, S2 irregular. ABDOMEN: Soft, obese, nontender, EXTREMITIES: The patient has 1-2+ edema of the lower extremities. Has some venous insufficiency, has some wounds as noted earlier. Has a permanent pacemaker. 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 CENTRAL NERVOUS SYSTEM: More responsive. Labs Laboratory Tests Test 11/24/19 10:07 11/24/19 16:14 11/24/19 20:53 11/25/19 04:50 Glucose (Fingerstick) 195 mg/dL (70-99) H 276 mg/dL (70-99) H 255 mg/dL (70-99) H White Blood Count 8.1 x10^3/uL (4.0-11.0) Red Blood Count 3.38 x10^6/uL (4.30-5.70) L Hemoglobin 9.0 g/dL (13.0-17.5) L Hematocrit 28.5 % (39.0-53.0) L Mean Corpuscular Volume 84 fL (79-100) Mean Corpuscular Hemoglobin 27 pg (25-35) Mean Corpuscular Hemoglobin Concent 32 g/dL (31-37) Red Cell Distribution Width 16.0 % (11.5-14.5) H Platelet Count 146 x10^3/uL (140-400) Neutrophils (%) (Auto) 84 % (31-73) H Lymphocytes (%) (Auto) 8 % (24-48) L Monocytes (%) (Auto) 8 % (0-9) Eosinophils (%) (Auto) 0 % (0-3) Basophils (%) (Auto) 0 % (0-3) Neutrophils # (Auto) 6.9 x10^3/uL (1.8-7.7) Lymphocytes # (Auto) 0.6 x10^3/uL (1.0-4.8) L Monocytes # (Auto) 0.6 x10^3/uL (0.0-1.1) Eosinophils # (Auto) 0.0 x10^3/uL (0.0-0.7) Basophils # (Auto) 0.0 x10^3/uL (0.0-0.2) Prothrombin Time 24.4 SEC (11.7-14.0) H Prothrombin Time INR 2.2 (0.8-1.1) H Sodium Level 143 mmol/L (136-145) Potassium Level 4.9 mmol/L (3.5-5.1) Chloride Level 103 mmol/L (98-107) Carbon Dioxide Level 39 mmol/L (21-32) H Anion Gap 1 (6-14) L Blood Urea Nitrogen 91 mg/dL (8-26) H Creatinine 1.5 mg/dL (0.7-1.3) H Estimated GFR (Cockcroft-Gault) 44.3 BUN/Creatinine Ratio 61 (6-20) H Glucose Level 140 mg/dL (70-99) H Calcium Level 8.4 mg/dL (8.5-10.1) L Total Bilirubin 0.2 mg/dL (0.2-1.0) Aspartate Amino Transferase (AST) 15 U/L (15-37) Alanine Aminotransferase (ALT) 40 U/L (16-63) Alkaline Phosphatase 96 U/L (46-116) Total Protein 7.0 g/dL (6.4-8.2) Albumin 3.1 g/dL (3.4-5.0) L Albumin/Globulin Ratio 0.8 (1.0-1.7) L Test 11/25/19 08:32 Glucose (Fingerstick) 124 mg/dL (70-99) H Laboratory Tests 11/25/19 04:50 Laboratory Tests 11/25/19 04:50 Meds Current Medications Medications (Trade) Dose Ordered Sig/Isaiah Route PRN Reason Start Time Stop Time Status Last Admin Dose Admin Hydralazine HCl (Apresoline Inj) 10 mg PRN Q4HRS PRN IVP FOR SBP > 160 11/24/19 10:00 11/24/19 10:04 Albuterol Sulfate (Ventolin Hfa) 1 puff PRN QID PRN INH SOA 11/24/19 11:00 11/24/19 11:46 Methylprednisolone Sodium Succinate (SOLU-Medrol 40MG VIAL) 60 mg DAILY IV 11/24/19 11:00 11/24/19 11:48 Ceftriaxone Sodium (Rocephin) 1 gm Q24H IVP 11/24/19 13:00 11/24/19 11:54 Azithromycin 500 mg/Sodium Chloride 250 ml @ 250 mls/hr Q24H IV 11/24/19 13:00 11/24/19 11:46 Albuterol/ Ipratropium (Duoneb) 3 ml RTQID NEB 11/24/19 16:00 11/25/19 07:10 Assessment Assessment 1. 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 2. Acute on chronic systolic and diastolic congestive heart failure. 3. Diabetes mellitus type 2 with neuropathy. 4. Chronic kidney disease stage 3. 5. Hypertension. 6. Obstructive sleep apnea, on Trilogy at home. 7. Severe chronic obstructive pulmonary disease. 8. Electrolyte imbalance. 9. Atrial fibrillation. 10. Physical deconditioning. 11. Osteoarthritis. 12. Obesity. 13. Peripheral neuropathy. 14. History of permanent pacemaker. 15. History of cancer of the prostate, treated with radiation therapy. 16. Hyperlipidemia. 17. Noncompliance with diet. 18. 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 PLAN: 1. Acute on chronic , hypoxic and hypercapnic respiratory failure- start BiPAP. Continue oxygen by nasal cannula as needed. Resume home medications. Consult Dr. Florence for pulmonary evaluation and management. He is much more responsive today but patient told me to continue to take all the steps that are necessary as per my discretion. I will start him on IV steroids, albuterol inhaler and IV Zithromax and Rocephin Will not use nebulizer until COVID test is reported. COVID-19 test has also been performed and is negative 2. Acute on chronic systolic and diastolic congestive heart failure with ejection fraction of 30% on previous echocardiogram. Consult Dr. Leiva for Cardiology evaluation and management. The patient had recently seen Dr. Cain who is his regular family assessment worker. He had recommended hospitalization, but the patient did not want to be admitted. The patient may need IV dobutamine as diuretics including Bumex and Zaroxolyn, may not be mobilizing fluid enough. He does have chronic venous insufficiency, so some of the swelling may be because of that. 3. Diabetes mellitus type 2 with neuropathy. Not controlled due to steroids. Add Lantus. Continue glipizide and sliding scale insulin. 4. Obstructive sleep apnea. 5. Severe chronic obstructive pulmonary disease. 6. Physical deconditioning. 7. Atrial fibrillation. 8. Continue to monitor the protime. Continue Coumadin. 9. Diabetes mellitus type 2 with hyperglycemia. Continue to monitor blood sugar. 10. Chronic kidney disease stage III . BUN 91, creatinine 1.5. For details, please refer to the orders. Prognosis of this patient is very poor. Plan Plan For more details regarding further plans, please refer to the orders. Justifications for Admission Other Justification REYNA SHAW MD Nov 25, 2019 09:52
[2019-11-25] MEDS: FERROUS SULFATE 325 MG TABLET. PO SCH (10:25)
[2019-11-25] MEDS: MULTIVITAMIN with MINERAL TABLET. PO SCH (10:25)
[2019-11-25] MEDS: BUMETANIDE 1 MG TABLET. PO SCH (10:25)
[2019-11-25] MEDS: MULTIVITAMIN I-VITE TABLET. PO SCH (10:25)
[2019-11-25] MEDS: glipiZIDE 5 MG TABLET PO SCH ×2 (10:26→17:41)
[2019-11-25] MEDS: metOLazone 2.5 MG TABLET PO SCH (10:26)
[2019-11-25] MEDS: CARVEDILOL 3.125 MG TABLET. PO SCH ×2 (10:26→17:41)
[2019-11-25] MEDS: amLODIPine BESYLATE 5 MG TABLET PO SCH (10:27)
[2019-11-25] MEDS: LINAGLIPTIN 5 MG TABLET PO SCH (10:27)
[2019-11-25] MEDS: methylPREDNISolone SOD SUCC PF 40 MG/ML VIAL. IV SCH (10:30)
--- NOTE | 2019-11-25 10:39 | PDOC ---
IM PROGRESS NOTES- Subjective Subjective Patient does not have any chest pains or dizziness. Remains weak and continues to have some dyspnea patient is feeling better, sitting in a chair and alert and responsive. He does have some dyspnea. That is chronic Objective Vitals/I&O Vital Signs Date Time Temp Pulse Resp B/P (MAP) Pulse Ox O2 Delivery O2 Flow Rate FiO2 11/25/19 10:27 95 148/67 11/25/19 07:11 94 4.5 11/25/19 07:00 97.8 18 Nasal Cannula 97.8 I & O 11/24/19 11/24/19 11/25/19 15:00 23:00 07:00 Intake Total 420 ml 300 ml Output Total 350 ml 300 ml 100 ml Balance 70 ml 0 ml -100 ml Physical Exam Physical Exam GENERAL: The patient is more responsive, weak, in moderate respiratory distress, on BiPAP. SKIN: Warm and dry. There is no cyanosis. The patient has wounds on the lower extremities with blisters. They are also improving. HENT: Unremarkable. NECK: Supple. LUNGS: Decreased breath sounds bilaterally with occasional coarse breath sounds and rales. CARDIOVASCULAR: S1, S2 irregular. ABDOMEN: Soft, obese, nontender, EXTREMITIES: The patient has 1-2+ edema of the lower extremities. Has some venous insufficiency, has some wounds as noted earlier. Has a permanent pacemaker. 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 CENTRAL NERVOUS SYSTEM: More responsive. Labs Laboratory Tests Test 11/24/19 16:14 11/24/19 20:53 11/25/19 04:50 11/25/19 08:32 Glucose (Fingerstick) 276 mg/dL (70-99) H 255 mg/dL (70-99) H 124 mg/dL (70-99) H White Blood Count 8.1 x10^3/uL (4.0-11.0) Red Blood Count 3.38 x10^6/uL (4.30-5.70) L Hemoglobin 9.0 g/dL (13.0-17.5) L Hematocrit 28.5 % (39.0-53.0) L Mean Corpuscular Volume 84 fL (79-100) Mean Corpuscular Hemoglobin 27 pg (25-35) Mean Corpuscular Hemoglobin Concent 32 g/dL (31-37) Red Cell Distribution Width 16.0 % (11.5-14.5) H Platelet Count 146 x10^3/uL (140-400) Neutrophils (%) (Auto) 84 % (31-73) H Lymphocytes (%) (Auto) 8 % (24-48) L Monocytes (%) (Auto) 8 % (0-9) Eosinophils (%) (Auto) 0 % (0-3) Basophils (%) (Auto) 0 % (0-3) Neutrophils # (Auto) 6.9 x10^3/uL (1.8-7.7) Lymphocytes # (Auto) 0.6 x10^3/uL (1.0-4.8) L Monocytes # (Auto) 0.6 x10^3/uL (0.0-1.1) Eosinophils # (Auto) 0.0 x10^3/uL (0.0-0.7) Basophils # (Auto) 0.0 x10^3/uL (0.0-0.2) Prothrombin Time 24.4 SEC (11.7-14.0) H Prothrombin Time INR 2.2 (0.8-1.1) H Sodium Level 143 mmol/L (136-145) Potassium Level 4.9 mmol/L (3.5-5.1) Chloride Level 103 mmol/L (98-107) Carbon Dioxide Level 39 mmol/L (21-32) H Anion Gap 1 (6-14) L Blood Urea Nitrogen 91 mg/dL (8-26) H Creatinine 1.5 mg/dL (0.7-1.3) H Estimated GFR (Cockcroft-Gault) 44.3 BUN/Creatinine Ratio 61 (6-20) H Glucose Level 140 mg/dL (70-99) H Calcium Level 8.4 mg/dL (8.5-10.1) L Total Bilirubin 0.2 mg/dL (0.2-1.0) Aspartate Amino Transferase (AST) 15 U/L (15-37) Alanine Aminotransferase (ALT) 40 U/L (16-63) Alkaline Phosphatase 96 U/L (46-116) Total Protein 7.0 g/dL (6.4-8.2) Albumin 3.1 g/dL (3.4-5.0) L Albumin/Globulin Ratio 0.8 (1.0-1.7) L Laboratory Tests 11/25/19 04:50 Laboratory Tests 11/25/19 04:50 Meds Current Medications Medications (Trade) Dose Ordered Sig/Isaiah Route PRN Reason Start Time Stop Time Status Last Admin Dose Admin Albuterol Sulfate (Ventolin Hfa) 1 puff PRN QID PRN INH SOA 11/24/19 11:00 11/24/19 11:46 Methylprednisolone Sodium Succinate (SOLU-Medrol 40MG VIAL) 60 mg DAILY IV 11/24/19 11:00 11/25/19 10:30 Ceftriaxone Sodium (Rocephin) 1 gm Q24H IVP 11/24/19 13:00 11/24/19 11:54 Azithromycin 500 mg/Sodium Chloride 250 ml @ 250 mls/hr Q24H IV 11/24/19 13:00 11/24/19 11:46 Albuterol/ Ipratropium (Duoneb) 3 ml RTQID NEB 11/24/19 16:00 11/25/19 07:10 Assessment Assessment 1. 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 2. Acute on chronic systolic and diastolic congestive heart failure. 3. Diabetes mellitus type 2 with neuropathy. 4. Chronic kidney disease stage 3. 5. Hypertension. 6. Obstructive sleep apnea, on Trilogy at home. 7. Severe chronic obstructive pulmonary disease. 8. Electrolyte imbalance. 9. Atrial fibrillation. 10. Physical deconditioning. 11. Osteoarthritis. 12. Obesity. 13. Peripheral neuropathy. 14. History of permanent pacemaker. 15. History of cancer of the prostate, treated with radiation therapy. 16. Hyperlipidemia. 17. Noncompliance with diet. 18. 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 PLAN: 1. Acute on chronic , hypoxic and hypercapnic respiratory failure- start BiPAP. Continue oxygen by nasal cannula as needed. Resume home medications. Consult Dr. Florence for pulmonary evaluation and management. He is much more responsive today but patient told me to continue to take all the s teps that are necessary as per my discretion. I will start him on IV steroids, albuterol inhaler and IV Zithromax and Rocephin Will not use nebulizer until COVID test is reported. Patient states that his trilogy machine at home is not working properly. I have advised him to check with . COVID-19 test has also been performed and is negative 2. Acute on chronic systolic and diastolic congestive heart failure with ejection fraction of 30% on previous echocardiogram. Consult Dr. Leiva for Cardiology evaluation and management. The patient had recently seen Dr. Cain who is his regular crop farm helper. He had recommended hospitalization, but the patient did not want to be admitted. The patient may need IV dobutamine as diuretics including Bumex and Zaroxolyn, may not be mobilizing fluid enough. He does have chronic venous insufficiency, so some of the swelling may be because of that. 3. Diabetes mellitus type 2 with neuropathy. Not controlled due to steroids. Add Lantus. Continue glipizide and sliding scale insulin. 4. Obstructive sleep apnea. 5. Severe chronic obstructive pulmonary disease. Patient had exacerbation. This is responding to steroids. 6. Physical deconditioning. 7. Atrial fibrillation. 8. Continue to monitor the protime. Continue Coumadin. 9. Diabetes mellitus type 2 with hyperglycemia. Continue to monitor blood sugar. 10. Chronic kidney disease stage III . BUN 91, creatinine 1.5. For details, please refer to the orders. Clinically improving. Condition, treatment, options, CODE STATUS and different options discussed with the patient and his cousin Kathia at bedside. Patient would like to continue aggressive care for few days if he is very sick and then if there is no improvement could stop aggressive measures. Prognosis of this patient is very poor. Plan Plan For more details regarding further plans, please refer to the orders. Justifications for Admission Other Justification REYNA SHAW MD Nov 25, 2019 10:38
[2019-11-25 11:00] VITALS: BP 141/52
[2019-11-25] MEDS: INSULIN GLARGINE SYRINGE. SQ SCH (11:19)
--- NOTE | 2019-11-25 11:25 | PDOC ---
CARDIOLOGY PROGRESS NOTE SUBJECTIVE: No acute events overnight. Patient has been treated overnight with BiPAP therapy and reports improvement. OBJECTIVE: Vital Signs/I&O: Vital Signs Date Time Temp Pulse Resp B/P (MAP) Pulse Ox O2 Delivery O2 Flow Rate FiO2 11/25/19 11:21 93 4.5 11/25/19 11:00 97.8 74 18 141/52 (81) Nasal Cannula 97.8 I & O 11/24/19 11/24/19 11/25/19 15:00 23:00 07:00 Intake Total 420 ml 300 ml Output Total 350 ml 300 ml 100 ml Balance 70 ml 0 ml -100 ml Objective: GEN.: No apparent distress. Alert and oriented. HEENT: Head is normocephalic, atraumatic NECK: Supple. LUNGS: Bilateral rhonchi and rales HEART: Irregular heart tones, diminished pedal pulses ABDOMEN: Soft, nontender. Positive bowel sounds. EXTREMITIES: 2+ lower extremity edema NEUROLOGIC: Normal speech, normal tone PSYCHIATRIC: Normal affect, normal mood. SKIN: No ulcerations CURRENT MEDICATIONS: Current Medications Medications (Trade) Dose Ordered Sig/Isaiah Route PRN Reason Start Time Stop Time Status Last Admin Dose Admin Ceftriaxone Sodium (Rocephin) 1 gm Q24H IVP 11/24/19 13:00 11/24/19 11:54 Azithromycin 500 mg/Sodium Chloride 250 ml @ 250 mls/hr Q24H IV 11/24/19 13:00 11/24/19 11:46 Albuterol/ Ipratropium (Duoneb) 3 ml RTQID NEB 11/24/19 16:00 11/25/19 11:19 Insulin Glargine (Lantus Syringe) 6 unit DAILY10 SQ 11/25/19 10:00 11/25/19 11:19 DIAGNOSTIC TESTING: Hemoglobin, creatinine stable at baseline BNP elevated Chest x-rays reviewed, no obvious pulmonary pathology noted ASSESSMENT: 1. Acute on chronic hypoxic respiratory failure 2. Acute on chronic decompensated systolic and diastolic heart failure 3. Hypertension 4. Chronic venous insufficiency 5. Chronic atrial fibrillation, status post dual-chamber pacemaker placement for a prior history of sick sinus syndrome PLAN: 1. Continue metolazone and Bumex. 2. Plan for trial of intravenous inotropic support if he does not significantly improve in the next 24 hours. 3. Continue aggressive compression therapy for his lower extremities 4. Continue therapy for presumed infection Justicifation of Admission Dx: Justifications for Admission: Justification of Admission Dx: Yes ANISA DSOUZA MD Nov 25, 2019 11:25
--- NOTE | 2019-11-25 11:30 | NUR ---
Wound/Ostomy Care Wound Type/Assessment: Wound care consult for bilateral lower legs VLUs and right knee blister. Pt is currently under treatment at [facility], known to wound care team. Wounds cleansed with wound wash and measured, right lower leg is now healed. Treatment Recommendations/Plan: Left lower leg and right knee both covered with contact layer and foam. Education provided: pt educated on PU prevention and leg elevation. Offloading surface/device: pillows to elevate legs Recommended Referrals/Tests: n/a Discharge Recommendations for dressings: cleanse wound with wound wash, cover with contact layer or xeroform, cover with foams,change every 3 days. Pt will call after discharge to schedule appt at [facility].
[2019-11-25] MEDS: cefTRIAXone IV Push 1 GM VIAL. IVP SCH (14:39)
[2019-11-25] MEDS: AZITHROMYCIN 500 MG in IV NORMAL SALINE 250ML 250 ML IV SCH (14:39)
[2019-11-25] MEDS: LACTOBACILLUS RHAMNOSUS GG 1 CAPSULE. PO SCH ×2 (14:41→20:37)
--- NOTE | 2019-11-25 15:09 | NUR ---
SW following. Spoke with RN and reviewed chart. Pt from home. Pt COVID negative. Pt on IV abx. Pt has a trilogy at home that is not working properly per Dr. Florence. CHERIE notified Jose with [facility] and requested that he follow up with pt and family. SW following.
[2019-11-25 15:19] VITALS: BP 158/58
--- NOTE | 2019-11-25 17:00 | EKG ---
[facility] [address] [place] [address] Test Date: 2019-11-23 Test Time: 01:22:11 Pat Name: CARMELITA DAVISON Department: Room: Gender: M Nutritionalist: : 1930 Requested By: GABRIEL PRO Order Number: [id number] Reading MD: Measurements Intervals [place] Rate: P: [place]: QRS: QRSD: T: QT: QTc: Interpretive Statements No previous ECG available for comparison
[2019-11-25] MEDS: WARFARIN 2 MG TABLET. PO SCH (17:41)
[2019-11-25 19:04] VITALS: BP 136/54
[2019-11-25] MEDS: MONTELUKAST SODIUM 10 MG TABLET. PO SCH (20:37)
[2019-11-25 23:00] VITALS: BP 134/49
[2019-11-26 03:00] VITALS: BP 139/57
[2019-11-26 04:24] LABS: BASO % 0 % (0-3); EOS % 0 % (0-3); HEMATOCRIT 26.5 % (39.0-53.0); HEMOGLOBIN 8.1 g/dL (13.0-17.5); LYMPH # 0.9 x10^3/uL (1.0-4.8); LYMPH % 12 % (24-48); MEAN CORPUSCULAR HEMOGLOBIN 26 pg (25-35); MEAN CORPUSCULAR HGB CONC 31 g/dL (31-37); MEAN CORPUSCULAR VOLUME 84 fL (79-100); MONO # 0.7 x10^3/uL (0.0-1.1); MONO % 9 % (0-9); NEUT # 5.8 x10^3/uL (1.8-7.7); NEUT % 78 % (31-73); PLATELET COUNT 128 x10^3/uL (140-400); RED BLOOD COUNT 3.15 x10^6/uL (4.30-5.70); RED CELL DISTRIBUTION WIDTH 16.1 % (11.5-14.5); WHITE BLOOD COUNT 7.4 x10^3/uL (4.0-11.0)
[2019-11-26 05:24] LABS: BLOOD UREA NITROGEN 98 mg/dL (8-26); CALCIUM 7.9 mg/dL (8.5-10.1); CARBON DIOXIDE 40 mmol/L (21-32); CHLORIDE 105 mmol/L (98-107); CREATININE 1.5 mg/dL (0.7-1.3); GFR 44.3; GLUCOSE 81 mg/dL (70-99); POTASSIUM 4.5 mmol/L (3.5-5.1); SODIUM 143 mmol/L (136-145)
--- NOTE | 2019-11-26 05:24 | EKG ---
[facility] [address] [place] [address] Test Date: 2019-11-23 Test Time: 08:38:16 Pat Name: CARMELITA DAVISON Department: Room: 660 1 Gender: M Rubber Cutter: : 1930 Requested By: GABRIEL PRO Order Number: [id number] Reading MD: Measurements Intervals [place] Rate: 58 P: 42 [place]: 160 QRS: -1 QRSD: 84 T: 192 QT: 420 QTc: 416 Interpretive Statements SINUS RHYTHM LEFTWARD AXIS ST & T ABNORMALITY, CONSIDER ANTEROLATERAL ISCHEMIA OR LEFT VENTRICULAR STRAIN INFEROLATERAL ISCHEMIA OR LEFT VENTRICULAR STRAIN ABNORMAL ECG RI6.02 Compared to ECG 11/23/2019 08:31:28 Left-axis deviation now present T-wave abnormality now present Possible ischemia now present
[2019-11-26 07:00] VITALS: BP 132/52
[2019-11-26] MEDS: INSULIN LISPRO 300 UNITS/3 ML VIAL. SQ SCH ×2 (07:30→17:22)
[2019-11-26] MEDS: IPRATRPIUM/ALBUTEROL 0.5/2.5MG 3 ML NEBU. NEB SCH ×4 (08:27→19:12)
[2019-11-26] MEDS: metOLazone 2.5 MG TABLET PO SCH (08:55)
[2019-11-26] MEDS: amLODIPine BESYLATE 5 MG TABLET PO SCH (08:56)
[2019-11-26] MEDS: MULTIVITAMIN I-VITE TABLET. PO SCH (08:56)
[2019-11-26] MEDS: MULTIVITAMIN with MINERAL TABLET. PO SCH (08:56)
[2019-11-26] MEDS: BUMETANIDE 1 MG TABLET. PO SCH (08:56)
[2019-11-26] MEDS: FERROUS SULFATE 325 MG TABLET. PO SCH (08:56)
[2019-11-26] MEDS: LACTOBACILLUS RHAMNOSUS GG 1 CAPSULE. PO SCH ×2 (08:56→21:00)
[2019-11-26] MEDS: LINAGLIPTIN 5 MG TABLET PO SCH (08:56)
[2019-11-26] MEDS: CARVEDILOL 3.125 MG TABLET. PO SCH ×2 (08:57→17:07)
[2019-11-26] MEDS: glipiZIDE 5 MG TABLET PO SCH ×2 (08:57→17:07)
[2019-11-26] MEDS: methylPREDNISolone SOD SUCC PF 40 MG/ML VIAL. IV SCH (08:57)
[2019-11-26] MEDS: INSULIN GLARGINE SYRINGE. SQ SCH (09:58)
--- NOTE | 2019-11-26 10:38 | PDOC ---
IM PROGRESS NOTES- Subjective Subjective Patient does not have any chest pains or dizziness. Remains weak and continues to have some dyspnea patient is feeling better, sitting in a chair and alert and responsive. He does have some dyspnea. That is chronic Objective Vitals/I&O Vital Signs Date Time Temp Pulse Resp B/P (MAP) Pulse Ox O2 Delivery O2 Flow Rate FiO2 11/26/19 08:57 60 132/52 11/26/19 08:27 93 Nasal Cannula 3.0 11/26/19 07:00 98.3 20 98.3 I & O 11/25/19 11/25/19 11/26/19 15:00 23:00 07:00 Intake Total 600 ml 100 ml Output Total 300 ml Balance 600 ml -200 ml Physical Exam Physical Exam GENERAL: The patient is more responsive, weak, in moderate respiratory distress, on BiPAP. SKIN: Warm and dry. There is no cyanosis. The patient has wounds on the lower extremities with blisters. They are also improving. HENT: Unremarkable. NECK: Supple. LUNGS: Decreased breath sounds bilaterally with occasional coarse breath sounds and rales. CARDIOVASCULAR: S1, S2 irregular. ABDOMEN: Soft, obese, nontender, EXTREMITIES: The patient has 1-2+ edema of the lower extremities. Has some venous insufficiency, has some wounds as noted earlier. Has a permanent pacemaker. 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 CENTRAL NERVOUS SYSTEM: More responsive. Labs Laboratory Tests Test 11/25/19 11:29 11/25/19 16:54 11/25/19 20:53 11/26/19 03:10 Glucose (Fingerstick) 223 mg/dL (70-99) H 269 mg/dL (70-99) H 211 mg/dL (70-99) H White Blood Count 7.4 x10^3/uL (4.0-11.0) Red Blood Count 3.15 x10^6/uL (4.30-5.70) L Hemoglobin 8.1 g/dL (13.0-17.5) L Hematocrit 26.5 % (39.0-53.0) L Mean Corpuscular Volume 84 fL (79-100) Mean Corpuscular Hemoglobin 26 pg (25-35) Mean Corpuscular Hemoglobin Concent 31 g/dL (31-37) Red Cell Distribution Width 16.1 % (11.5-14.5) H Platelet Count 128 x10^3/uL (140-400) L Neutrophils (%) (Auto) 78 % (31-73) H Lymphocytes (%) (Auto) 12 % (24-48) L Monocytes (%) (Auto) 9 % (0-9) Eosinophils (%) (Auto) 0 % (0-3) Basophils (%) (Auto) 0 % (0-3) Neutrophils # (Auto) 5.8 x10^3/uL (1.8-7.7) Lymphocytes # (Auto) 0.9 x10^3/uL (1.0-4.8) L Monocytes # (Auto) 0.7 x10^3/uL (0.0-1.1) Eosinophils # (Auto) 0.0 x10^3/uL (0.0-0.7) Basophils # (Auto) 0.0 x10^3/uL (0.0-0.2) Sodium Level 143 mmol/L (136-145) Potassium Level 4.5 mmol/L (3.5-5.1) Chloride Level 105 mmol/L (98-107) Carbon Dioxide Level 40 mmol/L (21-32) H Anion Gap (6-14) Blood Urea Nitrogen 98 mg/dL (8-26) H Creatinine 1.5 mg/dL (0.7-1.3) H Estimated GFR (Cockcroft-Gault) 44.3 Glucose Level 81 mg/dL (70-99) Calcium Level 7.9 mg/dL (8.5-10.1) L Test 11/26/19 08:02 Glucose (Fingerstick) 113 mg/dL (70-99) H Laboratory Tests 11/26/19 03:10 Laboratory Tests 11/26/19 03:10 Meds Current Medications Medications (Trade) Dose Ordered Sig/Isaiah Route PRN Reason Start Time Stop Time Status Last Admin Dose Admin Lactobacillus Rhamnosus (Culturelle) 1 cap BID PO 11/25/19 13:00 11/26/19 08:56 Assessment Assessment 1. 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 2. Acute on chronic systolic and diastolic congestive heart failure. 3. Diabetes mellitus type 2 with neuropathy. 4. Chronic kidney disease stage 3. 5. Hypertension. 6. Obstructive sleep apnea, on Trilogy at home. 7. Severe chronic obstructive pulmonary disease. 8. Electrolyte imbalance. 9. Atrial fibrillation. 10. Physical deconditioning. 11. Osteoarthritis. 12. Obesity. 13. Peripheral neuropathy. 14. History of permanent pacemaker. 15. History of cancer of the prostate, treated with radiation therapy. 16. Hyperlipidemia. 17. Noncompliance with diet. 18. 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 PLAN: 1. Acute on chronic , hypoxic and hypercapnic respiratory failure- start BiPAP. Continue oxygen by nasal cannula as needed. Resume home medications. Consult Dr. Florence for pulmonary evaluation and management. He is much more responsive today but patient told me to continue to take all the steps that are necessary as per my discretion. I will start him on IV steroids, albuterol inhaler and IV Zithromax and Rocephin Will not use nebulizer until COVID test is reported. Patient states that his trilogy machine at home is not working properly. I have advised him to check with . COVID-19 test has also been performed and is negative 2. Acute on chronic systolic and diastolic congestive heart failure with ejection fraction of 30% on previous echocardiogram. Consult Dr. Leiva for Cardiology evaluation and management. The patient had recently seen Dr. Cain who is his regular alarm mechanism adjuster. He had recommended hospitalization, but the patient did not want to be admitted. The patient may need IV dobutamine as diuretics including Bumex and Zaroxolyn, may not be mobilizing fluid enough. He does have chronic venous insufficiency, so some of the swelling may be because of that. 3. Diabetes mellitus type 2 with neuropathy. Not controlled due to steroids. Add Lantus. Continue glipizide and sliding scale insulin. 4. Obstructive sleep apnea. 5. Severe chronic obstructive pulmonary disease. Patient had exacerbation. This is responding to steroids. 6. Physical deconditioning. 7. Atrial fibrillation. 8. Continue to monitor the protime. Continue Coumadin. 9. Diabetes mellitus type 2 with hyperglycemia. Continue to monitor blood sugar. 10. Chronic kidney disease stage III . BUN 98, creatinine 1.5. For details, please refer to the orders. 11. Physical deconditioning-continue PT/OT. Consult Dr. Ferguson. Clinically improving. Condition, treatment, options, CODE STATUS and different options discussed with the patient and the family.. Patient would like to continue aggressive care for few days if he is very sick and then if there is no improvement could stop aggressive measures. Had Perez placed yesterday Plan Plan For more details regarding further plans, please refer to the orders. Justifications for Admission Other Justification REYNA SHAW MD Nov 26, 2019 10:38
[2019-11-26 11:00] VITALS: BP 127/83
--- NOTE | 2019-11-26 11:48 | PDOC ---
PULMONARY PROGRESS NOTES DATE: 11/26/19 TIME: 11:46 Subjective Patient awake alert off of BiPAP currently on 4 L of oxygen saturation 100% no increasing shortness of breath Vitals Vital Signs Date Time Temp Pulse Resp B/P (MAP) Pulse Ox O2 Delivery O2 Flow Rate FiO2 11/26/19 08:57 60 132/52 11/26/19 08:27 93 Nasal Cannula 3.0 11/26/19 07:00 98.3 20 98.3 ROS: No Nausea, No Chest Pain, No Abdominal Pain, No Increase Cough General: Alert Lungs: Clear Cardiovascular: S1, S2 Abdomen: Soft Neuro Exam: Alert Extremities: Other (Previous amputation left shoulder) Skin: Warm, Dry Labs Laboratory Tests Test 11/24/19 16:14 11/24/19 20:53 11/25/19 04:50 11/25/19 08:32 Glucose (Fingerstick) 276 mg/dL (70-99) 255 mg/dL (70-99) 124 mg/dL (70-99) White Blood Count 8.1 x10^3/uL (4.0-11.0) Red Blood Count 3.38 x10^6/uL (4.30-5.70) Hemoglobin 9.0 g/dL (13.0-17.5) Hematocrit 28.5 % (39.0-53.0) Mean Corpuscular Volume 84 fL (79-100) Mean Corpuscular Hemoglobin 27 pg (25-35) Mean Corpuscular Hemoglobin Concent 32 g/dL (31-37) Red Cell Distribution Width 16.0 % (11.5-14.5) Platelet Count 146 x10^3/uL (140-400) Neutrophils (%) (Auto) 84 % (31-73) Lymphocytes (%) (Auto) 8 % (24-48) Monocytes (%) (Auto) 8 % (0-9) Eosinophils (%) (Auto) 0 % (0-3) Basophils (%) (Auto) 0 % (0-3) Neutrophils # (Auto) 6.9 x10^3/uL (1.8-7.7) Lymphocytes # (Auto) 0.6 x10^3/uL (1.0-4.8) Monocytes # (Auto) 0.6 x10^3/uL (0.0-1.1) Eosinophils # (Auto) 0.0 x10^3/uL (0.0-0.7) Basophils # (Auto) 0.0 x10^3/uL (0.0-0.2) Prothrombin Time 24.4 SEC (11.7-14.0) Prothromb Time International Ratio 2.2 (0.8-1.1) Sodium Level 143 mmol/L (136-145) Potassium Level 4.9 mmol/L (3.5-5.1) Chloride Level 103 mmol/L (98-107) Carbon Dioxide Level 39 mmol/L (21-32) Anion Gap 1 (6-14) Blood Urea Nitrogen 91 mg/dL (8-26) Creatinine 1.5 mg/dL (0.7-1.3) Estimated GFR (Cockcroft-Gault) 44.3 BUN/Creatinine Ratio 61 (6-20) Glucose Level 140 mg/dL (70-99) Calcium Level 8.4 mg/dL (8.5-10.1) Total Bilirubin 0.2 mg/dL (0.2-1.0) Aspartate Amino Transf (AST/SGOT) 15 U/L (15-37) Alanine Aminotransferase (ALT/SGPT) 40 U/L (16-63) Alkaline Phosphatase 96 U/L (46-116) Total Protein 7.0 g/dL (6.4-8.2) Albumin 3.1 g/dL (3.4-5.0) Albumin/Globulin Ratio 0.8 (1.0-1.7) Test 11/25/19 11:29 11/25/19 16:54 11/25/19 20:53 11/26/19 03:10 Glucose (Fingerstick) 223 mg/dL (70-99) 269 mg/dL (70-99) 211 mg/dL (70-99) White Blood Count 7.4 x10^3/uL (4.0-11.0) Red Blood Count 3.15 x10^6/uL (4.30-5.70) Hemoglobin 8.1 g/dL (13.0-17.5) Hematocrit 26.5 % (39.0-53.0) Mean Corpuscular Volume 84 fL (79-100) Mean Corpuscular Hemoglobin 26 pg (25-35) Mean Corpuscular Hemoglobin Concent 31 g/dL (31-37) Red Cell Distribution Width 16.1 % (11.5-14.5) Platelet Count 128 x10^3/uL (140-400) Neutrophils (%) (Auto) 78 % (31-73) Lymphocytes (%) (Auto) 12 % (24-48) Monocytes (%) (Auto) 9 % (0-9) Eosinophils (%) (Auto) 0 % (0-3) Basophils (%) (Auto) 0 % (0-3) Neutrophils # (Auto) 5.8 x10^3/uL (1.8-7.7) Lymphocytes # (Auto) 0.9 x10^3/uL (1.0-4.8) Monocytes # (Auto) 0.7 x10^3/uL (0.0-1.1) Eosinophils # (Auto) 0.0 x10^3/uL (0.0-0.7) Basophils # (Auto) 0.0 x10^3/uL (0.0-0.2) Sodium Level 143 mmol/L (136-145) Potassium Level 4.5 mmol/L (3.5-5.1) Chloride Level 105 mmol/L (98-107) Carbon Dioxide Level 40 mmol/L (21-32) Anion Gap (6-14) Blood Urea Nitrogen 98 mg/dL (8-26) Creatinine 1.5 mg/dL (0.7-1.3) Estimated GFR (Cockcroft-Gault) 44.3 Glucose Level 81 mg/dL (70-99) Calcium Level 7.9 mg/dL (8.5-10.1) Test 11/26/19 08:02 Glucose (Fingerstick) 113 mg/dL (70-99) Laboratory Tests Test 11/25/19 16:54 11/25/19 20:53 11/26/19 03:10 11/26/19 08:02 Glucose (Fingerstick) 269 mg/dL (70-99) 211 mg/dL (70-99) 113 mg/dL (70-99) White Blood Count 7.4 x10^3/uL (4.0-11.0) Red Blood Count 3.15 x10^6/uL (4.30-5.70) Hemoglobin 8.1 g/dL (13.0-17.5) Hematocrit 26.5 % (39.0-53.0) Mean Corpuscular Volume 84 fL (79-100) Mean Corpuscular Hemoglobin 26 pg (25-35) Mean Corpuscular Hemoglobin Concent 31 g/dL (31-37) Red Cell Distribution Width 16.1 % (11.5-14.5) Platelet Count 128 x10^3/uL (140-400) Neutrophils (%) (Auto) 78 % (31-73) Lymphocytes (%) (Auto) 12 % (24-48) Monocytes (%) (Auto) 9 % (0-9) Eosinophils (%) (Auto) 0 % (0-3) Basophils (%) (Auto) 0 % (0-3) Neutrophils # (Auto) 5.8 x10^3/uL (1.8-7.7) Lymphocytes # (Auto) 0.9 x10^3/uL (1.0-4.8) Monocytes # (Auto) 0.7 x10^3/uL (0.0-1.1) Eosinophils # (Auto) 0.0 x10^3/uL (0.0-0.7) Basophils # (Auto) 0.0 x10^3/uL (0.0-0.2) Sodium Level 143 mmol/L (136-145) Potassium Level 4.5 mmol/L (3.5-5.1) Chloride Level 105 mmol/L (98-107) Carbon Dioxide Level 40 mmol/L (21-32) Anion Gap (6-14) Blood Urea Nitrogen 98 mg/dL (8-26) Creatinine 1.5 mg/dL (0.7-1.3) Estimated GFR (Cockcroft-Gault) 44.3 Glucose Level 81 mg/dL (70-99) Calcium Level 7.9 mg/dL (8.5-10.1) Medications Active Scripts Medications Dose Route/Sig Max Daily Dose Days Date Category Januvia (Sitagliptin Phosphate) 100 Mg Tablet 1 Tab PO DAILY 11/23/19 Reported Bumetanide 1 Mg Tablet 1 Tab PO DAILY 11/23/19 Reported Warfarin Sodium 2 Mg Tablet 2 Mg PO DAILY 11/23/19 Reported Proair Hfa Inhaler (Albuterol Sulfate) 8.5 Gm Hfa.aer.ad 2 Puff IH PRN Q4-6HRS PRN 21 06/06/19 Reported Multivitamins (Multivitamin) 1 Each Capsule 1 Cap PO DAILY 30 06/06/19 Reported Ferrous Sulfate 325 Mg Tablet 1 Tab PO DAILY 06/06/19 Reported Singulair Tablet (Montelukast Sodium) 10 Mg Tablet 10 Mg PO HS 06/06/19 Reported Metolazone 5 Mg Tablet 5 Mg PO DAILY 06/06/19 Reported Glipizide 5 Mg Tablet 1 Tab PO BIDAC 06/06/19 Reported Preservision Areds Softgel (Vit A/Vit C/Vit E/Zinc/Copper) 1 Each Capsule 1 Each PO BID 05/26/17 Reported Coreg (Carvedilol) 3.125 Mg Tablet 1 Tab PO BID 12/08/15 Reported Duoneb 0.5-3(2.5) Mg/3 Ml (Albuterol/Ipratropium) 3 Ml Ampul.neb 3 Ml IH Q4HRS 02/13/15 Reported Amlodipine Besylate 10 Mg Tablet 5 Mg PO DAILY 01/21/15 Reported Simvastatin 10 Mg Tablet 1 Tab PO QHS 01/21/15 Reported Comments CXR IMPRESSION: 1. Stable right basilar opacities. 2. Stable small bilateral pleural effusions. Impression . IMPRESSION: 1. 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 2. Acute on chronic diastolic heart failure. EF 30% 3. Type 2 diabetes with neuropathy. 4. Chronic kidney disease. 5. Hypertension. 6. Obstructive sleep apnea. 7. Severe chronic obstructive pulmonary disease. 8. Electrolyte abnormalities. 9. Peripheral neuropathy. 10. History of prostate cancer, treated with radiation. 11 SARS-CoV-2 negative Plan . SPOKE WITH PT. His trilogy machine is nonfunctional. DME to re-asses I will have social worker assistant here get in touch with his homecare company titrate O2 down to saturations close to 90%, Continue BiPAP qhs ABG f/u today Continue diuresis per cardiology Await covid-19 testing, negative, initiate nebulized treatment Continue steroids DVT/GI PPX taper off steroids d/w D/W RN Pt. is ASHISHR, ROCK ORR MD Nov 26, 2019 11:48
--- NOTE | 2019-11-26 11:50 | PDOC ---
JESSICA [place] DISPATCH SUPERVISOR 11/26/19 1150: CARDIO Progress Notes Date and Time Date of Service 11/26/19 Time of Evaluation 1140 Subjective Subjective: No Chest Pain, Other (LE edema, SOA improved improved) Vitals Vitals Vital Signs Date Time Temp Pulse Resp B/P (MAP) Pulse Ox O2 Delivery O2 Flow Rate FiO2 11/26/19 08:57 60 132/52 11/26/19 08:27 93 Nasal Cannula 3.0 11/26/19 07:00 98.3 20 98.3 Weight Weight [ ] Input and Output Intake and Output Intake and Output 11/26/19 07:00 Intake Total 700 ml Output Total 300 ml Balance 400 ml Intake Oral 700 ml Output Urine Total 300 ml # Voids 2 # Bowel Movements 2 Laboratory Labs Laboratory Tests Test 11/25/19 16:54 11/25/19 20:53 11/26/19 03:10 11/26/19 08:02 Glucose (Fingerstick) 269 mg/dL (70-99) 211 mg/dL (70-99) 113 mg/dL (70-99) White Blood Count 7.4 x10^3/uL (4.0-11.0) Red Blood Count 3.15 x10^6/uL (4.30-5.70) Hemoglobin 8.1 g/dL (13.0-17.5) Hematocrit 26.5 % (39.0-53.0) Mean Corpuscular Volume 84 fL (79-100) Mean Corpuscular Hemoglobin 26 pg (25-35) Mean Corpuscular Hemoglobin Concent 31 g/dL (31-37) Red Cell Distribution Width 16.1 % (11.5-14.5) Platelet Count 128 x10^3/uL (140-400) Neutrophils (%) (Auto) 78 % (31-73) Lymphocytes (%) (Auto) 12 % (24-48) Monocytes (%) (Auto) 9 % (0-9) Eosinophils (%) (Auto) 0 % (0-3) Basophils (%) (Auto) 0 % (0-3) Neutrophils # (Auto) 5.8 x10^3/uL (1.8-7.7) Lymphocytes # (Auto) 0.9 x10^3/uL (1.0-4.8) Monocytes # (Auto) 0.7 x10^3/uL (0.0-1.1) Eosinophils # (Auto) 0.0 x10^3/uL (0.0-0.7) Basophils # (Auto) 0.0 x10^3/uL (0.0-0.2) Sodium Level 143 mmol/L (136-145) Potassium Level 4.5 mmol/L (3.5-5.1) Chloride Level 105 mmol/L (98-107) Carbon Dioxide Level 40 mmol/L (21-32) Anion Gap (6-14) Blood Urea Nitrogen 98 mg/dL (8-26) Creatinine 1.5 mg/dL (0.7-1.3) Estimated GFR (Cockcroft-Gault) 44.3 Glucose Level 81 mg/dL (70-99) Calcium Level 7.9 mg/dL (8.5-10.1) Physical Exam HEENT: Neck Supple W Full Motion Chest: Symmetric LUNGS: Other (diminished bases ) Heart: RRR, murmurs (2/6 systolic murmur ) Abdomen: Soft N/T Extremities: No Edema (2-3+ bilateral LE edema, chronic venous insufficiency ) , Other (s/p left arm amputation) Neurology: alert, oriented, follow commands Assessment Assessment 1. Acute on chronic hypoxic respiratory failure. COVID negative 2. Acute on chronic systolic and diastolic heart failure 3. NICM: LVEF 30% 4. Chronic venous insufficiency 5. Hypertension; controlled 6. Diabetes, II 7. Chronic AFIB; AV paced. Chronic OAC with warfarin 8. SSS s/p PPM (Biotronik) 9. MARIVEL on CKD 10. COPD with chronic O2 use Recommendations Continued duiresis with metolazone and Bumex. Will give dose of IV Bumex this afternoon Discussed LE elevation. Compression stockings during the day BiPAP PRN Supportive care Justicifation of Admission Dx: Justifications for Admission: Justification of Admission Dx: Yes ANISA DSOUZA MD 11/26/19 1525: CARDIO Progress Notes Plan Plan The patient was seen and interviewed as well as examined at the bedside. The chart was reviewed. The case was discussed. Agree with the plan of care. JESSICA KAHN APRN Nov 26, 2019 11:50 ANISA DSOUZA MD Nov 26, 2019 15:25
[2019-11-26] MEDS: cefTRIAXone IV Push 1 GM VIAL. IVP SCH (12:22)
[2019-11-26] MEDS: AZITHROMYCIN 500 MG in IV NORMAL SALINE 250ML 250 ML IV SCH (12:23)
[2019-11-26 12:44] LABS: BASE EXCESS ABG 8 mmol/L (-3-3); HCO3 ABG 36 mmol/L (21-28); PO2 ABG 87 mmHg (65-108); SAT O2 ABG 96 % (92-99)
[2019-11-26 12:46] LABS: FIO2 ABG 28; PCO2 ABG 72 mmHg (35-46)
[2019-11-26] MEDS ORDERED: BUMETANIDE 1 MG/4 ML VIAL. IV ONE (14:00)
[2019-11-26 15:00] VITALS: BP 131/51
[2019-11-26] MEDS: WARFARIN 2 MG TABLET. PO SCH (16:07)
--- NOTE | 2019-11-26 16:09 | NUR ---
Patient refused to wear the [place] boots that was provided for him, this nurse explained the indications however, he still refused.
--- NOTE | 2019-11-26 16:27 | NUR ---
Patient's ABG results relayed to Dr. Taylor at 1626, order received to titrate oxygen to 2 liters per minute. The patient has to wear the BiPAP at night.
--- NOTE | 2019-11-26 17:05 | NUR ---
SW following. Spoke with RN and reviewed chart. Pt from home. Pt COVID negative. Pt remains on IV abx. LVM for [facility] as pt is not a client with [facility]. SW following.
--- NOTE | 2019-11-26 18:10 | CONS ---
DATE OF CONSULTATION: 11/26/2019 ATTENDING PHYSICIAN: Linda Lyon MD REASON FOR CONSULTATION: The patient was seen at the request of Dr. Lyon for rehab evaluation. HISTORY OF PRESENT ILLNESS: This is an 89-year-old male patient with chronic respiratory failure, on oxygen by nasal cannula using trilogy at home, became more short of breath in the last few weeks. He was found with acute on chronic, both systolic and diastolic congestive heart failure and history of cardiac ejection fraction of only 30%. The patient has had increased diuretics. The patient has seen his salesperson wigs as his swelling did not improve any. His oxygen requirements have significantly increased. He was admitted on 11/23/2019. The patient admits that he fell down at home. The patient denies any significant pain at this time. PAST MEDICAL HISTORY: Includes acute renal failure in a setting of chronic kidney disease stage 3 in May of this year, acute on chronic diastolic and systolic congestive heart failure, multiple blisters and wounds in both lower extremities, diabetes mellitus with peripheral neuropathy, hypertension, atrial fibrillation, carcinoma of prostate, treated with radiation therapy, hyperlipidemia, severe chronic obstructive pulmonary disease, sleep apnea with a trilogy machine at home, degenerative joint disease, chronic pain, and permanent pacemaker placement. The patient had malignant tumor of left upper extremity, requiring disarticulation of left shoulder. The patient had pacemaker placed in 11/2015. The patient is not known allergic to any medication. The patient usually walks using a quad cane. PHYSICAL EXAMINATION: Today revealed an elderly male. He is alert, oriented to time, place, person and circumstance and follows commands appropriately. The patient moves right upper and both lower extremities actively where he had 4+/5 grade muscle strength. He had dressing to his right knee and left leg anterior aspect. He had significant edema and redness of his feet and legs. He had absent knee and ankle jerks. He had decreased touch and pinprick sensation over a sock and glove distribution. The patient is independent with bed mobility and transfers and up walking using a quad cane at bedside with wide-based gait. He gets tired easily. He is using oxygen by nasal cannula and receiving IV fluids and he had an indwelling Perez catheter in place. ASSESSMENT: An elderly male with recent hospitalization for [id number] respiratory failure, acute on chronic systolic and diastolic congestive heart failure with cardiac ejection fraction of 30%, hypertension, diabetes mellitus with peripheral neuropathy, atrial fibrillation, status post permanent pacemaker placement, carcinoma of prostate, status post radiation therapy, hyperlipidemia, chronic obstructive pulmonary disease, sleep apnea with a trilogy machine. RECOMMENDATION: To get him up as tolerated, to try vascular boots to get rid of some of the redness and swelling of his feet and legs. Dr. Lyon, I appreciate asking me to participate in the care of this interesting patient. I will be glad to see him for followup with you on as needed basis. CARMEN KELLY MD DR: SRIRAM/shad JOB#: [id number] / [id number]
[2019-11-26 18:53] VITALS: BP 141/85
[2019-11-26] MEDS: MONTELUKAST SODIUM 10 MG TABLET. PO SCH (21:00)
--- NOTE | 2019-11-26 21:00 | NUR ---
Patient asleep at 2100, his hs meds held until he awakens, as he is tolerating the bipap and resting.
--- NOTE | 2019-11-26 22:43 | NUR ---
Patient up at side of the bed, bipap tubing disconnected, patient wants o2 on now, changed out, bipap on standby, monitoring RR and sats.
--- NOTE | 2019-11-26 22:50 | NUR ---
Patient deciding he is leaving, patient confused, agitated, attempt to reorient patient, he takes oxygen off, saturation probe off, attempts to pull out his talbert, 'I'm leaving..you cant stop me...Brenda done everything you want..I've worn that machine and I'm done...I'm leaving and you can't stop me..' patient stands, pushes body against this designer writer, "you're not gonna stop me...' This designer writer call Joceline Pearce at approximately 2256, [place] nursing extruding department supervisor and security answers call, enters room, the patient says (to security), "I'm not afraid of you..you come on over here...' this designer writer Addendum: 11/26/19 at 2344 by BRIAN MANUEL RN (this designer writer had to save previous notation, as patient got up from chair, so as to assure that he doesn't fall), and crary extruding department supervisor attempt to get patient back in bed..refusing, adamant not to do as staff suggest, pt adamant that he's going to leave...wanting coffee...(which he refuses), Staff attempt to inform him of the importance to relax, get back in bed, and discuss leaving with Dr Lyon in the morning, patient refuses...patient insists he doesn't care if his oxygen is low..doesn't care if he doesn't live (when informed of the potential outcome if he doesn't relax and leave his oxygen tubing on...), 'I don't care...!" Patient refusing seroquel ordered per Dr Lyon, "I'm not letting you put anything in my body..." Patient does occasionally inform staff that he's not afraid of (that man-security). Patient quiet, although continues to refuse care, did allow his nasal cannula to be placed. Monitoring patient for safety. Patient also refuses to allow staff to obtain his vital signs at this time.
[2019-11-26] MEDS ORDERED: QUEtiapine 25 MG TABLET. PO PRN ×2 (23:15)
--- NOTE | 2019-11-27 00:03 | NUR ---
Patient calls Bobo, his DPOA, agitated, wants her to come get him, 'or there's some changes I'm going to make", Bobo calls this underwriter mortgage loan, enquiring about his status, this underwriter mortgage loan informs her hes been confused, his oxygen levels lower, drops when he gets worked up. She states the Dr said he only needs to wear the machine for 2-3 hours, and if he can do that , it would be good, this underwriter mortgage loan informs her that he did wear it for about 3 hours, but awakened and was confused..Bobo asks if she can come up and sit with him, this underwriter mortgage loan informs her that would have to check with supervisor feed house, as with radha, the policies have changed, thus, this underwriter mortgage loan calls bobo back, informs her that she cannot come to room, after visiting hours...Bobo states she was going to come to hospital and get things figured out...nursing supervisor feed house, Wendy, notified.
--- NOTE | 2019-11-27 00:20 | NUR ---
Dr Lyon calls, apparently patient called his answering service, he is updated o patient's status, orders received, ordered to adjust solumedrol to 30mg ivp, but patient is on prednisone, will report of this in am.
--- NOTE | 2019-11-27 04:20 | NUR ---
Patient calls for assistance to the bedside commode, had bm, assisted back up into the recliner, coffee given per request, patient informs this magnetic tape typewriter operator, "Thank you for all that you do...", This magnetic tape typewriter operator replies, "I'm sure if I were in your shoes, you would take care of me", he does agree that he would do so...
--- NOTE | 2019-11-27 06:36 | NUR ---
Daily weight not yet obtained, as patient is sitting up in recliner, to inform day rn.
[2019-11-27 08:08] LABS: BASO # 0.1 x10^3/uL (0.0-0.2); BASO % 1 % (0-3); EOS # 0.1 x10^3/uL (0.0-0.7); EOS % 1 % (0-3); HEMOGLOBIN 9.2 g/dL (13.0-17.5); LYMPH # 1.7 x10^3/uL (1.0-4.8); LYMPH % 15 % (24-48); MEAN CORPUSCULAR HEMOGLOBIN 26 pg (25-35); MEAN CORPUSCULAR HGB CONC 31 g/dL (31-37); MEAN CORPUSCULAR VOLUME 84 fL (79-100); MONO # 1.2 x10^3/uL (0.0-1.1); MONO % 10 % (0-9); NEUT # 8.2 x10^3/uL (1.8-7.7); NEUT % 73 % (31-73); PLATELET COUNT 147 x10^3/uL (140-400); RED BLOOD COUNT 3.58 x10^6/uL (4.30-5.70); RED CELL DISTRIBUTION WIDTH 16.3 % (11.5-14.5); WHITE BLOOD COUNT 11.2 x10^3/uL (4.0-11.0)
[2019-11-27] MEDS: IPRATRPIUM/ALBUTEROL 0.5/2.5MG 3 ML NEBU. NEB SCH ×4 (08:10→20:03)
[2019-11-27 08:16] LABS: PROTHROMBIN TIME PATIENT 20.1 SEC (11.7-14.0)
[2019-11-27 08:17] LABS: CALCIUM 7.9 mg/dL (8.5-10.1); CREATININE 1.8 mg/dL (0.7-1.3); GFR 35.9; POTASSIUM 4.6 mmol/L (3.5-5.1)
[2019-11-27] MEDS: BUMETANIDE 1 MG TABLET. PO SCH (09:39)
[2019-11-27] MEDS: metOLazone 2.5 MG TABLET PO SCH (09:39)
[2019-11-27] MEDS: LACTOBACILLUS RHAMNOSUS GG 1 CAPSULE. PO SCH ×2 (09:39→22:19)
[2019-11-27] MEDS: MULTIVITAMIN with MINERAL TABLET. PO SCH (09:39)
[2019-11-27] MEDS: predniSONE 20 MG TABLET PO SCH (09:40)
[2019-11-27] MEDS: CARVEDILOL 3.125 MG TABLET. PO SCH ×2 (09:41→17:03)
[2019-11-27] MEDS: amLODIPine BESYLATE 5 MG TABLET PO SCH (09:41)
[2019-11-27] MEDS: FERROUS SULFATE 325 MG TABLET. PO SCH (09:41)
[2019-11-27] MEDS: glipiZIDE 5 MG TABLET PO SCH ×2 (09:41→17:03)
[2019-11-27] MEDS: LINAGLIPTIN 5 MG TABLET PO SCH (09:41)
--- NOTE | 2019-11-27 09:44 | PDOC ---
IM PROGRESS NOTES- Subjective Subjective The patient was extremely confused, agitated last night. He called me and family members. Security was also called. he refused to take medications and did not wear BiPAP and was very paranoid. He refused to take Zyprexa. He refused to take IV Ativan. As per staff subsequently in the morning he became much more cooperative. Patient states that all he wanted to do was get out of the bed. He did not wear his oxygen sensor and he wants Perez catheter out. He wants to use BiPAP as needed only. Objective Vitals/I&O Vital Signs Date Time Temp Pulse Resp B/P (MAP) Pulse Ox O2 Delivery O2 Flow Rate FiO2 11/27/19 08:11 94 Nasal Cannula 2.0 11/27/19 04:00 22 11/26/19 18:53 98.7 66 98.7 I & O 11/26/19 11/26/19 11/27/19 15:00 23:00 07:00 Intake Total 550 ml 600 ml 200 ml Output Total 1850 ml 750 ml Balance 550 ml -1250 ml -550 ml Physical Exam Physical Exam GENERAL: The patient is more responsive, weak, in moderate respiratory distress, on BiPAP. SKIN: Warm and dry. There is no cyanosis. The patient has wounds on the lower extremities with blisters. They are also improving. HENT: Unremarkable. NECK: Supple. LUNGS: Decreased breath sounds bilaterally with occasional coarse breath sounds and rales. CARDIOVASCULAR: S1, S2 irregular. ABDOMEN: Soft, obese, nontender, EXTREMITIES: The patient has 1-2+ edema of the lower extremities. Has some venous insufficiency, has some wounds as noted earlier. Has a permanent pacemaker. 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 CENTRAL NERVOUS SYSTEM: More responsive. Labs Laboratory Tests Test 11/26/19 12:25 11/26/19 12:30 11/26/19 17:15 11/27/19 07:40 Glucose (Fingerstick) 247 mg/dL (70-99) H 360 mg/dL (70-99) H O2 Saturation 96 % (92-99) Arterial Blood pH 7.31 (7.35-7.45) L Arterial Blood pCO2 at Patient Temp 72 mmHg (35-46) *H Arterial Blood pO2 at Patient Temp 87 mmHg (65-108) Arterial Blood HCO3 36 mmol/L (21-28) H Arterial Blood Base Excess 8 mmol/L (-3-3) H FiO2 28 White Blood Count 11.2 x10^3/uL (4.0-11.0) H Red Blood Count 3.58 x10^6/uL (4.30-5.70) L Hemoglobin 9.2 g/dL (13.0-17.5) L Hematocrit 30.0 % (39.0-53.0) L Mean Corpuscular Volume 84 fL (79-100) Mean Corpuscular Hemoglobin 26 pg (25-35) Mean Corpuscular Hemoglobin Concent 31 g/dL (31-37) Red Cell Distribution Width 16.3 % (11.5-14.5) H Platelet Count 147 x10^3/uL (140-400) Neutrophils (%) (Auto) 73 % (31-73) Lymphocytes (%) (Auto) 15 % (24-48) L Monocytes (%) (Auto) 10 % (0-9) H Eosinophils (%) (Auto) 1 % (0-3) Basophils (%) (Auto) 1 % (0-3) Neutrophils # (Auto) 8.2 x10^3/uL (1.8-7.7) H Lymphocytes # (Auto) 1.7 x10^3/uL (1.0-4.8) Monocytes # (Auto) 1.2 x10^3/uL (0.0-1.1) H Eosinophils # (Auto) 0.1 x10^3/uL (0.0-0.7) Basophils # (Auto) 0.1 x10^3/uL (0.0-0.2) Prothrombin Time 20.1 SEC (11.7-14.0) H Prothrombin Time INR 1.7 (0.8-1.1) H Sodium Level 143 mmol/L (136-145) Potassium Level 4.6 mmol/L (3.5-5.1) Chloride Level 102 mmol/L (98-107) Carbon Dioxide Level 41 mmol/L (21-32) H Anion Gap 0 (6-14) L Blood Urea Nitrogen 100 mg/dL (8-26) H Creatinine 1.8 mg/dL (0.7-1.3) H Estimated GFR (Cockcroft-Gault) 35.9 Glucose Level 137 mg/dL (70-99) H Calcium Level 7.9 mg/dL (8.5-10.1) L Test 11/27/19 08:31 Glucose (Fingerstick) 166 mg/dL (70-99) H Laboratory Tests 11/27/19 07:40 Laboratory Tests 11/27/19 07:40 Meds Current Medications Medications (Trade) Dose Ordered Sig/Isaiah Route PRN Reason Start Time Stop Time Status Last Admin Dose Admin Bumetanide (Bumex) 1 mg 1X ONCE IV 11/26/19 14:00 11/26/19 14:01 DC 11/26/19 15:04 Assessment Assessment 1. 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 2. Acute on chronic systolic and diastolic congestive heart failure. 3. Diabetes mellitus type 2 with neuropathy. 4. Chronic kidney disease stage 3. 5. Hypertension. 6. Obstructive sleep apnea, on Trilogy at home. 7. Severe chronic obstructive pulmonary disease. 8. Electrolyte imbalance. 9. Atrial fibrillation. 10. Physical deconditioning. 11. Osteoarthritis. 12. Obesity. 13. Peripheral neuropathy. 14. History of permanent pacemaker. 15. History of cancer of the prostate, treated with radiation therapy. 16. Hyperlipidemia. 17. Noncompliance with diet. 18. 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 PLAN: 1. Acute on chronic , hypoxic and hypercapnic respiratory failure- start BiPAP. Continue oxygen by nasal cannula as needed. Resume home medications. Consult Dr. Florence for pulmonary evaluation and management. He is much more responsive today but patient told me to continue to take all the steps that are necessary as per my discretion. I will start him on IV steroids, albuterol inhaler and IV Zithromax and Rocephin Will not use nebulizer until COVID test is reported. Patient states that his trilogy machine at home is not working properly. I have advised him to check with . COVID-19 test has also been performed and is negative 2. Acute on chronic systolic and diastolic congestive heart failure with ejection fraction of 30% on previous echocardiogram. Consult Dr. Leiva for Cardiology evaluation and management. The patient had recently seen Dr. Cain who is his regular axle bearing polisher. He had recommended hospitalization, but the patient did not want to be admitted. The patient may need IV dobutamine as diuretics including Bumex and Zaroxolyn, may not be mobilizing fluid enough. He does have chronic venous insufficiency, so some of the swelling may be because of that. Continues to have a lot of swelling and patient is receiving IV Bumex. He is not responding well. He may need dobutamine and/or dialysis. 3. Diabetes mellitus type 2 with neuropathy. Not controlled due to steroids. Add Lantus. Continue glipizide and sliding scale insulin. 4. Obstructive sleep apnea. 5. Severe chronic obstructive pulmonary disease. Patient had exacerbation. This is responding to steroids. IV Solu-Medrol has been changed to oral prednisone 6. Physical deconditioning. 7. Atrial fibrillation. 8. Continue to monitor the protime. Continue Coumadin. 9. Diabetes mellitus type 2 with hyperglycemia. Continue to monitor blood sugar. 10. Chronic kidney disease stage III . BUN 100, creatinine 1.8. For details, please refer to the orders. 11. Physical deconditioning-continue PT/OT. Consult Dr. Ferguson. 12. Acute metabolic encephalopathy-Zyprexa ODT as needed. Steroids have been converted to p.o. This may also help. Patient is encouraged to wear BiPAP at night. Consider intermediate placement if remains stable. Discussed with .. He is not a candidate for [facility]. He is able to walk. I will discontinue Perez catheter. Condition, treatment and options discussed with the patient and the family. Discussed with staff about patient's needs. Condition, treatment, options, CODE STATUS and different options discussed with the patient and the family.. Patient would like to continue aggressive care for few days if he is very sick and then if there is no improvement could stop aggressive measures. Plan Plan For more details regarding further plans, please refer to the orders. Justifications for Admission Other Justification REYNA SHAW MD Nov 27, 2019 09:44
[2019-11-27] MEDS: INSULIN LISPRO 300 UNITS/3 ML VIAL. SQ SCH ×2 (09:50→12:11)
--- NOTE | 2019-11-27 10:59 | PDOC ---
PULMONARY PROGRESS NOTES DATE: 11/27/19 TIME: 10:57 Subjective Patient awake alert off of BiPAP currently on 2 L of oxygen Had a rough night Vitals Vital Signs Date Time Temp Pulse Resp B/P (MAP) Pulse Ox O2 Delivery O2 Flow Rate FiO2 11/27/19 09:41 66 141/85 11/27/19 08:11 94 Nasal Cannula 2.0 11/27/19 04:00 22 11/26/19 18:53 98.7 98.7 ROS: No Nausea, No Chest Pain, No Abdominal Pain, No Increase Cough General: Alert, No acute distress Lungs: Clear Cardiovascular: S1, S2 Abdomen: Soft Neuro Exam: Alert Extremities: Other (Previous amputation left shoulder, edema) Skin: Warm, Dry Labs Laboratory Tests Test 11/25/19 11:29 11/25/19 16:54 11/25/19 20:53 11/26/19 03:10 Glucose (Fingerstick) 223 mg/dL (70-99) 269 mg/dL (70-99) 211 mg/dL (70-99) White Blood Count 7.4 x10^3/uL (4.0-11.0) Red Blood Count 3.15 x10^6/uL (4.30-5.70) Hemoglobin 8.1 g/dL (13.0-17.5) Hematocrit 26.5 % (39.0-53.0) Mean Corpuscular Volume 84 fL (79-100) Mean Corpuscular Hemoglobin 26 pg (25-35) Mean Corpuscular Hemoglobin Concent 31 g/dL (31-37) Red Cell Distribution Width 16.1 % (11.5-14.5) Platelet Count 128 x10^3/uL (140-400) Neutrophils (%) (Auto) 78 % (31-73) Lymphocytes (%) (Auto) 12 % (24-48) Monocytes (%) (Auto) 9 % (0-9) Eosinophils (%) (Auto) 0 % (0-3) Basophils (%) (Auto) 0 % (0-3) Neutrophils # (Auto) 5.8 x10^3/uL (1.8-7.7) Lymphocytes # (Auto) 0.9 x10^3/uL (1.0-4.8) Monocytes # (Auto) 0.7 x10^3/uL (0.0-1.1) Eosinophils # (Auto) 0.0 x10^3/uL (0.0-0.7) Basophils # (Auto) 0.0 x10^3/uL (0.0-0.2) Sodium Level 143 mmol/L (136-145) Potassium Level 4.5 mmol/L (3.5-5.1) Chloride Level 105 mmol/L (98-107) Carbon Dioxide Level 40 mmol/L (21-32) Anion Gap (6-14) Blood Urea Nitrogen 98 mg/dL (8-26) Creatinine 1.5 mg/dL (0.7-1.3) Estimated GFR (Cockcroft-Gault) 44.3 Glucose Level 81 mg/dL (70-99) Calcium Level 7.9 mg/dL (8.5-10.1) Test 11/26/19 08:02 11/26/19 12:25 11/26/19 12:30 11/26/19 17:15 Glucose (Fingerstick) 113 mg/dL (70-99) 247 mg/dL (70-99) 360 mg/dL (70-99) O2 Saturation 96 % (92-99) Arterial Blood pH 7.31 (7.35-7.45) Arterial Blood pCO2 at Patient Temp 72 mmHg (35-46) Arterial Blood pO2 at Patient Temp 87 mmHg (65-108) Arterial Blood HCO3 36 mmol/L (21-28) Arterial Blood Base Excess 8 mmol/L (-3-3) FiO2 28 Test 11/27/19 07:40 11/27/19 08:31 White Blood Count 11.2 x10^3/uL (4.0-11.0) Red Blood Count 3.58 x10^6/uL (4.30-5.70) Hemoglobin 9.2 g/dL (13.0-17.5) Hematocrit 30.0 % (39.0-53.0) Mean Corpuscular Volume 84 fL (79-100) Mean Corpuscular Hemoglobin 26 pg (25-35) Mean Corpuscular Hemoglobin Concent 31 g/dL (31-37) Red Cell Distribution Width 16.3 % (11.5-14.5) Platelet Count 147 x10^3/uL (140-400) Neutrophils (%) (Auto) 73 % (31-73) Lymphocytes (%) (Auto) 15 % (24-48) Monocytes (%) (Auto) 10 % (0-9) Eosinophils (%) (Auto) 1 % (0-3) Basophils (%) (Auto) 1 % (0-3) Neutrophils # (Auto) 8.2 x10^3/uL (1.8-7.7) Lymphocytes # (Auto) 1.7 x10^3/uL (1.0-4.8) Monocytes # (Auto) 1.2 x10^3/uL (0.0-1.1) Eosinophils # (Auto) 0.1 x10^3/uL (0.0-0.7) Basophils # (Auto) 0.1 x10^3/uL (0.0-0.2) Prothrombin Time 20.1 SEC (11.7-14.0) Prothromb Time International Ratio 1.7 (0.8-1.1) Sodium Level 143 mmol/L (136-145) Potassium Level 4.6 mmol/L (3.5-5.1) Chloride Level 102 mmol/L (98-107) Carbon Dioxide Level 41 mmol/L (21-32) Anion Gap 0 (6-14) Blood Urea Nitrogen 100 mg/dL (8-26) Creatinine 1.8 mg/dL (0.7-1.3) Estimated GFR (Cockcroft-Gault) 35.9 Glucose Level 137 mg/dL (70-99) Calcium Level 7.9 mg/dL (8.5-10.1) Glucose (Fingerstick) 166 mg/dL (70-99) Laboratory Tests Test 11/26/19 12:25 11/26/19 12:30 11/26/19 17:15 11/27/19 07:40 Glucose (Fingerstick) 247 mg/dL (70-99) 360 mg/dL (70-99) O2 Saturation 96 % (92-99) Arterial Blood pH 7.31 (7.35-7.45) Arterial Blood pCO2 at Patient Temp 72 mmHg (35-46) Arterial Blood pO2 at Patient Temp 87 mmHg (65-108) Arterial Blood HCO3 36 mmol/L (21-28) Arterial Blood Base Excess 8 mmol/L (-3-3) FiO2 28 White Blood Count 11.2 x10^3/uL (4.0-11.0) Red Blood Count 3.58 x10^6/uL (4.30-5.70) Hemoglobin 9.2 g/dL (13.0-17.5) Hematocrit 30.0 % (39.0-53.0) Mean Corpuscular Volume 84 fL (79-100) Mean Corpuscular Hemoglobin 26 pg (25-35) Mean Corpuscular Hemoglobin Concent 31 g/dL (31-37) Red Cell Distribution Width 16.3 % (11.5-14.5) Platelet Count 147 x10^3/uL (140-400) Neutrophils (%) (Auto) 73 % (31-73) Lymphocytes (%) (Auto) 15 % (24-48) Monocytes (%) (Auto) 10 % (0-9) Eosinophils (%) (Auto) 1 % (0-3) Basophils (%) (Auto) 1 % (0-3) Neutrophils # (Auto) 8.2 x10^3/uL (1.8-7.7) Lymphocytes # (Auto) 1.7 x10^3/uL (1.0-4.8) Monocytes # (Auto) 1.2 x10^3/uL (0.0-1.1) Eosinophils # (Auto) 0.1 x10^3/uL (0.0-0.7) Basophils # (Auto) 0.1 x10^3/uL (0.0-0.2) Prothrombin Time 20.1 SEC (11.7-14.0) Prothromb Time International Ratio 1.7 (0.8-1.1) Sodium Level 143 mmol/L (136-145) Potassium Level 4.6 mmol/L (3.5-5.1) Chloride Level 102 mmol/L (98-107) Carbon Dioxide Level 41 mmol/L (21-32) Anion Gap 0 (6-14) Blood Urea Nitrogen 100 mg/dL (8-26) Creatinine 1.8 mg/dL (0.7-1.3) Estimated GFR (Cockcroft-Gault) 35.9 Glucose Level 137 mg/dL (70-99) Calcium Level 7.9 mg/dL (8.5-10.1) Test 11/27/19 08:31 Glucose (Fingerstick) 166 mg/dL (70-99) Medications Active Scripts Medications Dose Route/Sig Max Daily Dose Days Date Category Januvia (Sitagliptin Phosphate) 100 Mg Tablet 1 Tab PO DAILY 11/23/19 Reported Bumetanide 1 Mg Tablet 1 Tab PO DAILY 11/23/19 Reported Warfarin Sodium 2 Mg Tablet 2 Mg PO DAILY 11/23/19 Reported Proair Hfa Inhaler (Albuterol Sulfate) 8.5 Gm Hfa.aer.ad 2 Puff IH PRN Q4-6HRS PRN 21 06/06/19 Reported Multivitamins (Multivitamin) 1 Each Capsule 1 Cap PO DAILY 30 06/06/19 Reported Ferrous Sulfate 325 Mg Tablet 1 Tab PO DAILY 06/06/19 Reported Singulair Tablet (Montelukast Sodium) 10 Mg Tablet 10 Mg PO HS 06/06/19 Reported Metolazone 5 Mg Tablet 5 Mg PO DAILY 06/06/19 Reported Glipizide 5 Mg Tablet 1 Tab PO BIDAC 06/06/19 Reported Preservision Areds Softgel (Vit A/Vit C/Vit E/Zinc/Copper) 1 Each Capsule 1 Each PO BID 05/26/17 Reported Coreg (Carvedilol) 3.125 Mg Tablet 1 Tab PO BID 12/08/15 Reported Duoneb 0.5-3(2.5) Mg/3 Ml (Albuterol/Ipratropium) 3 Ml Ampul.neb 3 Ml IH Q4HRS 02/13/15 Reported Amlodipine Besylate 10 Mg Tablet 5 Mg PO DAILY 01/21/15 Reported Simvastatin 10 Mg Tablet 1 Tab PO QHS 01/21/15 Reported Comments CXR IMPRESSION: 1. Stable right basilar opacities. 2. Stable small bilateral pleural effusions. Impression . IMPRESSION: 1. 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 2. Acute on chronic diastolic heart failure. EF 30% 3. Type 2 diabetes with neuropathy. 4. Chronic kidney disease. 5. Hypertension. 6. Obstructive sleep apnea. 7. Severe chronic obstructive pulmonary disease. 8. Electrolyte abnormalities. 9. Peripheral neuropathy. 10. History of prostate cancer, treated with radiation. 11 SARS-CoV-2 negative Plan . SPOKE WITH PT. His trilogy machine is nonfunctional. DME to re-asses I will have social director here get in touch with his home care company titrate O2 down to saturations close to 90%, 2-3 litres adequate Continue BiPAP qhs as tolerated ABG f/u improved. Continue diuresis per cardiology covid-19 testing, negative, nebulized treatment Continue steroids taper DVT/GI PPX d/w D/W RN Pt. is DNR, ROCK ORR MD Nov 27, 2019 10:59
--- NOTE | 2019-11-27 11:21 | NUR ---
CHERIE following. Spoke with RN and reviewed chart. Dr. Lyon requesting referral to [facility]. Pt agreeable to the referral but is not excited about going. CHERIE completed patient choice of vendor form. Spoke with therapy. Pt refused therapy today and they will try again later. CHERIE did phone and fax the referral to Vas[facility] at [facility]. Pt on and uses a Bipap at night. Pt on IV abx and COVID negative. CHERIE following. Addendum: 11/27/19 at 1151 by MARKUS CRESPO Spoke with pt who stated he changed his mind and he would work with PT today. Pt stated once his talbert is removed he will be able to work better with PT. RN was notified. Pt also spoke with [facility] ([phone]) and they are replacing the non-working trilogy at his home. Pt has 2 cousins and a friend that are supportive of him. CHERIE following.
[2019-11-27] MEDS: MULTIVITAMIN I-VITE TABLET. PO SCH (12:03)
[2019-11-27] MEDS: INSULIN GLARGINE SYRINGE. SQ SCH (12:09)
--- NOTE | 2019-11-27 12:37 | PDOC ---
JESSICA KAHN ZINC ETCHER 11/27/19 1237: CARDIO Progress Notes Date and Time Date of Service 11/27/19 Time of Evaluation 1235 Subjective Subjective: No Chest Pain, Other (LE edema, SOA improved improved) Vitals Vitals Vital Signs Date Time Temp Pulse Resp B/P (MAP) Pulse Ox O2 Delivery O2 Flow Rate FiO2 11/27/19 12:09 Nasal Cannula 2.0 11/27/19 09:41 66 141/85 11/27/19 08:11 94 11/27/19 04:00 22 11/26/19 18:53 98.7 98.7 Weight Weight [ ] Input and Output Intake and Output Intake and Output 11/27/19 07:00 Intake Total 1350 ml Output Total 2600 ml Balance -1250 ml Intake Oral 1350 ml Output Urine Total 2600 ml Laboratory Labs Laboratory Tests Test 11/26/19 17:15 11/27/19 07:40 11/27/19 08:31 11/27/19 12:00 Glucose (Fingerstick) 360 mg/dL (70-99) 166 mg/dL (70-99) 201 mg/dL (70-99) White Blood Count 11.2 x10^3/uL (4.0-11.0) Red Blood Count 3.58 x10^6/uL (4.30-5.70) Hemoglobin 9.2 g/dL (13.0-17.5) Hematocrit 30.0 % (39.0-53.0) Mean Corpuscular Volume 84 fL (79-100) Mean Corpuscular Hemoglobin 26 pg (25-35) Mean Corpuscular Hemoglobin Concent 31 g/dL (31-37) Red Cell Distribution Width 16.3 % (11.5-14.5) Platelet Count 147 x10^3/uL (140-400) Neutrophils (%) (Auto) 73 % (31-73) Lymphocytes (%) (Auto) 15 % (24-48) Monocytes (%) (Auto) 10 % (0-9) Eosinophils (%) (Auto) 1 % (0-3) Basophils (%) (Auto) 1 % (0-3) Neutrophils # (Auto) 8.2 x10^3/uL (1.8-7.7) Lymphocytes # (Auto) 1.7 x10^3/uL (1.0-4.8) Monocytes # (Auto) 1.2 x10^3/uL (0.0-1.1) Eosinophils # (Auto) 0.1 x10^3/uL (0.0-0.7) Basophils # (Auto) 0.1 x10^3/uL (0.0-0.2) Prothrombin Time 20.1 SEC (11.7-14.0) Prothromb Time International Ratio 1.7 (0.8-1.1) Sodium Level 143 mmol/L (136-145) Potassium Level 4.6 mmol/L (3.5-5.1) Chloride Level 102 mmol/L (98-107) Carbon Dioxide Level 41 mmol/L (21-32) Anion Gap 0 (6-14) Blood Urea Nitrogen 100 mg/dL (8-26) Creatinine 1.8 mg/dL (0.7-1.3) Estimated GFR (Cockcroft-Gault) 35.9 Glucose Level 137 mg/dL (70-99) Calcium Level 7.9 mg/dL (8.5-10.1) Physical Exam HEENT: Neck Supple W Full Motion Chest: Symmetric LUNGS: Other (diminished bases ) Heart: RRR, murmurs (2/6 systolic murmur ) Abdomen: Soft N/T Extremities: Other (s/p left arm amputation, 2-3+ bilateral LE edema, chronic venous insufficiency, development of significant, fluid-filled blister to right cabrera) Neurology: alert, oriented, follow commands Assessment Assessment 1. Acute on chronic hypoxic respiratory failure. COVID negative 2. Acute on chronic systolic and diastolic heart failure. Good UOP with IV Bumex 3. NICM: LVEF 30% 4. Chronic venous insufficiency 5. Hypertension; controlled 6. Diabetes, II 7. Chronic AFIB; AV paced. Chronic OAC with warfarin 8. SSS s/p PPM (Biotronik) 9. MARIVEL on CKD 10. COPD with chronic O2 use Recommendations Continued oral diuresis with metolazone and Bumex. Monitor renal function Pulm optimization Wound care consult Encourage LE elevation Supportive care Justicifation of Admission Dx: Justifications for Admission: Justification of Admission Dx: Yes ANISA DSOUZA MD 11/27/19 7290: CARDIO Progress Notes Plan Plan The patient was seen and interviewed as well as examined at the bedside. The chart was reviewed. The case was discussed. Agree with the plan of care. JESSICA KAHN APRN Nov 27, 2019 12:37 ANISA DSOUZA MD Nov 27, 2019 17:38
--- NOTE | 2019-11-27 14:28 | PDOC ---
PROGRESS NOTES Date of Service DATE: 11/27/19 TIME: 14:25 Subjective Subjective No new complaints. He does not like to use vascular boots as they are too warm. Objective Objective Vital Signs Date Time Temp Pulse Resp B/P (MAP) Pulse Ox O2 Delivery O2 Flow Rate FiO2 11/27/19 12:09 Nasal Cannula 2.0 11/27/19 09:41 66 141/85 11/27/19 08:11 94 11/27/19 04:00 22 11/26/19 18:53 98.7 98.7 Intake and Output 11/27/19 07:00 Intake Total 1350 ml Output Total 2600 ml Balance -1250 ml Intake Oral 1350 ml Output Urine Total 2600 ml Physical Exam Physical Exam He is walking with quad cane independently but with his absent left upper extremity he is moving too fast to sit on commode. I am not sure he can take intensity of acute in patient rehab with his CHF. Assessment Assessment Problems Medical Problems: (1) Chronic respiratory failure with hypoxia Status: Acute (2) COPD (chronic obstructive pulmonary disease) Status: Acute Plan Plan of Care To continue present care efforts as tolerated. Comment Review of Relevant I have reviewed the following items danika (where applicable) has been applied. Labs Laboratory Tests Test 11/25/19 16:54 11/25/19 20:53 11/26/19 03:10 11/26/19 08:02 Glucose (Fingerstick) 269 mg/dL (70-99) 211 mg/dL (70-99) 113 mg/dL (70-99) White Blood Count 7.4 x10^3/uL (4.0-11.0) Red Blood Count 3.15 x10^6/uL (4.30-5.70) Hemoglobin 8.1 g/dL (13.0-17.5) Hematocrit 26.5 % (39.0-53.0) Mean Corpuscular Volume 84 fL (79-100) Mean Corpuscular Hemoglobin 26 pg (25-35) Mean Corpuscular Hemoglobin Concent 31 g/dL (31-37) Red Cell Distribution Width 16.1 % (11.5-14.5) Platelet Count 128 x10^3/uL (140-400) Neutrophils (%) (Auto) 78 % (31-73) Lymphocytes (%) (Auto) 12 % (24-48) Monocytes (%) (Auto) 9 % (0-9) Eosinophils (%) (Auto) 0 % (0-3) Basophils (%) (Auto) 0 % (0-3) Neutrophils # (Auto) 5.8 x10^3/uL (1.8-7.7) Lymphocytes # (Auto) 0.9 x10^3/uL (1.0-4.8) Monocytes # (Auto) 0.7 x10^3/uL (0.0-1.1) Eosinophils # (Auto) 0.0 x10^3/uL (0.0-0.7) Basophils # (Auto) 0.0 x10^3/uL (0.0-0.2) Sodium Level 143 mmol/L (136-145) Potassium Level 4.5 mmol/L (3.5-5.1) Chloride Level 105 mmol/L (98-107) Carbon Dioxide Level 40 mmol/L (21-32) Anion Gap (6-14) Blood Urea Nitrogen 98 mg/dL (8-26) Creatinine 1.5 mg/dL (0.7-1.3) Estimated GFR (Cockcroft-Gault) 44.3 Glucose Level 81 mg/dL (70-99) Calcium Level 7.9 mg/dL (8.5-10.1) Test 11/26/19 12:25 11/26/19 12:30 11/26/19 17:15 11/27/19 07:40 Glucose (Fingerstick) 247 mg/dL (70-99) 360 mg/dL (70-99) O2 Saturation 96 % (92-99) Arterial Blood pH 7.31 (7.35-7.45) Arterial Blood pCO2 at Patient Temp 72 mmHg (35-46) Arterial Blood pO2 at Patient Temp 87 mmHg (65-108) Arterial Blood HCO3 36 mmol/L (21-28) Arterial Blood Base Excess 8 mmol/L (-3-3) FiO2 28 White Blood Count 11.2 x10^3/uL (4.0-11.0) Red Blood Count 3.58 x10^6/uL (4.30-5.70) Hemoglobin 9.2 g/dL (13.0-17.5) Hematocrit 30.0 % (39.0-53.0) Mean Corpuscular Volume 84 fL (79-100) Mean Corpuscular Hemoglobin 26 pg (25-35) Mean Corpuscular Hemoglobin Concent 31 g/dL (31-37) Red Cell Distribution Width 16.3 % (11.5-14.5) Platelet Count 147 x10^3/uL (140-400) Neutrophils (%) (Auto) 73 % (31-73) Lymphocytes (%) (Auto) 15 % (24-48) Monocytes (%) (Auto) 10 % (0-9) Eosinophils (%) (Auto) 1 % (0-3) Basophils (%) (Auto) 1 % (0-3) Neutrophils # (Auto) 8.2 x10^3/uL (1.8-7.7) Lymphocytes # (Auto) 1.7 x10^3/uL (1.0-4.8) Monocytes # (Auto) 1.2 x10^3/uL (0.0-1.1) Eosinophils # (Auto) 0.1 x10^3/uL (0.0-0.7) Basophils # (Auto) 0.1 x10^3/uL (0.0-0.2) Prothrombin Time 20.1 SEC (11.7-14.0) Prothromb Time International Ratio 1.7 (0.8-1.1) Sodium Level 143 mmol/L (136-145) Potassium Level 4.6 mmol/L (3.5-5.1) Chloride Level 102 mmol/L (98-107) Carbon Dioxide Level 41 mmol/L (21-32) Anion Gap 0 (6-14) Blood Urea Nitrogen 100 mg/dL (8-26) Creatinine 1.8 mg/dL (0.7-1.3) Estimated GFR (Cockcroft-Gault) 35.9 Glucose Level 137 mg/dL (70-99) Calcium Level 7.9 mg/dL (8.5-10.1) Test 11/27/19 08:31 11/27/19 12:00 Glucose (Fingerstick) 166 mg/dL (70-99) 201 mg/dL (70-99) Laboratory Tests Test 11/26/19 17:15 11/27/19 07:40 11/27/19 08:31 11/27/19 12:00 Glucose (Fingerstick) 360 mg/dL (70-99) 166 mg/dL (70-99) 201 mg/dL (70-99) White Blood Count 11.2 x10^3/uL (4.0-11.0) Red Blood Count 3.58 x10^6/uL (4.30-5.70) Hemoglobin 9.2 g/dL (13.0-17.5) Hematocrit 30.0 % (39.0-53.0) Mean Corpuscular Volume 84 fL (79-100) Mean Corpuscular Hemoglobin 26 pg (25-35) Mean Corpuscular Hemoglobin Concent 31 g/dL (31-37) Red Cell Distribution Width 16.3 % (11.5-14.5) Platelet Count 147 x10^3/uL (140-400) Neutrophils (%) (Auto) 73 % (31-73) Lymphocytes (%) (Auto) 15 % (24-48) Monocytes (%) (Auto) 10 % (0-9) Eosinophils (%) (Auto) 1 % (0-3) Basophils (%) (Auto) 1 % (0-3) Neutrophils # (Auto) 8.2 x10^3/uL (1.8-7.7) Lymphocytes # (Auto) 1.7 x10^3/uL (1.0-4.8) Monocytes # (Auto) 1.2 x10^3/uL (0.0-1.1) Eosinophils # (Auto) 0.1 x10^3/uL (0.0-0.7) Basophils # (Auto) 0.1 x10^3/uL (0.0-0.2) Prothrombin Time 20.1 SEC (11.7-14.0) Prothromb Time International Ratio 1.7 (0.8-1.1) Sodium Level 143 mmol/L (136-145) Potassium Level 4.6 mmol/L (3.5-5.1) Chloride Level 102 mmol/L (98-107) Carbon Dioxide Level 41 mmol/L (21-32) Anion Gap 0 (6-14) Blood Urea Nitrogen 100 mg/dL (8-26) Creatinine 1.8 mg/dL (0.7-1.3) Estimated GFR (Cockcroft-Gault) 35.9 Glucose Level 137 mg/dL (70-99) Calcium Level 7.9 mg/dL (8.5-10.1) Medications Current Medications Ondansetron HCl (Zofran) 4 mg PRN Q8HRS PRN IV NAUSEA/VOMITING 1ST CHOICE; Start 11/23/19 at 01:45; Stop 11/24/19 at 01:44; Status DC Acetaminophen (Tylenol) 650 mg PRN Q4HRS PRN PO FEVER > 100.3'F; Start 11/23/19 at 01:45; Stop 11/24/19 at 01:44; Status DC Lorazepam (Ativan Inj) 0.5 mg 1X PRN PRN IV ANXIETY / AGITATION Last administered on 11/23/19at 17:11; Start 11/23/19 at 05:00; Stop 11/24/19 at 11:23; Status DC Lorazepam (Ativan Inj) 0.5 mg PRN BID PRN IV ANXIETY / AGITATION Last administered on 11/25/19at 20:37; Start 11/23/19 at 05:45 Dextrose (Dextrose 50%-Water Syringe) 12.5 gm PRN Q15MIN PRN IV SEE COMMENTS; Start 11/23/19 at 06:00 Albuterol Sulfate (Ventolin Neb Soln) 2.5 mg PRN Q4HRS PRN NEB wheezing; Start 11/23/19 at 06:15; Stop 11/24/19 at 10:52; Status DC Amlodipine Besylate (Norvasc) 5 mg DAILY PO Last administered on 11/27/19 09:41; Start 11/23/19 at 09:00 Bumetanide (Bumex) 1 mg DAILY PO Last administered on 11/27/19at 09:39; Start 11/23/19 at 09:00 Carvedilol (Coreg) 3.125 mg BIDWMEALS PO Last administered on 11/27/19 09:41; Start 11/23/19 at 08:00 Ferrous Sulfate (Feosol) 325 mg DAILY PO Last administered on 11/27/19 09:41; Start 11/23/19 at 09:00 Glipizide (Glucotrol) 5 mg BIDAC PO Last administered on 11/27/19 09:41; Start 11/23/19 at 07:30 Albuterol/ Ipratropium (Duoneb) 3 ml Q4HRS W/A IH ; Start 11/23/19 at 07:00; Stop 11/24/19 at 10:52; Status DC Montelukast Sodium (Singulair) 10 mg HS PO Last administered on 11/25/19at 20:37; Start 11/23/19 at 21:00 Simvastatin (Zocor) 10 mg QHS PO Last administered on 11/23/19at 21:45; Start 11/23/19 at 21:00; Stop 11/24/19 at 11:03; Status DC Warfarin Sodium (Coumadin) 2 mg DAILY PO ; Start 11/23/19 at 09:00; Stop 11/23/19 at 11:48; Status DC Metolazone (Zaroxolyn) 5 mg DAILY PO Last administered on 11/27/19 09:39; Start 11/23/19 at 09:00 Multivitamins (Thera M Plus) 1 tab DAILY PO Last administered on 11/27/19 09:39; Start 11/23/19 at 09:00 Linagliptin (Tradjenta) 5 mg DAILY PO Last administered on 11/27/19 09:41; Start 11/23/19 at 09:00 Multivitamins/ Minerals (I-Maxim) 1 tab DAILY PO Last administered on 11/27/19 12:03; Start 11/23/19 at 09:00 Warfarin Sodium (Coumadin Per Physician) 1 each PRN DAILY PRN MC SEE COMMENTS Last administered on 11/25/19at 10:01; Start 11/23/19 at 07:15 Warfarin Sodium (Coumadin) 2 mg DAILY16 PO Last administered on 11/26/19at 16:07; Start 11/23/19 at 16:00 Insulin Human Lispro (HumaLOG) 0-8 UNITS BIDBFRMEAL SQ ; Start 11/23/19 at 16:30; Status UNV Insulin Human Lispro (HumaLOG) 0-8 UNITS BIDBFRMEAL SQ Last administered on 11/27/19at 12:11; Start 11/23/19 at 16:30 Hydralazine HCl (Apresoline Inj) 10 mg PRN Q4HRS PRN IVP FOR SBP > 160 Last administered on 11/24/19at 10:04; Start 11/24/19 at 10:00 Albuterol Sulfate (Ventolin Hfa) 1 puff Q4HRS W/A INH ; Start 11/24/19 at 14:00; Stop 11/24/19 at 15:07; Status DC Albuterol Sulfate (Ventolin Hfa) 1 puff PRN QID PRN INH SOA Last administered on 11/24/19at 11:46; Start 11/24/19 at 11:00 Methylprednisolone Sodium Succinate (SOLU-Medrol 40MG VIAL) 60 mg DAILY IV Last administered on 11/26/19at 08:57; Start 11/24/19 at 11:00; Stop 11/26/19 at 11:49; Status DC Ceftriaxone Sodium (Rocephin) 1 gm Q24H IVP Last administered on 11/26/19at 12:22; Start 11/24/19 at 13:00 Azithromycin 250 ml @ 250 mls/hr DAILY IV ; Start 11/24/19 at 11:00; Stop 11/24/19 at 11:14; Status DC Azithromycin 500 mg/Sodium Chloride 250 ml @ 250 mls/hr Q24H IV Last administered on 11/26/19at 12:23; Start 11/24/19 at 13:00 Albuterol/ Ipratropium (Duoneb) 3 ml RTQID NEB Last administered on 11/27/19at 12:08; Start 11/24/19 at 16:00 Insulin Glargine (Lantus Syringe) 6 unit DAILY10 SQ Last administered on 11/27/19at 12:09; Start 11/25/19 at 10:00 Lactobacillus Rhamnosus (Culturelle) 1 cap BID PO Last administered on 11/27/19at 09:39; Start 11/25/19 at 13:00 Prednisone (Prednisone) 30 mg DAILY PO Last administered on 11/27/19at 09:40; Start 11/27/19 at 09:00 Bumetanide (Bumex) 1 mg 1X ONCE IV Last administered on 11/26/19at 15:04; Start 11/26/19 at 14:00; Stop 11/26/19 at 14:01; Status DC Quetiapine Fumarate (SEROquel) 25 mg 1X PRN PRN PO AGITATION; Start 11/26/19 at 23:15; Stop 11/26/19 at 23:10; Status DC Quetiapine Fumarate (SEROquel) 12.5 mg 1X PRN PRN PO AGITATION; Start 11/26/19 at 23:15 Olanzapine (ZyPREXA ZYDIS) 5 mg 1X ONCE PO ; Start 11/27/19 at 01:00; Stop 11/27/19 at 01:01; Status DC Active Scripts Active Reported Januvia (Sitagliptin Phosphate) 100 Mg Tablet 1 Tab PO DAILY Bumetanide 1 Mg Tablet 1 Tab PO DAILY Warfarin Sodium 2 Mg Tablet 2 Mg PO DAILY Proair Hfa Inhaler (Albuterol Sulfate) 8.5 Gm Hfa.aer.ad 2 Puff IH PRN Q4-6HRS PRN 21 Days Multivitamins (Multivitamin) 1 Each Capsule 1 Cap PO DAILY 30 Days Ferrous Sulfate 325 Mg Tablet 1 Tab PO DAILY Singulair Tablet (Montelukast Sodium) 10 Mg Tablet 10 Mg PO HS Metolazone 5 Mg Tablet 5 Mg PO DAILY Glipizide 5 Mg Tablet 1 Tab PO BIDAC Preservision Areds Softgel (Vit A/Vit C/Vit E/Zinc/Copper) 1 Each Capsule 1 Each PO BID Coreg (Carvedilol) 3.125 Mg Tablet 1 Tab PO BID Duoneb 0.5-3(2.5) Mg/3 Ml (Albuterol/Ipratropium) 3 Ml Ampul.neb 3 Ml IH Q4HRS Amlodipine Besylate 10 Mg Tablet 5 Mg PO DAILY Simvastatin 10 Mg Tablet 1 Tab PO QHS Vitals/I & O Vital Sign - Last 24 Hours 11/26/19 11/26/19 11/26/19 11/26/19 15:00 15:47 17:07 18:53 Temp 98.9 98.7 98.9 98.7 Pulse 60 60 66 Resp 20 18 B/P (MAP) 131/51 (77) 131/51 141/85 (103) Pulse Ox 97 97 94 O2 Delivery Nasal Cannula Nasal Cannula Nasal Cannula O2 Flow Rate 3.0 3.0 3.0 11/26/19 11/26/19 11/26/19 11/27/19 19:13 19:20 20:00 04:00 Resp 22 B/P (MAP) Pulse Ox 85 94 93 O2 Delivery Nasal Cannula BiPAP/CPAP Nasal Cannula Nasal Cannula O2 Flow Rate 2.0 2.0 2.0 11/27/19 11/27/19 11/27/19 11/27/19 08:11 09:41 09:41 12:09 Pulse 66 66 B/P (MAP) 141/85 141/85 Pulse Ox 94 O2 Delivery Nasal Cannula Nasal Cannula O2 Flow Rate 2.0 2.0 Intake and Output 11/26/19 11/26/19 11/27/19 15:00 23:00 07:00 Intake Total 550 ml 600 ml 200 ml Output Total 1850 ml 750 ml Balance 550 ml -1250 ml -550 ml Justifications for Admission Other Justification CARMEN KELLY MD Nov 27, 2019 14:28
[2019-11-27 15:00] VITALS: BP 147/93
[2019-11-27] MEDS: AZITHROMYCIN 500 MG in IV NORMAL SALINE 250ML 250 ML IV SCH (15:18)
[2019-11-27] MEDS: cefTRIAXone IV Push 1 GM VIAL. IVP SCH (15:26)
[2019-11-27] MEDS: WARFARIN 2 MG TABLET. PO SCH (17:04)
[2019-11-27] MEDS ORDERED: INSULIN LISPRO 300 UNITS/3 ML VIAL. SQ SCH (17:30)
[2019-11-27] MEDS ORDERED: DEXTROSE 50% 25 GM / 50ML DISP.SYRIN. IV PRN (17:30)
--- NOTE | 2019-11-27 17:48 | NUR ---
Recieved one time order for 10u insulin subq for blood sugar of 371. Sliding scale increased from Bid to Tid with meals. Pt moving to room 530. Report called to Lisandra FONTENOT.
[2019-11-27 19:00] VITALS: BP 166/49
[2019-11-27] MEDS: MONTELUKAST SODIUM 10 MG TABLET. PO SCH (22:19)
[2019-11-27 23:00] VITALS: BP 184/58
[2019-11-28 03:00] VITALS: BP 186/76
--- NOTE | 2019-11-28 06:48 | NUR ---
Perez catheter Discontinued Per MD order at this time, Patient tolerated procedure well.
[2019-11-28 07:00] VITALS: BP 180/100
[2019-11-28 07:27] LABS: CALCIUM 8.3 mg/dL (8.5-10.1); CREATININE 1.5 mg/dL (0.7-1.3); GFR 44.3; POTASSIUM 4.2 mmol/L (3.5-5.1)
[2019-11-28] MEDS: IPRATRPIUM/ALBUTEROL 0.5/2.5MG 3 ML NEBU. NEB SCH ×3 (08:15→15:31)
[2019-11-28] MEDS: LACTOBACILLUS RHAMNOSUS GG 1 CAPSULE. PO SCH (09:08)
[2019-11-28] MEDS: predniSONE 20 MG TABLET PO SCH (09:08)
[2019-11-28] MEDS: glipiZIDE 5 MG TABLET PO SCH ×2 (09:08→16:00)
[2019-11-28] MEDS: LINAGLIPTIN 5 MG TABLET PO SCH (09:08)
[2019-11-28] MEDS: MULTIVITAMIN I-VITE TABLET. PO SCH (09:08)
[2019-11-28] MEDS: FERROUS SULFATE 325 MG TABLET. PO SCH (09:08)
[2019-11-28] MEDS: BUMETANIDE 1 MG TABLET. PO SCH (09:08)
[2019-11-28] MEDS: MULTIVITAMIN with MINERAL TABLET. PO SCH (09:08)
[2019-11-28] MEDS: CARVEDILOL 3.125 MG TABLET. PO SCH (09:09)
[2019-11-28] MEDS: metOLazone 2.5 MG TABLET PO SCH (09:09)
[2019-11-28] MEDS: amLODIPine BESYLATE 5 MG TABLET PO SCH (09:09)
--- NOTE | 2019-11-28 09:09 | PDOC ---
PROGRESS NOTES Date of Service DATE: 11/28/19 TIME: 09:07 Subjective Subjective No new complaints. Objective Objective Vital Signs Date Time Temp Pulse Resp B/P (MAP) Pulse Ox O2 Delivery O2 Flow Rate FiO2 11/28/19 08:17 92 Nasal Cannula 2.0 11/28/19 07:00 98.4 62 20 180/100 (126) 98.4 Intake and Output 11/28/19 07:00 Intake Total 1740 ml Output Total 3200 ml Balance -1460 ml Intake Oral 1740 ml Output Urine Total 3200 ml # Bowel Movements 1 Physical Exam Physical Exam He is alert,sitting in bed side chair and using oxygen by nasal canula and he continues with lower extremity edema. Assessment Assessment Problems Medical Problems: (1) Chronic respiratory failure with hypoxia Status: Acute (2) COPD (chronic obstructive pulmonary disease) Status: Acute Plan Plan of Care Agree with plans for rehab transfer when medically stable. Comment Review of Relevant I have reviewed the following items danika (where applicable) has been applied. Labs Laboratory Tests Test 11/26/19 12:25 11/26/19 12:30 11/26/19 17:15 11/27/19 07:40 Glucose (Fingerstick) 247 mg/dL (70-99) 360 mg/dL (70-99) O2 Saturation 96 % (92-99) Arterial Blood pH 7.31 (7.35-7.45) Arterial Blood pCO2 at Patient Temp 72 mmHg (35-46) Arterial Blood pO2 at Patient Temp 87 mmHg (65-108) Arterial Blood HCO3 36 mmol/L (21-28) Arterial Blood Base Excess 8 mmol/L (-3-3) FiO2 28 White Blood Count 11.2 x10^3/uL (4.0-11.0) Red Blood Count 3.58 x10^6/uL (4.30-5.70) Hemoglobin 9.2 g/dL (13.0-17.5) Hematocrit 30.0 % (39.0-53.0) Mean Corpuscular Volume 84 fL (79-100) Mean Corpuscular Hemoglobin 26 pg (25-35) Mean Corpuscular Hemoglobin Concent 31 g/dL (31-37) Red Cell Distribution Width 16.3 % (11.5-14.5) Platelet Count 147 x10^3/uL (140-400) Neutrophils (%) (Auto) 73 % (31-73) Lymphocytes (%) (Auto) 15 % (24-48) Monocytes (%) (Auto) 10 % (0-9) Eosinophils (%) (Auto) 1 % (0-3) Basophils (%) (Auto) 1 % (0-3) Neutrophils # (Auto) 8.2 x10^3/uL (1.8-7.7) Lymphocytes # (Auto) 1.7 x10^3/uL (1.0-4.8) Monocytes # (Auto) 1.2 x10^3/uL (0.0-1.1) Eosinophils # (Auto) 0.1 x10^3/uL (0.0-0.7) Basophils # (Auto) 0.1 x10^3/uL (0.0-0.2) Prothrombin Time 20.1 SEC (11.7-14.0) Prothromb Time International Ratio 1.7 (0.8-1.1) Sodium Level 143 mmol/L (136-145) Potassium Level 4.6 mmol/L (3.5-5.1) Chloride Level 102 mmol/L (98-107) Carbon Dioxide Level 41 mmol/L (21-32) Anion Gap 0 (6-14) Blood Urea Nitrogen 100 mg/dL (8-26) Creatinine 1.8 mg/dL (0.7-1.3) Estimated GFR (Cockcroft-Gault) 35.9 Glucose Level 137 mg/dL (70-99) Calcium Level 7.9 mg/dL (8.5-10.1) Test 11/27/19 08:31 11/27/19 12:00 11/27/19 17:05 11/27/19 20:54 Glucose (Fingerstick) 166 mg/dL (70-99) 201 mg/dL (70-99) 371 mg/dL (70-99) 241 mg/dL (70-99) Test 11/28/19 06:40 11/28/19 08:06 Sodium Level 145 mmol/L (136-145) Potassium Level 4.2 mmol/L (3.5-5.1) Chloride Level 102 mmol/L (98-107) Carbon Dioxide Level 39 mmol/L (21-32) Anion Gap 4 (6-14) Blood Urea Nitrogen 91 mg/dL (8-26) Creatinine 1.5 mg/dL (0.7-1.3) Estimated GFR (Cockcroft-Gault) 44.3 Glucose Level 122 mg/dL (70-99) Calcium Level 8.3 mg/dL (8.5-10.1) Glucose (Fingerstick) 153 mg/dL (70-99) Laboratory Tests Test 11/27/19 12:00 11/27/19 17:05 11/27/19 20:54 11/28/19 06:40 Glucose (Fingerstick) 201 mg/dL (70-99) 371 mg/dL (70-99) 241 mg/dL (70-99) Sodium Level 145 mmol/L (136-145) Potassium Level 4.2 mmol/L (3.5-5.1) Chloride Level 102 mmol/L (98-107) Carbon Dioxide Level 39 mmol/L (21-32) Anion Gap 4 (6-14) Blood Urea Nitrogen 91 mg/dL (8-26) Creatinine 1.5 mg/dL (0.7-1.3) Estimated GFR (Cockcroft-Gault) 44.3 Glucose Level 122 mg/dL (70-99) Calcium Level 8.3 mg/dL (8.5-10.1) Test 11/28/19 08:06 Glucose (Fingerstick) 153 mg/dL (70-99) Medications Current Medications Ondansetron HCl (Zofran) 4 mg PRN Q8HRS PRN IV NAUSEA/VOMITING 1ST CHOICE; Start 11/23/19 at 01:45; Stop 11/24/19 at 01:44; Status DC Acetaminophen (Tylenol) 650 mg PRN Q4HRS PRN PO FEVER > 100.3'F; Start 11/23/19 at 01:45; Stop 11/24/19 at 01:44; Status DC Lorazepam (Ativan Inj) 0.5 mg 1X PRN PRN IV ANXIETY / AGITATION Last administered on 11/23/19at 17:11; Start 11/23/19 at 05:00; Stop 11/24/19 at 11:23; Status DC Lorazepam (Ativan Inj) 0.5 mg PRN BID PRN IV ANXIETY / AGITATION Last administered on 11/25/19at 20:37; Start 11/23/19 at 05:45 Dextrose (Dextrose 50%-Water Syringe) 12.5 gm PRN Q15MIN PRN IV SEE COMMENTS; Start 11/23/19 at 06:00 Albuterol Sulfate (Ventolin Neb Soln) 2.5 mg PRN Q4HRS PRN NEB wheezing; Start 11/23/19 at 06:15; Stop 11/24/19 at 10:52; Status DC Amlodipine Besylate (Norvasc) 5 mg DAILY PO Last administered on 11/27/19at 09:41; Start 11/23/19 at 09:00 Bumetanide (Bumex) 1 mg DAILY PO Last administered on 11/27/19 09:39; Start 11/23/19 at 09:00 Carvedilol (Coreg) 3.125 mg BIDWMEALS PO Last administered on 11/27/19 17:03; Start 11/23/19 at 08:00 Ferrous Sulfate (Feosol) 325 mg DAILY PO Last administered on 11/27/19at 09:41; Start 11/23/19 at 09:00 Glipizide (Glucotrol) 5 mg BIDAC PO Last administered on 11/27/19at 17:03; Start 11/23/19 at 07:30 Albuterol/ Ipratropium (Duoneb) 3 ml Q4HRS W/A IH ; Start 11/23/19 at 07:00; Stop 11/24/19 at 10:52; Status DC Montelukast Sodium (Singulair) 10 mg HS PO Last administered on 11/27/19at 22:19; Start 11/23/19 at 21:00 Simvastatin (Zocor) 10 mg QHS PO Last administered on 11/23/19at 21:45; Start 11/23/19 at 21:00; Stop 11/24/19 at 11:03; Status DC Warfarin Sodium (Coumadin) 2 mg DAILY PO ; Start 11/23/19 at 09:00; Stop 11/23/19 at 11:48; Status DC Metolazone (Zaroxolyn) 5 mg DAILY PO Last administered on 11/27/19at 09:39; Start 11/23/19 at 09:00 Multivitamins (Thera M Plus) 1 tab DAILY PO Last administered on 9/2/20at 09:39; Start 11/23/19 at 09:00 Linagliptin (Tradjenta) 5 mg DAILY PO Last administered on 11/27/19at 09:41; Start 11/23/19 at 09:00 Multivitamins/ Minerals (I-Maxim) 1 tab DAILY PO Last administered on 11/27/19at 12:03; Start 11/23/19 at 09:00 Warfarin Sodium (Coumadin Per Physician) 1 each PRN DAILY PRN MC SEE COMMENTS Last administered on 11/27/19at 14:59; Start 11/23/19 at 07:15 Warfarin Sodium (Coumadin) 2 mg DAILY16 PO Last administered on 11/27/19at 17:04; Start 11/23/19 at 16:00 Insulin Human Lispro (HumaLOG) 0-8 UNITS BIDBFRMEAL SQ ; Start 11/23/19 at 16:30; Status UNV Insulin Human Lispro (HumaLOG) 0-8 UNITS BIDBFRMEAL SQ Last administered on 11/27/19at 12:11; Start 11/23/19 at 16:30; Stop 11/27/19 at 17:28; Status DC Hydralazine HCl (Apresoline Inj) 10 mg PRN Q4HRS PRN IVP FOR SBP > 160 Last administered on 11/24/19at 10:04; Start 11/24/19 at 10:00 Albuterol Sulfate (Ventolin Hfa) 1 puff Q4HRS W/A INH ; Start 11/24/19 at 14:00; Stop 11/24/19 at 15:07; Status DC Albuterol Sulfate (Ventolin Hfa) 1 puff PRN QID PRN INH SOA Last administered o n 11/24/19at 11:46; Start 11/24/19 at 11:00 Methylprednisolone Sodium Succinate (SOLU-Medrol 40MG VIAL) 60 mg DAILY IV Last administered on 11/26/19at 08:57; Start 11/24/19 at 11:00; Stop 11/26/19 at 11:49; Status DC Ceftriaxone Sodium (Rocephin) 1 gm Q24H IVP Last administered on 11/27/19at 15:26; Start 11/24/19 at 13:00 Azithromycin 250 ml @ 250 mls/hr DAILY IV ; Start 11/24/19 at 11:00; Stop 11/24/19 at 11:14; Status DC Azithromycin 500 mg/Sodium Chloride 250 ml @ 250 mls/hr Q24H IV Last administered on 11/27/19at 15:18; Start 11/24/19 at 13:00 Albuterol/ Ipratropium (Duoneb) 3 ml RTQID NEB Last administered on 11/28/19at 08:15; Start 11/24/19 at 16:00 Insulin Glargine (Lantus Syringe) 6 unit DAILY10 SQ Last administered on 11/27/19at 12:09; Start 11/25/19 at 10:00 Lactobacillus Rhamnosus (Culturelle) 1 cap BID PO Last administered on 11/27/19at 22:19; Start 11/25/19 at 13:00 Prednisone (Prednisone) 30 mg DAILY PO Last administered on 11/27/19at 09:40; Start 11/27/19 at 09:00 Bumetanide (Bumex) 1 mg 1X ONCE IV Last administered on 11/26/19at 15:04; Start 11/26/19 at 14:00; Stop 11/26/19 at 14:01; Status DC Quetiapine Fumarate (SEROquel) 25 mg 1X PRN PRN PO AGITATION; Start 11/26/19 at 23:15; Stop 11/26/19 at 23:10; Status DC Quetiapine Fumarate (SEROquel) 12.5 mg 1X PRN PRN PO AGITATION Last administered on 11/27/19at 22:19; Start 11/26/19 at 23:15 Olanzapine (ZyPREXA ZYDIS) 5 mg 1X ONCE PO ; Start 11/27/19 at 01:00; Stop 11/27/19 at 01:01; Status DC Insulin Human Lispro (HumaLOG) 0-9 UNITS TIDWMEALS SQ ; Start 11/28/19 at 08:00 Dextrose (Dextrose 50%-Water Syringe) 12.5 gm PRN Q15MIN PRN IV SEE COMMENTS; Start 11/27/19 at 17:30 Insulin Human Lispro (HumaLOG) 10 units 1X SQ ; Start 11/27/19 at 17:30 Active Scripts Active Reported Januvia (Sitagliptin Phosphate) 100 Mg Tablet 1 Tab PO DAILY Bumetanide 1 Mg Tablet 1 Tab PO DAILY Warfarin Sodium 2 Mg Tablet 2 Mg PO DAILY Proair Hfa Inhaler (Albuterol Sulfate) 8.5 Gm Hfa.aer.ad 2 Puff IH PRN Q4-6HRS PRN 21 Days Multivitamins (Multivitamin) 1 Each Capsule 1 Cap PO DAILY 30 Days Ferrous Sulfate 325 Mg Tablet 1 Tab PO DAILY Singulair Tablet (Montelukast Sodium) 10 Mg Tablet 10 Mg PO HS Metolazone 5 Mg Tablet 5 Mg PO DAILY Glipizide 5 Mg Tablet 1 Tab PO BIDAC Preservision Areds Softgel (Vit A/Vit C/Vit E/Zinc/Copper) 1 Each Capsule 1 Each PO BID Coreg (Carvedilol) 3.125 Mg Tablet 1 Tab PO BID Duoneb 0.5-3(2.5) Mg/3 Ml (Albuterol/Ipratropium) 3 Ml Ampul.neb 3 Ml IH Q4HRS Amlodipine Besylate 10 Mg Tablet 5 Mg PO DAILY Simvastatin 10 Mg Tablet 1 Tab PO QHS Vitals/I & O Vital Sign - Last 24 Hours 11/27/19 11/27/19 11/27/19 11/27/19 09:41 09:41 12:09 15:00 Temp 98.7 98.7 Pulse 66 66 82 B/P (MAP) 141/85 141/85 147/93 (111) Pulse Ox 93 O2 Delivery Nasal Cannula Nasal Cannula O2 Flow Rate 2.0 2.0 11/27/19 11/27/19 11/27/19 11/27/19 15:42 17:03 19:00 20:00 Temp 97.9 97.9 Pulse 82 64 Resp 18 B/P (MAP) 147/93 166/49 (88) Pulse Ox 91 O2 Delivery Nasal Cannula Nasal Cannula O2 Flow Rate 2.0 2.0 11/27/19 11/27/19 11/28/19 11/28/19 20:05 23:00 03:00 07:00 Temp 98.4 98.5 98.4 98.4 98.5 98.4 Pulse 65 69 62 Resp 18 16 20 B/P (MAP) 184/58 (100) 186/76 (112) 180/100 (126) Pulse Ox 91 98 94 O2 Delivery Nasal Cannula O2 Flow Rate 2.0 11/28/19 08:17 Pulse Ox 92 O2 Delivery Nasal Cannula O2 Flow Rate 2.0 Intake and Output 11/27/19 11/27/19 11/28/19 15:00 23:00 07:00 Intake Total 820 ml 320 ml 600 ml Output Total 1500 ml 300 ml 1400 ml Balance -680 ml 20 ml -800 ml Justifications for Admission Other Justification CARMEN KELLY MD Nov 28, 2019 09:09
[2019-11-28] MEDS: INSULIN GLARGINE SYRINGE. SQ SCH (09:13)
[2019-11-28] MEDS: INSULIN LISPRO 300 UNITS/3 ML VIAL. SQ SCH ×2 (09:13→12:18)
--- NOTE | 2019-11-28 09:30 | PDOC ---
PULMONARY PROGRESS NOTES DATE: 11/28/19 TIME: 09:29 Subjective Patient awake alert off of BiPAP currently on 2 L of oxygen Had a good night Vitals Vital Signs Date Time Temp Pulse Resp B/P (MAP) Pulse Ox O2 Delivery O2 Flow Rate FiO2 11/28/19 09:09 62 180/100 11/28/19 08:17 92 Nasal Cannula 2.0 11/28/19 07:00 98.4 20 98.4 ROS: No Nausea, No Chest Pain, No Abdominal Pain, No Increase Cough General: Alert, No acute distress Lungs: Clear Cardiovascular: S1, S2 Abdomen: Soft Neuro Exam: Alert Extremities: Other (Previous amputation left shoulder, edema) Skin: Warm, Dry Labs Laboratory Tests Test 11/26/19 12:25 11/26/19 12:30 11/26/19 17:15 11/27/19 07:40 Glucose (Fingerstick) 247 mg/dL (70-99) 360 mg/dL (70-99) O2 Saturation 96 % (92-99) Arterial Blood pH 7.31 (7.35-7.45) Arterial Blood pCO2 at Patient Temp 72 mmHg (35-46) Arterial Blood pO2 at Patient Temp 87 mmHg (65-108) Arterial Blood HCO3 36 mmol/L (21-28) Arterial Blood Base Excess 8 mmol/L (-3-3) FiO2 28 White Blood Count 11.2 x10^3/uL (4.0-11.0) Red Blood Count 3.58 x10^6/uL (4.30-5.70) Hemoglobin 9.2 g/dL (13.0-17.5) Hematocrit 30.0 % (39.0-53.0) Mean Corpuscular Volume 84 fL (79-100) Mean Corpuscular Hemoglobin 26 pg (25-35) Mean Corpuscular Hemoglobin Concent 31 g/dL (31-37) Red Cell Distribution Width 16.3 % (11.5-14.5) Platelet Count 147 x10^3/uL (140-400) Neutrophils (%) (Auto) 73 % (31-73) Lymphocytes (%) (Auto) 15 % (24-48) Monocytes (%) (Auto) 10 % (0-9) Eosinophils (%) (Auto) 1 % (0-3) Basophils (%) (Auto) 1 % (0-3) Neutrophils # (Auto) 8.2 x10^3/uL (1.8-7.7) Lymphocytes # (Auto) 1.7 x10^3/uL (1.0-4.8) Monocytes # (Auto) 1.2 x10^3/uL (0.0-1.1) Eosinophils # (Auto) 0.1 x10^3/uL (0.0-0.7) Basophils # (Auto) 0.1 x10^3/uL (0.0-0.2) Prothrombin Time 20.1 SEC (11.7-14.0) Prothromb Time International Ratio 1.7 (0.8-1.1) Sodium Level 143 mmol/L (136-145) Potassium Level 4.6 mmol/L (3.5-5.1) Chloride Level 102 mmol/L (98-107) Carbon Dioxide Level 41 mmol/L (21-32) Anion Gap 0 (6-14) Blood Urea Nitrogen 100 mg/dL (8-26) Creatinine 1.8 mg/dL (0.7-1.3) Estimated GFR (Cockcroft-Gault) 35.9 Glucose Level 137 mg/dL (70-99) Calcium Level 7.9 mg/dL (8.5-10.1) Test 11/27/19 08:31 11/27/19 12:00 11/27/19 17:05 11/27/19 20:54 Glucose (Fingerstick) 166 mg/dL (70-99) 201 mg/dL (70-99) 371 mg/dL (70-99) 241 mg/dL (70-99) Test 11/28/19 06:40 11/28/19 08:06 Sodium Level 145 mmol/L (136-145) Potassium Level 4.2 mmol/L (3.5-5.1) Chloride Level 102 mmol/L (98-107) Carbon Dioxide Level 39 mmol/L (21-32) Anion Gap 4 (6-14) Blood Urea Nitrogen 91 mg/dL (8-26) Creatinine 1.5 mg/dL (0.7-1.3) Estimated GFR (Cockcroft-Gault) 44.3 Glucose Level 122 mg/dL (70-99) Calcium Level 8.3 mg/dL (8.5-10.1) Glucose (Fingerstick) 153 mg/dL (70-99) Laboratory Tests Test 11/27/19 12:00 11/27/19 17:05 11/27/19 20:54 11/28/19 06:40 Glucose (Fingerstick) 201 mg/dL (70-99) 371 mg/dL (70-99) 241 mg/dL (70-99) Sodium Level 145 mmol/L (136-145) Potassium Level 4.2 mmol/L (3.5-5.1) Chloride Level 102 mmol/L (98-107) Carbon Dioxide Level 39 mmol/L (21-32) Anion Gap 4 (6-14) Blood Urea Nitrogen 91 mg/dL (8-26) Creatinine 1.5 mg/dL (0.7-1.3) Estimated GFR (Cockcroft-Gault) 44.3 Glucose Level 122 mg/dL (70-99) Calcium Level 8.3 mg/dL (8.5-10.1) Test 11/28/19 08:06 Glucose (Fingerstick) 153 mg/dL (70-99) Medications Active Scripts Medications Dose Route/Sig Max Daily Dose Days Date Category Januvia (Sitagliptin Phosphate) 100 Mg Tablet 1 Tab PO DAILY 11/23/19 Reported Bumetanide 1 Mg Tablet 1 Tab PO DAILY 11/23/19 Reported Warfarin Sodium 2 Mg Tablet 2 Mg PO DAILY 11/23/19 Reported Proair Hfa Inhaler (Albuterol Sulfate) 8.5 Gm Hfa.aer.ad 2 Puff IH PRN Q4-6HRS PRN 21 06/06/19 Reported Multivitamins (Multivitamin) 1 Each Capsule 1 Cap PO DAILY 30 06/06/19 Reported Ferrous Sulfate 325 Mg Tablet 1 Tab PO DAILY 06/06/19 Reported Singulair Tablet (Montelukast Sodium) 10 Mg Tablet 10 Mg PO HS 06/06/19 Reported Metolazone 5 Mg Tablet 5 Mg PO DAILY 06/06/19 Reported Glipizide 5 Mg Tablet 1 Tab PO BIDAC 06/06/19 Reported Preservision Areds Softgel (Vit A/Vit C/Vit E/Zinc/Copper) 1 Each Capsule 1 Each PO BID 05/26/17 Reported Coreg (Carvedilol) 3.125 Mg Tablet 1 Tab PO BID 12/08/15 Reported Duoneb 0.5-3(2.5) Mg/3 Ml (Albuterol/Ipratropium) 3 Ml Ampul.neb 3 Ml IH Q4HRS 02/13/15 Reported Amlodipine Besylate 10 Mg Tablet 5 Mg PO DAILY 01/21/15 Reported Simvastatin 10 Mg Tablet 1 Tab PO QHS 01/21/15 Reported Comments CXR IMPRESSION: 1. Stable right basilar opacities. 2. Stable small bilateral pleural effusions. Impression . IMPRESSION: 1. 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 2. Acute on chronic diastolic heart failure. EF 30% 3. Type 2 diabetes with neuropathy. 4. Chronic kidney disease. 5. Hypertension. 6. Obstructive sleep apnea. 7. Severe chronic obstructive pulmonary disease. 8. Electrolyte abnormalities. 9. Peripheral neuropathy. 10. History of prostate cancer, treated with radiation. 11 SARS-CoV-2 negative Plan . SPOKE WITH PT. His trilogy machine is functional now. titrate O2 to saturations close to 90%, 2-3 litres adequate Continue BiPAP qhs as tolerated/ home trilogy ABG f/u improved. Continue diuresis per cardiology covid-19 testing, negative, nebulized treatment Continue steroids taper DVT/GI PPX ok with dc today D/W RN Pt. is ASHISHR, ROCK ORR MD Nov 28, 2019 09:30
[2019-11-28 11:00] VITALS: BP 167/71
[2019-11-28] MEDS ORDERED: PRED-220 PO (11:07)
[2019-11-28] MEDS ORDERED: AMOX1TAB58 PO (11:07)
--- NOTE | 2019-11-28 11:12 | SNU/HH DC ---
DISCHARGE WITH HOME HEALTH DISCHARGE INFORMATION: Final Diagnosis: Problems Medical Problems: (1) Chronic respiratory failure with hypoxia Status: Acute (2) COPD (chronic obstructive pulmonary disease) Status: Acute Condition on Discharge: Stable HOME HEALTH: Face to Face: I certify this patient is under my care and that I, or a nurse practitioner or physician's events assistant working with me, had a face to face encounter that meets the physician face to face encounter requirements with this patient on 11/28/19. Medical Complications: CHF RN For Eval/Treatment: Yes Physical Therapy For: Evalulation/Treatment Occupational Therapy For: Evaluation/Treatment Pt Meets Homebound Status: Unsteady balance w/ amb, POST DISCHARGE ORDERS: Activity Instructions for Disc: Resume previous activity (Cane/wheel chair) Weight Bearing Status after Di: As tolerated Bathing Instructions: Shower-keep dressing dry DIET AFTER DISCHARGE: Cardiac (ADA) Wound/Incision Care: Change dressing DC TO SNF OTHER: [facility] Wound Care CLinic weekly visit CHECKS AFTER DISCHARGE: Checks after discharge: Check blood press - daily, Check blood sugar, ac/hs, Weigh Yourself Daily FOLLOW-UP: PCP to follow Home Health: Yes Follow up with: Dr. Reyna Shaw in 6 days. TREATMENT/EQUIPMENT ORDERS: Discharge Respiratory Equipmen: Oxygen (2 to 3 L at rest and 4 L with activity. ), CPAP (Uses trilogy at night) CERTIFICATION STATEMENT: Certification Statement: Certification Statement: Based on the above finding, I certify that this patient is confined to the home and needs intermittent long term care, physical therapy and/or speech therapy, or continues to need occupational therapy.~ This patient is under my care, and I have initiated the establishment of the plan of care.~ This patient will be followed by myself or a community physician who will periodically review the plan of care. Home Meds Active Scripts Prednisone (PREDNISONE ) 10 Mg Tablet, 10 MG PO UD for copd, #15 TAB 0 Refills Take 5 tablets by mouth daily for 2 days, then take 4 tablets by mouth daily for 2 days, then take 3 tablets by mouth daily for 2 days, then take 2 tablets by mouth daily for 2 days, then take 1 tablets by mouth daily for 2 days, then stop. Prov:REYNA SHAW MD 11/28/19 Amoxicillin/Potassium Clav (AUGMENTIN 500-125 TABLET) 1 Each Tablet, 1 TAB PO BID for bronchitis, #10 TAB 0 Refills Prov:REYNA SHAW MD 11/28/19 Reported Medications Sitagliptin Phosphate (JANUVIA) 100 Mg Tablet, 1 TAB PO DAILY for diabetes, #30 TAB 5 Refills 11/23/19 Bumetanide (BUMETANIDE) 1 Mg Tablet, 1 TAB PO DAILY for diuretic, #90 TAB 1 Refill 11/23/19 Warfarin Sodium (WARFARIN SODIUM) 2 Mg Tablet, 2 MG PO DAILY for blood thinner, #30 TAB 11/23/19 Albuterol Sulfate (PROAIR HFA INHALER) 8.5 Gm Hfa.aer.ad, 2 PUFF IH PRN Q4-6HRS PRN for wheezing for 21 Days, #1 INHALER 0 Refills 06/06/19 Multivitamin (MULTIVITAMINS) 1 Each Capsule, 1 CAP PO DAILY for supp for 30 Days, #30 CAP 0 Refills 06/06/19 Ferrous Sulfate (FERROUS SULFATE) 325 Mg Tablet, 1 TAB PO DAILY for supp, #30 TAB 3 Refills 06/06/19 Montelukast Sodium (SINGULAIR TABLET ) 10 Mg Tablet, 10 MG PO HS for FOR ASTH MA, TAB 0 Refills 06/06/19 Metolazone (METOLAZONE) 5 Mg Tablet, 5 MG PO DAILY for bp, #30 TAB 0 Refills 06/06/19 Glipizide (GLIPIZIDE) 5 Mg Tablet, 1 TAB PO BIDAC for bs, #60 TAB 3 Refills 06/06/19 Vit A/Vit C/Vit E/Zinc/Copper (PRESERVISION AREDS SOFTGEL) 1 Each Capsule, 1 EACH PO BID, CAP 05/26/17 Carvedilol (COREG ) 3.125 Mg Tablet, 1 TAB PO BID, #180 TAB 1 Refill 12/08/15 Ipratropium/Albuterol Sulfate (DUONEB 0.5-3(2.5) MG/3 ML) 3 Ml Ampul.neb, 3 ML IH Q4HRS 02/13/15 Amlodipine Besylate (AMLODIPINE BESYLATE) 10 Mg Tablet, 5 MG PO DAILY for bp, TAB 01/21/15 Simvastatin (SIMVASTATIN) 10 Mg Tablet, 1 TAB PO QHS, #30 TAB 5 Refills 01/21/15 REYNA SHAW MD Nov 28, 2019 11:12
--- NOTE | 2019-11-28 11:20 | PDOC3 ---
IM DISCHARGE SUMMARY Date of Admission Date of Admission Date of Admission: Nov 23, 2019 at 02:05 Date of Discharge Date of Discharge November 28, 2019 Primary Diagnosis Primary Diagnosis 1. 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 2. Acute on chronic systolic and diastolic congestive heart failure. 3. Diabetes mellitus type 2 with neuropathy. 4. Chronic kidney disease stage 3. 5. Hypertension. 6. Obstructive sleep apnea, on Trilogy at home. 7. Severe chronic obstructive pulmonary disease. 8. Electrolyte imbalance. 9. Atrial fibrillation. 10. Physical deconditioning. 11. Osteoarthritis. 12. Obesity. 13. Peripheral neuropathy. 14. History of permanent pacemaker. 15. History of cancer of the prostate, treated with radiation therapy. 16. Hyperlipidemia. 17. Noncompliance with diet. 18. 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 Consults Consults Jason Ferguson MD; Veto Krishnamurthy DO; Jt Taylor MD; Kasi Campbell MD Labs Labs Laboratory Tests Test 11/27/19 12:00 11/27/19 17:05 11/27/19 20:54 11/28/19 06:40 Glucose (Fingerstick) 201 mg/dL (70-99) H 371 mg/dL (70-99) H 241 mg/dL (70-99) H Sodium Level 145 mmol/L (136-145) Potassium Level 4.2 mmol/L (3.5-5.1) Chloride Level 102 mmol/L (98-107) Carbon Dioxide Level 39 mmol/L (21-32) H Anion Gap 4 (6-14) L Blood Urea Nitrogen 91 mg/dL (8-26) H Creatinine 1.5 mg/dL (0.7-1.3) H Estimated GFR (Cockcroft-Gault) 44.3 Glucose Level 122 mg/dL (70-99) H Calcium Level 8.3 mg/dL (8.5-10.1) L Test 11/28/19 08:06 Glucose (Fingerstick) 153 mg/dL (70-99) H Laboratory Tests 11/28/19 06:40 Brief hospital course Brief hospital course This is an 89-year-old male who has been seen several times recently in my office and who is known to have multiple medical problems, who has chronic respiratory failure, on oxygen by nasal cannula and also using Trilogy at home, became more short of breath in the last 3 weeks. His dyspnea continued to get worse. He was noted to be in acute on chronic both systolic and diastolic congestive heart failure and has a history of ejection fraction of 30%. I increased his Bumex to 1 mg twice daily and then subsequently also changed to metolazone from 5 mg every other day to daily. The patient also saw the comfort station attendant. His swelling did improve some, but his dyspnea did not get much better. His oxygen requirements significantly up. He did not want to be hospitalized, but yesterday, he became much more short of breath and came to the Emergency Room and because of the worsening dyspnea, congestive heart failure, hypoxia and weakness, he was brought to the Emergency Room and has been admitted for further evaluation and management. He also stated that his BiPAP machine started malfunctioning also and as noted earlier he has Trilogy at home. Systems review at present time, the patient does admit to some cough, congestion, dyspnea. He denies any abdominal pain, nausea, vomiting, or diarrhea. His appetite is good. He feels tired. He has body aches. Denies any chills or fever. Last night, his ABG showed pH of 7.24, pCO2 of 90 and a pO2 of 125 on room air and the patient was placed on BiPAP and today also he has continued to require BiPAP. His WBC count was 8.8, hemoglobin 8.7. Sodium 143, potassium 4.8, BUN 85, creatinine 1.6. Today, his sodium is 146. Magnesium is 3. Albumin is 3.2. His BNP was 4306. Troponin was less than 0.017. Chest x-ray showed increased hazy attenuation in the right lower lung from 05/08/2019. Also, has small bilateral pleural effusions. Because of his multiple medical problems, the patient was admitted for further evaluation and management. For more details regarding the past history, family history, social history, surgical history and other details, please refer to History and Physical. 1. Acute on chronic , hypoxic and hypercapnic respiratory failure- start BiPAP. Continue oxygen by nasal cannula as needed. Resume home medications. Consult Dr. Florence for pulmonary evaluation and management. He is much more responsive today but patient told me to continue to take all the steps that are necessary as per my discretion. I will start him on IV steroids, albuterol inhaler and IV Zithromax and Rocephin Will not use nebulizer until COVID test is reported. Patient states that his trilogy machine at home is not working properly. I have advised him to check with . COVID-19 test has also been performed and is negative 2. Acute on chronic systolic and diastolic congestive heart failure with ejection fraction of 30% on previous echocardiogram. Consult Dr. Campbell for Cardiology evaluation and management. The patient had recently seen Dr. Cain who is his regular comfort station attendant. He does have chronic venous insufficiency, so some of the swelling may be because of that. Continues to have a lot of swelling and patient is receiving IV Bumex. 3. Diabetes mellitus type 2 with neuropathy. Not controlled due to steroids. Add Lantus. Continue glipizide and sliding scale insulin. 4. Obstructive sleep apnea. 5. Severe chronic obstructive pulmonary disease. Patient had exacerbation. This is responding to steroids. IV Solu-Medrol has been changed to oral prednisone 6. Physical deconditioning. 7. Atrial fibrillation. 8. Continue to monitor the protime. Continue Coumadin. 9. Diabetes mellitus type 2 with hyperglycemia. Continue to monitor blood sugar. 10. Chronic kidney disease stage III . BUN 100, creatinine 1.8. For details, please refer to the orders. 11. Physical deconditioning-continue PT/OT. Consult Dr. Ferguson. 12. Acute metabolic encephalopathy-Zyprexa ODT as needed. Steroids have been converted to p.o. This may also help. Patient is encouraged to wear BiPAP at night. Consider alf placement if remains stable. Discussed with . He is able to walk. I will discontinue Perez catheter. Condition, treatment and options discussed with the patient and the family. Discussed with staff about patient's needs. Condition, treatment, options, CODE STATUS and different options discussed with the patient and the family.. Patient would like to continue aggressive care for few days if he is very sick and then if there is no improvement could stop aggressive measures. Clinically patient is improving. Blood pressure remains high. Continue to monitor. Patient does not want to go to a alf care unit. He has also been accepted at [facility] rehab unit but patient would like to go home. I will discharge him home with home health services. His condition is improving and his trilogy machine is now working. Continue oxygen by nasal cannula 2 to 3 L/min at rest and 4 L with exertion. He is able to walk with physical therapy. Continue trilogy at night. He does not want to take insulin at home so we will continue to monitor as outpatient. Give him prednisone 20 mg daily for 5 days and then 10 mg daily for 5 days. IV antibiotics have been discontinued and he will be on Augmentin 500/125 1 tablet twice a day with food for 5 days. Patient slept well last night and did not have any issues with confusion or agitation. Medications Current Medications Medications (Trade) Dose Ordered Sig/Isaiah Route PRN Reason Start Time Stop Time Status Last Admin Dose Admin Insulin Human Lispro (HumaLOG) 0-9 UNITS TIDWMEALS SQ 11/28/19 08:00 11/28/19 09:13 Medications reviewed and reconciled for discharge. Allergy Allergies Coded Allergies Type Severity Reaction Last Updated Verified No Known Drug Allergies 02/16/15 No Follow up in 6 days. DISPOSITION: Home health services Comments Discharge Management - 35 minutes. For other details please refer to discharge instructions Justicifation of Admission Dx: Justifications for Admission: Justification of Admission Dx: Yes REYNA SHAW MD Nov 28, 2019 11:20
[2019-11-28] MEDS: cefTRIAXone IV Push 1 GM VIAL. IVP SCH (12:13)
[2019-11-28] MEDS: AZITHROMYCIN 500 MG in IV NORMAL SALINE 250ML 250 ML IV SCH (12:15)
--- NOTE | 2019-11-28 13:36 | NUR ---
SW following. Spoke with RN and reviewed chart. Met with pt. Pt was accepted at [facility] acute rehab but is now refusing and would like to discharge home with HH. Pt stated he would like a referral to [facility] as he did not like his previous HH provider, [facility]. SW completed a new patient choice of vendor form. SW notified [facility] of cancelled discharge to acute rehab. SW spoke with Alejandra from [facility] who met with pt and was provided with clinicals and discharge orders. Pt to discharge home today with no further SW needs at this time.
--- NOTE | 2019-11-28 14:55 | PDOC ---
JESSICA KAHN FLORAL ASSOCIATE 11/28/19 1454: CARDIO Progress Notes Date and Time Date of Service 11/28/19 Time of Evaluation 1215 Subjective Subjective: No Chest Pain, Other (LE edema, SOA improved improved) Vitals Vitals Vital Signs Date Time Temp Pulse Resp B/P (MAP) Pulse Ox O2 Delivery O2 Flow Rate FiO2 11/28/19 11:52 96 Nasal Cannula 2.0 11/28/19 11:00 98.4 60 18 167/71 (103) 98.4 Weight Weight [ ] Input and Output Intake and Output Intake and Output 11/28/19 07:00 Intake Total 1740 ml Output Total 3200 ml Balance -1460 ml Intake Oral 1740 ml Output Urine Total 3200 ml # Bowel Movements 1 Laboratory Labs Laboratory Tests Test 11/27/19 17:05 11/27/19 20:54 11/28/19 06:40 11/28/19 08:06 Glucose (Fingerstick) 371 mg/dL (70-99) 241 mg/dL (70-99) 153 mg/dL (70-99) Sodium Level 145 mmol/L (136-145) Potassium Level 4.2 mmol/L (3.5-5.1) Chloride Level 102 mmol/L (98-107) Carbon Dioxide Level 39 mmol/L (21-32) Anion Gap 4 (6-14) Blood Urea Nitrogen 91 mg/dL (8-26) Creatinine 1.5 mg/dL (0.7-1.3) Estimated GFR (Cockcroft-Gault) 44.3 Glucose Level 122 mg/dL (70-99) Calcium Level 8.3 mg/dL (8.5-10.1) Test 11/28/19 11:13 Glucose (Fingerstick) 269 mg/dL (70-99) Physical Exam HEENT: Neck Supple W Full Motion Chest: Symmetric LUNGS: Other (diminished bases ) Heart: RRR, murmurs (2/6 systolic murmur ) Abdomen: Soft N/T Extremities: Other (s/p left arm amputation, 2+ bilateral LE edema, chronic venous insufficiency) Neurology: alert, oriented, follow commands Assessment Assessment 1. Acute on chronic hypoxic respiratory failure. COVID negative 2. Acute on chronic systolic and diastolic heart failure. better compensated 3. NICM: LVEF 30% 4. Chronic venous insufficiency 5. Hypertension; labile 6. Diabetes, II 7. Chronic AFIB; AV paced. Chronic OAC with warfarin 8. SSS s/p PPM (Biotronik) 9. MARIVEL on CKD 10. COPD with chronic O2 use Recommendations Increase coreg for BP control Continued oral diuresis with metolazone and Bumex. Wound care to see prior to DC Leg elevation; discussed and encouraged this. Patient reports compliance a lthough he has been in chair with legs down every time I've rounded. LE compression Supportive care Follow up in our office with Dr. Cain as scheduled. Justicifation of Admission Dx: Justifications for Admission: Justification of Admission Dx: Yes ANISA CAIN MD 11/28/19 1504: CARDIO Progress Notes Plan Plan The patient was seen and interviewed as well as examined at the bedside. The chart was reviewed. The case was discussed. Agree with the plan of care. JESSICA KAHN APRN Nov 28, 2019 14:54 ANISA CAIN MD Nov 28, 2019 15:04
[2019-11-28 15:00] VITALS: BP 189/63
[2019-11-28] MEDS ORDERED: CARVEDILOL 6.25 MG TABLET. PO SCH (15:00)
--- NOTE | 2019-11-28 15:24 | NUR ---
Wound/Ostomy Care Wound Type/Assessment: Patient seen per wound care follow up. Patient is well known to us from the wound clinic. Patient has left leg stasis ulcer, right leg stasis ulcer with blister, and right knee blister. Wounds cleansed, assessed, measured, and pictured. The blister to the right leg is new and now draining. Patient is scheduled to discharge and will follow up with us in the wound clinic. Treatment Recommendations/Plan: Right leg-ABD pads, kerlix, and tape. change daily due to drainage. Right knee- contact layer and foam change every 3 days. Left leg- contact layer and foam change every 3 days. Education provided: Patient educated on dressing changes. Offloading surface/device: N/A Recommended Referrals/Tests: N/A Discharge Recommendations for dressings: Continue current treatment until patient follows up in the wound clinic. Patient will be discharging with as well. Bilateral compression recommended as well as elevation. Patient up in chair at this time. Call light in reach.
[2019-11-28] MEDS: WARFARIN 2 MG TABLET. PO SCH (16:00)
[2019-11-28 16:01] VITALS: BP 189/63
--- NOTE | 2019-11-28 16:25 | NUR ---
Discharge Note: PT DISCHARGED HOME WITH [facility]. PT LEFT FACILITY VIA PRIVATE VEHICLE WITH FAMILY MEMBERS. PT STABLE AND ALERT UPON DISCHARGE. PT PIV REMOVED FROM R AC WITHOUT COMPLICATIONS, BANDAGE APPLIED. PT EDUCATED ABOUT DISCHARGE INSTRUCTIONS, DISCHARGE MEDICATIONS, AND FOLLOW-UP CARE. PT AND FAMILY VOICED CONCERNS BUT ALL QUESTIONS ANSWERED PRIOR TO DISCHARGE. PT LEFT WITH ALL PERSONAL BELONGINGS, TRILOGY RESPIRATOR INCLUDED. CARMELITA DAVISON Discharge instructions and discharge home medications reviewed with Patient and a copy given. All questions have been answered and understanding verbalized.
== END 2019-11-28 16:32 | disposition home health service (06) | DRG 291 ==
LOC: ER 23:32 → 6 SOUTH 11-23 02:05 → 5 NORTH 11-27 18:23
PROVIDERS: ADMIT Internal Medicine; ATTEND Internal Medicine
PROC: 5A09457 Assistance with Respiratory Ventilation, 24-96 Consecutive Hours, Continuous Positive Airway Pressure (ICD-10-PCS; principal; 2019-11-23)
PROC: 5A09357 Assistance with Respiratory Ventilation, Less than 24 Consecutive Hours, Continuous Positive Airway Pressure (ICD-10-PCS; 2019-11-24)
PROC: 5A09357 Assistance with Respiratory Ventilation, Less than 24 Consecutive Hours, Continuous Positive Airway Pressure (ICD-10-PCS; 2019-11-25)
DX: I13.0 Hypertensive heart and chronic kidney disease with heart failure and stage 1 through stage 4 chronic kidney disease, or unspecified chronic kidney disease (principal); I50.43 Acute on chronic combined systolic (congestive) and diastolic (congestive) heart failure; J96.21 Acute and chronic respiratory failure with hypoxia; J96.22 Acute and chronic respiratory failure with hypercapnia; G93.41 Metabolic encephalopathy; N17.9 Acute kidney failure, unspecified; I48.20 Chronic atrial fibrillation, unspecified; I42.8 Other cardiomyopathies; Z66 Do not resuscitate; Z53.20 Procedure and treatment not carried out because of patient's decision for unspecified reasons; Z20.828 Contact with and (suspected) exposure to other viral communicable diseases; N18.3 Chronic kidney disease, stage 3 (moderate); J43.9 Emphysema, unspecified; I87.2 Venous insufficiency (chronic) (peripheral); I49.5 Sick sinus syndrome; I25.10 Atherosclerotic heart disease of native coronary artery without angina pectoris; G47.33 Obstructive sleep apnea (adult) (pediatric); E11.42 Type 2 diabetes mellitus with diabetic polyneuropathy; E11.22 Type 2 diabetes mellitus with diabetic chronic kidney disease; E11.65 Type 2 diabetes mellitus with hyperglycemia; E78.5 Hyperlipidemia, unspecified; M19.90 Unspecified osteoarthritis, unspecified site; W18.30XA Fall on same level, unspecified, initial encounter; G89.29 Other chronic pain; E66.9 Obesity, unspecified; E87.8 Other disorders of electrolyte and fluid balance, not elsewhere classified; E78.00 Pure hypercholesterolemia, unspecified; Z99.81 Dependence on supplemental oxygen; Z92.3 Personal history of irradiation; Z91.11 Patient's noncompliance with dietary regimen; Z87.891 Personal history of nicotine dependence; Z85.46 Personal history of malignant neoplasm of prostate; Z79.01 Long term (current) use of anticoagulants; Z68.31 Body mass index [BMI] 31.0-31.9, adult; Z87.01 Personal history of pneumonia (recurrent); Y93.89 Activity, other specified; Y92.009 Unspecified place in unspecified non-institutional (private) residence as the place of occurrence of the external cause; Y99.8 Other external cause status; Z89.232 Acquired absence of left shoulder
CPT/HCPCS: 36415; 36600; 71045; 80048; 80053; 82803; 82805; 82962; 83735; 83880; 84484; 85025; 85610; 93005; 94640; 94660; 94760; 99285; J0360; J0456; J0696; J1815; J2060; J2920; J3490; J7050; J7512; 97116-GP; 97530-GO; 97530-GP; 97535-GO; G0378; J7030; U0003-CS

== ENCOUNTER → 2019-12-12 | Outpatient (CLI) | payer MEDICARE ==
[2019-11-28 16:01] VITALS: BP 189/63
[~2019-12-12] MED LIST changes: +AMOX1TAB58 PO; +WARF2TAB96 PO
--- NOTE | 2019-12-12 16:49 | RAD ---
Bilateral lower extremity arterial ultrasound History: Nonhealing ulcers bilaterally of the extremities, smoking history, diabetes, hypertension Findings: Multiple grayscale, color, and duplex spectral analysis sonographic images were acquired of the lower extremity arteries bilaterally. There are no previous similar exams. There is scattered plaque, relatively greater of the posterior tibial arteries bilaterally. There are triphasic waveforms of the common femoral arteries bilaterally and biphasic waveforms of the profunda femoris arteries bilaterally. On the right, there are monophasic waveforms from the proximal right superficial femoral artery through the calf arteries. On the left, there are triphasic waveform of the left proximal superficial femoral artery, otherwise monophasic waveforms more distally. Velocities in cm/sec: RIGHT Common femoral artery 162 Profunda femoris artery 44 Proximal SFA 160 Mid SFA 111 Distal SFA 85 Popliteal artery 93 Posterior tibial artery 74 proximally and 77 distally Peroneal artery not visualized Anterior tibial artery 65 Dorsalis pedis artery 51 LEFT: Common femoral artery 158 Profunda femoris artery 67 Proximal SFA 135 Mid SFA 110 Distal SFA 58 Popliteal artery 93 Posterior tibial artery 84 proximally and 50 distally Peroneal artery not visualized Anterior tibial artery 82 Dorsalis pedis artery not seen Impression: 1. 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 Peroneal arteries are not visualized on either side. There are mostly abnormal monophasic waveforms of the lower extremity arteries bilaterally, on the right from the proximal superficial femoral artery to the calf arteries and on the left from the mid superficial femoral artery through the calf arteries. There is scattered plaque. DEVORA ART STUDY LOWER EXTREM ALETHEA History: Nonhealing ulcers bilaterally of the extremities, smoking history, diabetes, hypertension Comparison: None. Findings: Right DEVORA was 1.1, left DEVORA 1.1. Impression: 1. Ankle brachial indices are within normal limits. Electronically signed by: Phuc Melara MD (12/12/2019 4:46 PM) [id number]
== END | disposition home or self-care (01) ==
LOC: US 11:43
PROVIDERS: ATTEND Emergency Medicine Undersea and Hyperbaric Medicine
DX: I74.3 Embolism and thrombosis of arteries of the lower extremities (principal); I70.212 Atherosclerosis of native arteries of extremities with intermittent claudication, left leg; L97.909 Non-pressure chronic ulcer of unspecified part of unspecified lower leg with unspecified severity; I10 Essential (primary) hypertension; Z87.891 Personal history of nicotine dependence
CPT/HCPCS: 93922; 93925